=== PATIENT | female | born 1990 | race Caucasian/White ===

== ENCOUNTER → 2025-04-26 | Outpatient (CLI) | payer OTHER, SELFPAY ==
[2025-04-26 10:30] LABS: Hematocrit 34.2 % (37-47); Hemoglobin 11.6 g/dL (12.0-15.0); Immature Granulocytes Count 0.010 X10^3/uL (0.0-0.0); Mean Corp Hgb Conc 33.9 g/dL (32-36); Mean Corpuscular Volume 91.7 fL (81-99); Mean Platelet Vol. 10.1 fl (6.2-12.0); NRBC Flagged by Analyzer 0 % (0-5); Platelet Count 209 K/mm3 (150-450); RBC Distribution Width CV 12.0 % (11.6-14.6); RBC Distribution Width SD 40.3 fl (35.1-43.9); Red Blood Count 3.73 M/mm3 (4.2-5.4); White Blood Count 6.3 K/mm3 (4.4-11.0)
[2025-04-26 10:53] LABS: AST(SGOT) 18 U/L (<=31); Alanine Aminotransfer ALT/SGPT 14 U/L (<=34); Albumin, Serum 4.5 g/dL (3.5-5.0); Alkaline Phosphatase 95 U/L (35-104); Anion Gap 9 (5-15); BUN 14 mg/dL (4-19); BUN/Creat Ratio 21.0 RATIO (10-20); Calcium,Total 9.4 mg/dL (7.6-11.0); Carbon Dioxide 24.2 mmol/L (21.0-32.0); Chloride 106 mmol/L (98-108); Globulin 3.1 g/dL (2.2-4.2); Glucose 82 mg/dL (70-99); Potassium 4.2 mmol/L (3.3-5.1)
[2025-04-26 10:55] LABS: CRP < 3.00 mg/L (0.0-3.0)
--- OUTSIDE RECORDS SUMMARY | 2025-04-26 19:28 | XMS RPT_ITS | CCD ---
Author Organization [facility] Care Team Providers Care Electrician Outside Name Role Phone Miky Askew Primary Care Provider Tiara John Attending Unavailable EWA ASKEWSHUA Primary Care Unavailable ALYSSIA CAST Referring Unavailable ALYSSIA CAST Attending Unavailable ALYSSIA CAST Admitting Unavailable AZAR, MIKY Primary Care Unavailable ARABELLA RYAN Attending Unavailable ALYSSIA CAST Attending Unavailable EWA ASKEWSHUA Primary Care Unavailable Alvaro PARTS TECHNICIANTiara Schwartz Attending Provider Allergies Allergy Classification Reported Allergen(s) Allergy Type Date of Onset Reaction(s) Facility Latex (2 sources) Latex Substance Allergy 8 Swelling [facility] (5 sources) Latex Propensity to adverse reactions to drug 8 [place] (20 sources) Latex Propensity to adverse reactions 8 Hives, Itching, Swelling [facility] (1 source) Latex Drug allergy (disorder) 5 [facility] Repository Medications Current Medications Medication Drug Class(es) Dates Sig (Normalized) Sig (Original) acetaminophen 325 mg oral tablet (4 sources) Start: 09-21-2019 End: 09-21-2019 acetaminophen (TYLENOL) tablet 650 mg End: 09-23-2019 Acetaminophen (TYLENOL PO) T jen by mouth 0 09/23/2019 Discontinued (Stop Taking at Discharge) Acetaminophen (T YLENOL PO) Take by mouth 0 Active benzocaine 200 mg/ml / menthol 5 mg/ml topical spray (1 source) Standardized Chemical Allergen Start: 09-21-2019 benzocaine-menthol (DERMOPLAST) 20-0.5 % spray bifidobacterium animalis [id number] unt / lactobacillus acidophilus [id number] unt oral capsule (2 sources) Probiotic Produc t capsule Take by mouth. 0 Active docusate sodium 100 mg oral capsule (1 source) Start: 09-21-2019 docusate sodium (COLACE) capsule 100 mg Doxylamine Succinate, Sleep, (UNISOM PO) (2 sources) Doxylamine Succi ryan, Sleep, (UNISOM PO) Take by mouth 0 Active lactobacillus acidophilus [id number] unt oral capsule (1 source) Start: 10-12-2024 take 10 capsules by mouth once Lactobacillus Acidophilus (Probiotic) 10 billion cell capsule Active 50974 NMA PO ONCE October 12, 2024 1:00am lanolin 0.5 mg/mg topical ointment (1 source) Start: 09-21-2019 lanolin ointment Mesalamine (Canasa) 1,000 mg suppository (1 source) Start: 03-08-2025 Mesalamine (Canasa) 1,000 mg suppository Active 1 g RC AT BEDTIME as needed for colitis 30 1 March 08, 2025 10:08am Multivitamin tablet (1 source) Start: 10-24-2024 Multivitamin tablet Active 1 {tbl} PO daily October 24, 2024 1:00am [place]-3 Fatty Acids (FISH OIL PO) (6 sources) [place]-3 Fatty Ac ids (FISH OIL PO) Take by mouth 0 Active omeprazole 10 mg delayed release oral capsule (1 source) Proton Pump Inhibitor Start: 03-28-2021 take 1 capsule by mouth once daily omeprazole (PRILOSEC) 10 MG delayed release capsule Take 1 capsule by mouth daily 30 capsule 3 03/28/2021 Active ondansetron 4 mg oral tablet (8 sources) Serotonin-3 Receptor Antagonist Start: 10-24-2024 take 1 tablet by mouth every eight hours as needed Ondansetron Hcl 4 mg tablet Active 4 mg PO Q8H as needed October 24, 2024 1:00am Start: 08-31-2024 End: 08-31-2024 4 mg, IntraVENous, Once PRN, nausea, vomiting, Starting on Samira 08/31/24 at 0928, For 1 dose, Preprocedure Start: 03-28-2021 take 1 tablet by andreea th every eight hours as needed for nausea ondansetron (ZOFRAN ODT) 4 MG disintegrating tablet Take 1 tablet by mouth every 8 hours as needed for Nausea or Vomiting 30 tablet 1 03/28/2021 Active Start: 01-15-2021 take 1 tablet by andreea th every eight hours as needed for nausea ondansetron (ZOFRAN ODT) 4 MG disintegrating tablet Take 1 tablet by mouth every 8 hours as needed for Nausea or Vomiting 30 tablet 1 01/15/2021 Active Start: 09-21-2019 ondansetron (Z OFRAN) injection 4 mg Start: 03-15-2019 End: 09-23-2019 take 1 tablet by mouth three times daily as needed for nausea ondansetron (ZOFRAN-ODT) 4 MG disintegrating tablet TAKE 1 TABLET BY MOUTH 3 TIMES DAILY NEEDED FOR NAUSEA OR VOMITING 21 tablet 0 03/15/2019 09/23/2019 Discontinued (Stop Taking at Discharge) Vit w/Fe-Methylfol- FA (PNV PO) (6 sources) Vit w/F h-Yzqdnglkx-CM (PNV PO) Take by mouth 0 Active VIT W/FE-METHYLFOL- FA PO (20 sources) VIT W/F P-PWFDTOAKW-PO PO Take by mouth. Active VIT W/F H-DZVRLCQIM-ST PO Take by mouth. 0 Active Probiotic Product (PROBIOTIC ADVANCED PO) (3 sources) Probiotic Produc t (PROBIOTIC ADVANCED PO) Take by mouth 0 Active Probiotic Product capsule (20 sources) Probiotic Produc t capsule Take by mouth. Active Probiotic Produc t capsule Take by mouth. 0 Active raNITIdine 150 mg oral tablet (4 sources) Histamine-2 Receptor Antagonist Start: 04-07-2021 take 1 tablet by mouth once daily raNITIdine (ZANTAC) 150 MG tablet Indications: Heartburn during in second trimester Take 1 tablet by mouth daily 90 tablet 1 04/07/2021 Active Start: 08-28-2019 End: 09-23-2019 take 1 tablet by mouth twice daily ranitidine (ZANTAC) 150 MG tablet Indications: Chronic ulcerative rectosigmoiditis with complication (HCC) , Heartburn during in third trimester Take 1 tablet by mouth 2 times daily 60 tablet 2 08/28/2019 09/23/2019 Discontinued (Stop Taking at Discharge) End: 09-23-2019 raNITIdine HCl (ZANTAC PO) T jen by mouth 0 09/23/2019 Discontinued (Stop Taking at Discharge) raNITIdine HCl ( ZANTAC PO) Take by mouth 0 Active simethicone 80 mg chewable tablet (1 source) Start: 09-21-2019 simethicone (M YLICON) chewable tablet 80 mg witch rebecca 500 mg/ml medica moy pad (1 source) Start: 09-21-2019 witch rebecca-gl ycerin (TUCKS) pad Completed/Discontinued Medications Medication Drug Class(es) Dates Sig (Normalized) Sig (Original) 10 ml lidocaine hydrochloride 10 mg/ml injection (1 source) Antiarrhythmic, Amide Local Anesthetic Start: 09-21-2019 End: 09-21-2019 lidocaine PF 1 % injection mesalamine 1000 mg rectal suppository (20 sources) Aminosalicylate Start: 10-12-2024 take 1 capsule by mouth once daily in the morning Mesalamine 0.375 gram capsule,extended release 24hr Active 1.5 g PO EVERY MORNING October 12, 2024 1:00am Start: 10-12-2024 End: 03-08-2025 Mesalamine (Canasa) 1,000 mg suppository Discontinued 1 g RC AT BEDTIME as needed October 24, 2024 1:00am March 08, 2025 10:47am Start: 09-15-2023 End: 09-14-2024 mesalamine (Canasa) 1000 MG suppository Insert 1 suppository (1,000 mg) into the rectum Nightly. 30 suppository 11 09/15/2023 Active Start: 09-15-2022 End: 09-21-2025 take 4 capsules by mouth once daily mesalamine ER (Apriso) 0.375 g 24 hr capsule Take 4 capsules (1.5 g) by mouth daily. Do not crush or chew. 360 capsule 3 09/21/2024 09/21/2025 Active Start: 11-22-2020 End: 02-20-2021 mesalamine (CANASA) [address] 1 suppository rectally nightly 90 suppository 3 11/22/2020 Active Start: 09-25-2020 take 4 capsules by m outh once daily APRISO 0.375 g extended release capsule TAKE 4 CAPSULES BY MOUTH DAILY 360 capsule 6 09/25/2020 Active Start: 12-29-2019 mesalamine (CA NASA) [address] 1 suppository rectally nightly 90 suppository 3 12/29/2019 Active Start: 12-19-2019 take 4 capsules by m outh once daily APRISO 0.375 g extended release capsule TAKE 4 CAPSULES BY MOUTH DAILY 360 capsule 3 12/19/2019 Active Start: 09-22-2019 mesalamine (AP RISO) extended release capsule 1,500 mg Start: 06-09-2019 End: 11-19-2019 take 1000 mg rectal route once daily 1,000 mg, Rectal, NIGHTLY, First dose on Samira 09/21/19 at 2130 Pt taking own medication ( mesalamine 1000 mg supp.) take 4 capsules by m outh once daily mesalamine (APRISO) 0.375 g extended release capsule Take 1.5 g by mouth daily 0 Active oxyCODONE hydrochloride 5 mg oral tablet (1 source) Opioid Agonist Start: 09-21-2019 End: 09-21-2019 oxyCODONE (ROXICODONE) immediate release tablet 5 mg Start: 09-21-2019 End: 09-21-2019 oxyCODONE (ROXICODONE) immed iate release tablet 5 mg oxytocin (PITOCIN) 30 units in 500 mL infusion (1 source) Start: 09-21-2019 End: 09-21-2019 250 mL/hr, Intravenous, at 2 50 mL/hr, CONTINUOUS PRN, Bleeding, Starting Samira 09/21/19 at 1648 For Post Use Only. Give after delivery of placenta. Oxytocin 250cc is administered as an IV bolus at delivery followed by an additional 250cc over 1 hour (250cc/hr) Post Delivery oxytocin (PITOCIN) 30 units in 500 mL infusion Override Pull (1 source) Start: 09-21-2019 End: 09-21-2019 oxytocin (PITOCIN) 30 units in 500 mL infusion Override Pull VPX-QLGMVKMA-VXQO-FA PO (2 sources) End: 11-11-2022 ZPR-OBSVECBP-QUQB-F A PO Take by mouth. 0 11/11/2022 Discontinued 5 ml sodium chloride 9 mg/ml injection (12 sources) Start: 08-31-2024 End: 08-31-2024 10 mL, IntraVENous, Every 12 hours scheduled (2 times per day), First dose on Samira 08/31/24 at 0945 Start: 08-31-2024 End: 08-31-2024 take 100 mL intravenously every hour as needed, then take 20 mL intravenously every hour as needed 5-250 mL/hr, IntraVENous, PRN, if patient receiving piggyback infusions and maintenance fluids are not ordered OR KVO fluids to protect IV site / prevent frequent line interruptions/ long duration, Starting on [facility] 08/31/24 at 0935, For piggyback infusion, administer at same rate as piggyback for a total of 25 mL. Enter 25 mL into dose field and piggyback rate into rate field of order. If piggyback is infusing at a rate less than 100 mL/hr, enter 25 mL into dose field and 100 mL/hr into rate field of order. For KVO fluids, enter rate of 20 mL/hr or less into rate field of order. Start: 08-31-2024 End: 08-31-2024 take 10 mL intravenously once as needed 10 mL, IntraVENous, PRN, line care, Starting on [facility] 08/31/24 at 0935, After every IV line use Problems Active Problems Problem Classification Problem Date Documented Da te Episodic/Chronic Hemorrhoids (20 sources) Internal hemorrhoids grade I; Translations: [First degree hemorrhoids] Onset: 11-16-2018 11-16-2018 Episodic Hemorrhoids (4 sources) Internal hemorrhoids grade I; Translations: [First degree hemorrhoids] 11-16-2018 Other complications of (1 source) Heartburn; Translations: [Other specified related conditions, unspecified trimester] Onset: 04-07-2021 04-07-2021 Episodic Other and delivery including normal (20 sources) Normal ; Translations: [Term delivered] Onset: 02-20-2016 Resolved: 11-02-2019 03-05-2018 Episodic Regional enteritis and ulcerative colitis (20 sources) Chronic ulcerative rectosigmoiditis; Translations: [Ulcerative colitis] Onset: 02-20-2016 Resolved: 11-02-2019 03-02-2019 Chronic Residual codes; unclassified (2 sources) H/O: obstetric problem; Translations: [History of gestational diabetes mellitus (GDM) in prior , currently in first trimester] Onset: 03-02-2019 04-03-2019 Episodic Past or Other Problems Problem Classification Problem Date Documented Da te Episodic/Chronic Diabetes or abnormal glucose tolerance complicating ; childbirth; or the puerperium (6 sources) Gestational diabetes mellitus; Translations: [Gestational diabetes mellitus in , unspecified control] Onset: 04-29-2016 Resolved: 03-05-2018 03-05-2018 Episodic Hypertension complicating ; childbirth and the puerperium (4 sources) -induced hypertension; Translations: [-induced hypertension in third trimester] Onset: 07-25-2016 Resolved: 09-03-2016 09-03-2016 Chronic Hypertension complicating ; childbirth and the puerperium (2 sources) -induced hypertension; Translations: [Gestational [-induced] hypertension without significant proteinuria, third trimester] Onset: 07-25-2016 Resolved: 09-03-2016 09-03-2016 Episodic Immunizations and screening for infectious disease (7 sources) Rubella non-immune ; Translations: [Rubella non-immune status, antepartum] Onset: 03-16-2019 Resolved: 11-02-2019 03-16-2019 Episodic Noninfectious gastroenteritis (4 sources) Colitis; Translations: [Left sided colitis with rectal bleeding] Onset: 08-30-2018 08-30-2018 Episodic Other complications of ; puerperium affecting management of mother (6 sources) Missed labor; Translations: [Maternal care for intrauterine , not applicable or unspecified] Onset: 07-24-2016 Resolved: 09-03-2016 09-03-2016 Episodic Other complications of (7 sources) High risk ; Translations: [Supervision of high risk , unspecified, unspecified trimester] Onset: 04-03-2019 Resolved: 11-02-2019 04-03-2019 Episodic Other complications of (6 sources) Excessive growth affecting management of mother; Translations: [Maternal care for excessive growth, third trimester, not applicable or unspecified] Onset: 06-18-2016 Resolved: 09-03-2016 09-03-2016 Episodic Other complications of (6 sources) Supervision of with other poor reproductive or obstetric history, first trimester; Translations: [ with other poor obstetric history] Onset: 03-02-2019 Resolved: 11-02-2019 11-02-2019 Episodic Other complications of (6 sources) Uterine size for dates discrepancy; Translations: [Uterine size-date discrepancy, third trimester] Onset: 09-11-2019 Resolved: 11-02-2019 11-02-2019 Episodic Other complications of (3 sources) History of gestational diabetes mellitus; Translations: [Supervision of with other poor reproductive or obstetric history, unspecified trimester] Onset: 01-31-2021 Episodic Other screening for suspected conditions (not mental disorders or infectious disease) (3 sources) Cancer cervix screening status; Translations: [Encounter for screening for malignant neoplasm of cervix] Onset: 08-09-2024 08-08-2024 Episodic Unclassified (3 sources) Patient encounter status; Translations: [ care, antepartum] Onset: 09-06-2019 Resolved: 11-02-2019 11-02-2019 Results Test Name Value Interpretation Reference Range Facility 36on 11-16-2024 36 I called and spoke with patient re: sooner opening for next Wednesday. Patient did let us know she is in process of transferring GI care to a GI closer to her home. She also wanted to cancel upcoming appointment with Dr Cast. Cancelled appointment and removed from waiting list. [facility] Gastroenterology Visit Repor ton 10-24-2024 Gastroenterology Visit Report [facility] [address] [place] [address] OFFICE VISIT Date of Service: 10/24/24 MR#: [id number] Acct: [id number] Name: ZAINAB GONZALEZ Rep #: [id number] : 1990 Provider: FELA frederick Age/Sex: 33/F Location: [facility] [place] Status: Signed Intake Vital Signs 10/24/24 10:05 Height 5 ft 3 in Weight: 136 lb 4 oz BMI 24.1 BP 131/80 H Respiration 18 Pulse 90 Pulse Oximetry (%) 98 Oxygen Delivery Method room air Intake Visit Reasons: ULCERATIVE COLITIS Chief Complaint: establish for UC Systems Integration Manager Required: No Accompanied by: Daughter Is patient in pain?: No Allergies latex Adverse Reaction (Verified 10/24/24 09:52) Itching Hives Medications ???Medication ???Instructions ???Recorded ???Confirmed ???Type Lactobacillus acidophilus 10 10,000 mmu cells PO ONCE 10/12/24 10/12/24 History billion cell capsule (Probiotic) mesalamine 0.375 gram 1.5 g PO QAM 10/12/24 10/12/24 History capsule,extended release 24 hr mesalamine 1,000 mg rectal 1 g OR QHS PRN 10/24/24 10/24/24 History suppository (Canasa) multivitamin 1 tab PO QDAY 10/24/24 10/24/24 History ondansetron HCl 4 mg tablet 4 mg PO Q8H PRN 10/24/24 10/24/24 History Nurse's Note: Is having some rectal bleeding and is 99% sure it is from hemorrhoids, occasionally has diarrhea and it all seems related to her menstrual cycle. [facility] Medical History Gestational diabetes H/O flexible sigmoidoscopy Left sided colitis with rectal bleeding Surgical History Hx of colonoscopy History of dilation and curettage Family History Other Breast cancer Diabetes Hyperlipidemia Osteoarthritis Ulcerative colitis Social History adopted: Yes Smoking Status: Never smoker Electronic Cigarette Use: not used alcohol intake: never substance use type: marijuana HPI HPI Chief Complaint: establish for UC Details: ZAINAB GONZALEZ, is a 33 F who presents to the office today for Colon: 08/31/2024 ([place]) Findings: The digital rectal exam was normal. Internal hemorrhoids were found during retroflexion. The hemorrhoids were small and Grade I (internal hemorrhoids that do not prolapse). 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 Note: Although there is some limited active inflammation, the areas of moderate chronicity suggests a predominantly quiescent phase. Still, a secondary pattern with mild activity (intraepithelial lymphocytosis and focal surface injury) is present. While this pattern is subtle, it raises the possibility of an associated lymphocytic colitis. Please correlate clinically. SIGMOIDOSCOPY 11/16/2018 ([place]) A. LEFT COLON BIOPSY - FRAGMENT OF COLONIC MUCOSA WITH NO SIGNIFICANT HISTOPATHOLOGIC CHANGES B. RECTOSIGMOID, BIOPSY - CHRONIC ACTIVE COLITIS STOOL: 1x a day - formed BLEEDING: only during a flare - no bleeding in the past 3 months Mucus: none in past 3 months ABD PAIN: denies Rectal pain: denies MEDS: Apriso 4 capsules once daily, Canasa PRN - denies any Canasa in the past 2 months - weight is stable - reports when her kids have viral illnesses and she gets sick - she will have a UC flare - she was seeing Dr. Cast - but had to wait 7 months to get a f/u appt. and this was not working for her Initial diagnosis in 2016 - presenting symptoms were blood and mucus in stools - she has been using Apriso and Canasa - has only been using Canasa when in a flare - reports she has gone as long as 3-4 years w/o any UC flares - denies any symptoms for the past 2-3 months ROS Const Constitutional: No fatigue, fever(s) or weight change ENT ENT: No difficulty swallowing Gastro GI: Positive for bloating, Blood in stool and nausea/dyspepsia; No abdominal pain, belching, change in bowel habits, change in stool character, coffee ground emesis, constipation, cramping, diarrhea, heartburn, difficulty swallowing, feeling full early, excessive flatus, incontinent of stools, Vomiting blood/hematemesis, loose stools, Black,tarry stools, pain with swallowing, vomiting or other Musc Musculoskeletal: No joint pain Skin Skin: No yellowing of the eye or itchy eyes Psych Psychiatric: No anxiety and No depression Endo Endocrine: No fatigue or weight change Aller/Imm Allergy/Immunologic: No itchy eyes Enrike/Lymp Hematologic/Lymphati c: No easy bleeding or easy bruising Exam Const General: healthy appearing, no acute distress and well developed Nutritional Appearance: average body habitus and well nour (more content not included)... [facility] 3610-03-2024 36 Called and spoke with patient to get her scheduled for follow up with Dr Cast. Patient does have [facility] so will let us know if she needs to transfer care due to [facility] not accepting her insurance. Patient only available [phone] or [phone]. Scheduled for next available appointment in that time, 03/20/[address] Cast. Will also add patient to wait list in case sooner appointment becomes available. [facility] 36on 09-21-2024 36 Medication refilled [address] 09-20-2024 36 Name of Caller: Zainab Contact Reason for Appointment: Zainab called wishing to schedule a colonoscopy follow up appointment. Colonoscopy completed 08/31/2024. Patient advising does not wish to wait until February (next available appointment for CAC), and patient states prefers virtual or telemedicine visit if possible. Please advise. Office Name: Gastroenterology [facility] 36 Medication name: mesalamine ER (Apriso) 0.375 g 24 hr capsule Medication dosage: 0.375 g (Grams) Monthly quantity needed: 120 How many day supply requestin year Medication route: oral (PO) Medication administration time(s): Take 4 capsules (1.5 g) by mouth daily. Do not crush or chew If taking medication PRN, reason for taking medication: N/A If this is a controlled substance do you receive this or any other controlled medication from any other doctor or facility: N/A Ordering provider: Dr Cast Date of last office visit: 12/02/2023 Date of next office visit: not scheduled Date of last refill: (see medication tab): 09/13/2023 Updated/Validated preferred pharmacy: Yes Patient instructed to contact the pharmacy prior to picking up the medication: Yes [facility] Nursing Noteon 08-31-2024 Nursing Note Did not reach cecum, patient unable to tolerate with no sedation. Withdrawing scope. [address] 08-30-2024 36 Called and informed patient. Patient voiced full understanding. [place] [id number] Please advise. [facility] 36on 08-29-2024 36 Name of Caller: Zainab Contact Reason for Appointment: Patient stated that she had a Colonoscopy schedule on 08/31/24. Stated she got a letter that if she has a cold to call the office. Patient stated that she is not sick that she just has a little head cold from her kids being in school and bringing germs home. Patient also wanting to know that since she is not getting sedation, if she is aloud to listen to a book on audio while getting procedure done. Please call patient back to advise. Office Name: Gastroenterology Medication Refills need, if any: N/A Medication Name: N/A [facility] Office Visiton 08-09-2024 Follow-up visit [id number] Zainab Gonzalez 1990 F Date Provider Department Center 08/09/2024 [facility] Family History Adopted: Yes Problem Relation Age of Onset Osteoarthritis Mother Ovarian cancer Neg Hx Diabetes Paternal Grandmother Hyperlipidemia Father Ulcerative colitis Other Comments: 1/2 sibling Colon cancer Neg Hx Breast cancer Paternal Grandmother Comments: elderly Family Status - Relation Status Age at Mother Alive Neg Hx Paternal Grandmother Father Alive Other Level of Service:53991 OR PERIODIC PREVENTIVE MED EST PATIENT 18-39 YRS Reason for Visit and Comments: Annual Exam [83] - Well woman Last pap-04/12/2023, normal Normal [facility] Progress Noteon 08-09-2024 Progress Note Temperature Regulator was offered to the patient for exam. Patient accepted, clinical laboratory medical director in room during exam Normal [facility] Progress Note Zainab Gonzalez 08/09/2024 33 y.o. Primary Care Physician: Miky Askew, Chief Complaint Patient presents with Annual Exam Well woman Last pap-04/12/2023, normal HPI : Zainab Gonzalez is a 33 y.o. female here for annual exam Gynecologic History: Patient's last menstrual period was 08/04/2024 (exact date). Pt without complaints. Regular periods every month. No heavy bleeding or cramping. No pelvic pain. No vaginal discharge. OB History Para Term AB Living 4 3 3 0 1 3 SAB IAB Ectopic Multiple Live Births 1 0 0 0 3 # Outcome Date GA Lbr Carlos/2nd Weight Sex Type Anes PTL Lv 4 Term 08/28/21 40w3d 4082 g (9 lb) F Vag-Spont MARY Name: Cynthia 3 Term 12/05/19 39w5d F Vag-Spont None N MARY Comments: Active labor was 4 hours Name: Carla Gonzalez 2 SAB 01/31/17 Comments: D&C 1 Term 07/25/16 39w2d 3175 g (7 lb) M Vag-Spont EPI N MARY Complications: History of gestational diabetes mellitus (GDM) Name: Yuri Gonzalez Apgar1: 9 Apgar5: 9 Past Medical History: Diagnosis Date control Condoms/radha family planning- hx of OCP camrese Body mass index (BMI) of 24.0-24.9 in adult Dysmenorrhea having vomiting on Day 1 of period, started zofran Family history of breast cancer brca offered Gestational diabetes 04/29/2016 History of COVID-19 History of vaccination against human papillomavirus DECLINED GARDASIL Menorrhagia Missed SCHEDULED FOR THE SURGERY ON 03/07/2018 Nausea & vomiting uses zofran first day or 2 of period Ulcerative colitis (HCC) Past Surgical History: Procedure Laterality Date COLONOSCOPY DILATION AND CURETTAGE OF UTERUS DILATION AND CURETTAGE OF UTERUS 03/07/2018 FLEXIBLE SIGMOIDOSCOPY 11/16/2018 bx taken Family History Adopted: Yes Problem Relation Name Age of Onset Osteoarthritis Mother Ovarian cancer Neg Hx Diabetes Paternal Grandmother Hyperlipidemia Father Ulcerative colitis Other 1/2 sibling Colon cancer Neg Hx Breast cancer Paternal Grandmother elderly Social History Socioeconomic History Marital status: Spouse name: Not on file Number of children: Not on file Years of education: Not on file Highest education level: Not on file Occupational History Not on file Tobacco Use Smoking status: Never Smokeless tobacco: Never Vaping Use Vaping status: Never Used Substance and Sexual Activity Alcohol use: No Alcohol/week: 0.0 standard drinks of alcohol Drug use: Not Currently Types: Marijuana Sexual activity: Yes Partners: Male Other Topics Concern Not on file Social History Narrative Not on file Social Drivers of Health Financial Resource Strain: Not on file Food Insecurity: Not on file Transportation Needs: No Transportation Needs (08/09/2024) PRAPARE - Transportation Lack of Transportation (Medical): No Lack of Transportation (Non-Medical): No Physical Activity: Not on file Stress: Not on file Social Connections: Not on file Intimate Partner Violence: Not on file Housing Stability: Low Risk (08/09/2024) Housing Stability Vital Sign Unable to Pay for Housing in the Last Year: No Number of Times Moved in the Last Year: 0 Homeless in the Last Year: No MEDICATIONS: Current Outpatient Medications Medication Sig Dispense Refill mesalamine (Canasa) 1000 MG suppository Insert 1,000 mg into the rectum Nightly. mesalamine (Canasa) 1000 MG suppository Insert 1 suppository (1,000 mg) into the rectum Nightly. 30 suppository 11 mesalamine ER (Apriso) 0.375 g 24 hr capsule Take 4 capsules (1.5 g) by mouth daily. Do not crush or chew. 360 capsule 3 VIT [id number] PO Take by mouth. Probiotic Product capsule Take by mouth. No current facility-administere d medications for this visit. ALLERGIES: Allergies as of 08/09/2024 - Reviewed 08/09/2024 Allergen Reaction Noted Latex Hives, Itching, and Swelling 03/07/2018 REVIEW OF SYSTEMS: CONSTIUTIONAL: No fever, chills or malaise; No weight change or fatigue CV: No Chest Pain with Exertion, Palpitations, Syncope, Edema, Arrhythmia RESPIRATORY: No SOB, Pneumoniae,Cough, BREAST: No breast abnormalities or lumps GI: No Indigestion, Heartburn, Nausea, vomiting, Diarrhea, Constipation,Bloatin g or Bowel Changes; No Bloody Stools or melena : No Dysuria, Hematuria or Nocturia. No Urinary Incontinence or Vaginal Discharge,vaginal bleeding, or dysparuenia. NEURO: No CVA, Migraines, Epilepsy, Seizure Hx, or Limb Weakness DERM: No Rash, Itching, Hives, Mole Changes or Cancer PSYCH: No Depression, Homicidal thoughts,suicidal thoughts, or anxiety MUSCULOSKELETAL: No Arthralgia, or Arthritis HEME and LYMPH :No Lymphoma, Von Willebrand's, Hemophillia or Bleeding History PHYSICAL EXAM: Vitals: 08/09/24 1235 BP: 110/60 Weight: 57.2 kg (126 lb) Height: 1.6 m (5' 3 (more content not included)... Normal [facility] Progress Note Normal Normal [facility] 36on 04-07-2024 36 Spoke with pt, Colonoscopy r/s to 08/31/24 10:15 am, with Dr Cast. [facility] schedule updated Order submitted Open Case request called to scheduling (Hien) Case # [id number] Endo packet mailed to patient Prep sent via [employer] if pt acct active No sedation per pt request 60 min per provider Pt is aware they will need a straddle truck driver to take them home from procedure. Must be family member or friend. They cannot use any ride programs. Ex: Uber, Lyft, SCAT, bus, etc...) Normal [facility] Progress Noteon 12-02-2023 Progress Note GASTROENTEROLOGY OUTPATIENT TELEHEALTH VISIT Patient: Zainab Gonzalez Date of : 1990 Age: 33 y.o. Sex: female PCP: MIKY ASKEW DO Subjective: Patient was identified and seen today via Telehealth by agreement and consent. I used the following Telehealth technology: Audio and video capabilities. Patient location: Patient Location: Home. This patient encounter is appropriate and reasonable under the circumstances: transportation issues and feeling sick/caring for children . The patient has been advised of the potential risks and limitations of this mode of treatment (including but not limited to the absence of in-person examination) and has agreed to be treated in a remote fashion in spite of them. Any and all of the patient's/patient's family's questions on this issue have been answered and I have made no promises or guarantees to the patient. The patient has also been advised to contact this office for worsening conditions or problems, and seek emergency medical treatment and/or call 911 if the patient deems either necessary. The patient stated that they are currently in the [facility]. If the patient is a minor, permission has been obtained by the parent or guardian for the patient to receive medical care at this visit. Telehealth visit I have spent 30 minutes with the patient for TE and reviewing the chart and coordinating their care. S: GI f/u of IBD. Last GI clinic visit was virtual visit 10/2022 (see prior clinic note for details) Since last clinic visit, pt has been stable. IBD sx have controlled. Pt reports a intermittent flares since last visit that were controlled with Canasa suppositories. She is still on Apriso - does not need refills. 2 yr daughter, 4 yrsDaughter (Carla), 7 yrs Son Yuri GERD sx resolved. Pt attributes prior sx to Prior Colonoscopy: [address] Sheppard Flex Si11/16/2018 c/w proctitis Past Medical History: Diagnosis Date control Condoms/radha family planning- hx of OCP camrese Body mass index (BMI) of 24.0-24.9 in adult Dysmenorrhea having vomiting on Day 1 of period, started zofran Family history of breast cancer brca offered Gestational diabetes 04/29/2016 History of COVID-19 History of vaccination against human papillomavirus DECLINED GARDASIL Menorrhagia Missed SCHEDULED FOR THE SURGERY ON 03/07/2018 Nausea & vomiting uses zofran first day or 2 of period Ulcerative colitis (HCC) Past Surgical History: Procedure Laterality Date COLONOSCOPY DILATION AND CURETTAGE OF UTERUS DILATION AND CURETTAGE OF UTERUS 03/07/2018 FLEXIBLE SIGMOIDOSCOPY 11/16/2018 bx taken Social History Occupational History Not on file Tobacco Use Smoking status: Never Smokeless tobacco: Never Vaping Use Vaping Use: Never used Substance and Sexual Activity Alcohol use: No Alcohol/week: 0.0 standard drinks of alcohol Drug use: Not Currently Types: Marijuana Sexual activity: Yes Partners: Male Family History Adopted: Yes Problem Relation Name Age of Onset Osteoarthritis Mother Ovarian cancer Neg Hx Diabetes Paternal Grandmother Hyperlipidemia Father Ulcerative colitis Other 1/2 sibling Colon cancer Neg Hx Breast cancer Paternal Grandmother elderly Prior to Admission medications Medication Sig Start Date End Date Taking? Authorizing Provider mesalamine (Canasa) 1000 MG suppository Insert 1,000 mg into the rectum Nightly. Historical Provider, mesalamine (Canasa) 1000 MG suppository Insert 1 suppository (1,000 mg) into the rectum Nightly. 09/15/23 09/14/24 Alyssia Cast MD mesalamine ER (Apriso) 0.375 g 24 hr capsule Take 4 capsules (1.5 g) by mouth daily. Do not crush or chew. 09/13/23 09/12/24 Alyssia Cast MD VIT [id number] PO Take by mouth. Historical Provider, Probiotic Product capsule Take by mouth. Historical Provider, Allergies: Allergies Allergen Reactions Latex Hives, Itching and Swelling Localized to area of involvement Review of Systems: Constitutional: see HPI History obtained from the patient HENT ROS: denies ARMIJO, denies ear pain, denies sore throat, denies sinus pressure, + runny nose, post nasal drip Eyes: denies blurry vision Respiratory ROS: denies SOB, + cough Cardiovascular ROS: denies chest pain Gastrointestinal ROS: see HPI Genito-Urinary ROS: denies dysuria Musculoskeletal ROS: denies joint pain Neurological ROS: denies seizures, weakness, difficulty sleeping Dermatological ROS: denies rash Objective: Physical Exam: There were no vitals taken for this visit. No direct examination - Telehealth visit Gen: comfortable, appears nourished Skin: warm, dry Eyes: anicteric sclera Chest: normal effort Neuro: nonfocal Psych: normal mood and affect, thought content normal, alert and oriented Labs/Studies reviewed in Epic at today's current clinic visit (more content not included)... Normal [facility] SARS CoV 2 RNA(COVID 19), QU ALITATIVE [facility] 07-03-2021 SARS CoV 2 RNA Detected Abnormal NOT DETECTED [facility] Comment on above: Order Comment: 0 Result Comment: A Detected result indicates that the patient's specimen was positive for SARS-CoV-2 RNA. Test Method: Nucleic Acid Amplification Test including reverse mixing tank operator polymerase chain reaction (RT-PCR and mixing tank operator mediated amplification (TMA). The test method meets the [place] Centers for Disease Control and prevention (CDC) pre departure and arrival requirement for viral test for COVID-19 dated November 14, 2020. Testing requirements for traveling may change with time. The patient is responsible for determining the test requirements for each nation while they are traveling. This test has been authorized by the FDA under an Emergency Use Authorization (EUA) for use by authorized laboratories. Please review the Fact Sheets and FDA authorized labeling available for health care providers and patients using the following websites: https://www.[employer].com/home/Covid-19/HCP/NAAT/fact-sh eet2 https://www.[employer]/home/Covid-19/Patients/NAAT/ fact-sheet2 Due to the current public health emergency, [facility] is accepting samples from appropriate clinical sources collected using wide variety of swabs and transport media for COVID-19. Not detected test results derived from specimens received in non- commercially manufactured viral collection kits or those not yet authorized by FDA for COVID-19 testing should be cautiously evaluated and take extra precautions such as such as additional clinical monitoring, including collection of an additional specimen. Additional information about COVID-19 can be found at the [facility] website: www.[employer].com/Covid19. Performed By: #### [id number] #### [facility] [address], [address] [place] [address] Fisher Crab: Demetri Quezada MD CBCOrdered By: Nydia Cee on 05-20-2021 Hematocrit (Bld) [Volume fraction] 33.3 % Low 35.0 - 47.0 % [facility] Work Phone: Hemoglobin.gastrointes tinal spec 1 Ql (Stl) 11.4 g/dL Low 11.7 - 16.0 g/dL [facility] Work Phone: Interpretation and review of laboratory results Abnormal [facility] Work Phone: MCH (RBC) [Entitic mass] 32.2 pg 26.0 - 34.0 pg [facility] Work Phone: MCHC (RBC) [Mass/Vol] 34.4 % 32.0 - 36.0 % [facility] Work Phone: MCV (RBC) [Entitic vol] 93.6 fL 79.0 - 98.0 fL [facility] Work Phone: Platelet distribution width (Bld) [Ratio] 13.0 % 11.5 - 14.5 % [facility] Work Phone: Platelet mean volume (Bld) [Entitic vol] 7.5 fL 7.4 - 10.4 fL [facility] Work Phone: Platelets (Bld) [#/Vol] 233 10*3/uL 140 - 440 10*3/uL [facility] Work Phone: RBC (Bld) [#/Vol] 3.56 10*6/uL Low 3.80 - 5.2 0 10*6/uL [facility] Work Phone: WBC (Bld) [#/Vol] 8.5 10*3/uL 3.6 - 10.7 10*3/uL [facility] Work Phone: Test Performed by [employer], [address] , [place] [address] [employer]ino[employer] Work Phone: [facility] Work Phone: Glucose Challenge,1Hron 08-0 Glucose [Mass/Vol] 132 mg/dL Normal <140 [facility] Comment on above: Performed By: #### G C1H, HEMOG #### [facility] [address] [place] [address] Glucose tolerance, 1 hourOrd ered By: Nydia Cee on 05-20-2021 Glucose [Mass/Vol] 132 mg/dL <140 [facility] Work Phone: Test Performed by [facility] [employer], [address] , [address] Work Phone: [facility] Work Phone: Hemogramon 05-20-2021 Erythrocyte distribution width (RBC) [Ratio] 13.0 % Normal 11.5-14.5 [facility] Comment on above: Performed By: #### G C1H, HEMOG #### [facility] [address] [place] [address] Hematocrit (Bld) [Volume fraction] 33.3 % Low 35.0-47.0 [facility] Comment on above: Performed By: #### G C1H, HEMOG #### [facility] [address] [place] [address] Hemoglobin (Bld) [Mass/Vol] 11.4 g/dL Low 11.7-16.0 [facility] Comment on above: Performed By: #### G C1H, HEMOG #### [facility] [address] [place] [address] MCH (RBC) [Entitic mass] 32.2 pg Normal 26.0-34.0 [facility] Comment on above: Performed By: #### G C1H, HEMOG #### [facility] [address] [place] [address] MCHC 34.4 % Normal 32.0-36.0 [facility] Comment on above: Performed By: #### G C1H, HEMOG #### [facility] [address] [place] [address] MCV (RBC) [Entitic vol] 93.6 fL Normal 79.0-98.0 [facility] Comment on above: Performed By: #### G C1H, HEMOG #### [facility] [address] [place] [address] Platelet mean volume (Bld) [Entitic vol] 7.5 fL Normal 7.4-10.4 [facility] Comment on above: Performed By: #### G C1H, HEMOG #### [facility] [address] [place] [address] Platelets (Bld) [#/Vol] 233 10*3/uL Normal 140-440 [facility] Comment on above: Performed By: #### G C1Lindsay, HEMOG #### [facility] [address] [place] [address] RBC (Bld) [#/Vol] 3.56 10*6/uL Low 3.80-5.20 [facility] Comment on above: Performed By: #### G C1Lindsay, HEMOG #### [facility] [address] [place] [address] WBC (Bld) [#/Vol] 8.5 10*3/uL Normal 3.6-10.7 [facility] Comment on above: Performed By: #### G C1Lindsay, HEMOG #### [facility] [address] [place] [address] Hemoglobin Evaluationon 02-15 Erythrocyte Cnt 3.89 Mill/uL Normal 3.80-5.10 [facility] Comment on above: Performed By: #### G C1Lindsay, HEMOG #### [facility] [address] [place] [address] Hemoglobin A 98.0 % Normal >96.0 [facility] Comment on above: Performed By: #### G C1H, HEMOG #### [facility] [address] [place] [address] Hemoglobin A2 2.0 % Low 2.2-3.2 [facility] Comment on above: Performed By: #### G C1H, HEMOG #### [facility] [address] [place] [address] Hemoglobin F 0.0 % Normal <2.0 [facility] Comment on above: Performed By: #### G C1H, HEMOG #### [facility] [address] [place] [address] Interpretation see below Normal [facility] Comment on above: Result Comment: DECR EASED HbA2 There is a normal adult pattern of hemoglobins with the exception of reduced HbA2. Reduced HbA2 is a relatively common acquired disorder. It is commonly decreased in iron deficiency anemia. If the patient has microcytosis, and serum iron, TIBC, percent saturation and ferritin have excluded iron deficiency, the patient could have delta thalassemia or a delta chain variant alone. Acquired forms of alpha thalassemia can also decrease HbA2 such as seen in some cases of sideroblastic anemia, juvenile myelomonocytic leukemia, erytho- leukemia, and myelodysplastic syndrome which cause decreased HbA2 via impairment of alpha globin synthesis; however, in pre-malignant and malignant disease, hemoglobin F levels are usually elevated. Rare variant hemoglobins have been known to co-elute with hemoglobin A by high-performance liquid chromatography or capillary zone electrophoresis. If clinically indicated, Thalassemia and Hemoglobinopathy comprehensive is available (Test code 58509). Results were reviewed and interpreted by Mckenzie Squires, Ph.D. If additional information is needed, please call [phone]. Test Performed by [facility], [facility], [address] [place] [address] Derek Loza M.D., Ph.D., Director of Laboratories , CLIA [id number] Performed By: #### G C1H, HEMOG #### [facility] [address] [place] [address] MCH 31.8 pg Normal 27.0-33.0 [facility] Comment on above: Performed By: #### G C1H, HEMOG #### [facility] [address] [place] [address] MCV 93.0 FL Normal 80.0-100.0 [facility] Comment on above: Performed By: #### Anna Rahman, HEMOG #### [facility] [address] [place] [address] RDW 13.5 % Normal 11.0-15.0 [facility] Comment on above: Result Comment: Test Performed by [facility], [address] [facility], [address] [place] [address] Derek Loza M.D., Ph.D., Director of Laboratories , [place] [id number] Performed By: #### Anna Rahman, HEMOG #### [facility] [address] [place] [address] HIV 1,2 Ab; p24 Agon 021 HIV 1,2 Ab; p24 Ag Non-Reactive Normal Nonreactive [facility] Comment on above: Result Comment: Resu lts obtained using the FDA cleared 4th generation HIV test. This test detects antibodies to HIV1, HIV2, HIV Group O, and the presence of the HIV-1 p24 antigen. A Non-Reactive re- sult indicates the patient is negative for both HIV antibody and HIV p24 antigen. All reactive results will undergo reflex confirmation testing at an additional charge. Performed By: #### Anna Rahman, HEMOG #### [facility] [address] [place] [address] Hep B Surface Agon Hep B Surface Ag Not detected Normal Not-Detected [facility] Comment on above: Performed By: #### Anna Rahman, HEMOG #### [facility] [address] [place] [address] Hep C Antibodyon 02-21-2021 Hep C Antibody Not detected Normal Not-Detected [facility] Comment on above: Result Comment: Selena ents with DETECTED Hepatitis C Ab results should have a new specimen submitted for supplemental testing with a Hepatitis C Quantitative RNA assay (viral load), if clinically indicated. Performed By: #### G C1Lindsay, HEMOG #### [facility] [address] [place] [address] RPR, Qualon 02-21-2021 RPR, Qual Non-Reactive Normal Non-Reactive [facility] Comment on above: Performed By: #### G C1H, HEMOG #### [facility] [address] [place] [address] ABO Rh Blood Typeon 02-21-20 21 ABO and Rh group Nom (Bld) ABO Group: A Rh, Gel: POS Normal [facility] Comment on above: Performed By: #### A ART GARCIA #### [facility] ABO/RHOrdered By: Deanne Gross on 02-20-2021 ABO Grouping A [facility] Work Phone: Rh Type Positive [facility] Work Phone: Antibody Screen Gelon 2020 Antibody Screen Gel Antibody Screen Gel: NEG Normal [facility] Comment on above: Performed By: #### ART CANO #### [facility] [employer] CBCOrdered By: Deanne conteh on 02-20-2021 Hematocrit (Bld) [Volume fraction] 35.1 % 35.0 - 47.0 % [facility] Work Phone: Hemoglobin.gastrointes tinal spec 1 Ql (Stl) 12.2 g/dL 11.7 - 16.0 g/dL [facility] Work Phone: MCH (RBC) [Entitic mass] 31.0 pg 26.0 - 34.0 pg [facility] Work Phone: MCHC (RBC) [Mass/Vol] 34.7 % 32.0 - 36.0 % [facility] Work Phone: MCV (RBC) [Entitic vol] 89.6 fL 79.0 - 98.0 fL [facility] Work Phone: Platelet distribution width (Bld) [Ratio] 13.1 % 11.5 - 14.5 % [facility] Work Phone: Platelet mean volume (Bld) [Entitic vol] 7.6 fL 7.4 - 10.4 fL [facility] Work Phone: Platelets (Bld) [#/Vol] 286 10*3/uL 140 - 440 10*3/uL [facility] Work Phone: RBC (Bld) [#/Vol] 3.92 10*6/uL 3.80 - 5.2 0 10*6/uL [facility] Work Phone: WBC (Bld) [#/Vol] 10.1 10*3/uL 3.6 - 10.7 10*3/uL [facility] Work Phone: Test Performed by [facility], [address] [place] [address] [facility] Work Phone: Glucose Challenge,1Hron Glucose [Mass/Vol] 123 mg/dL Normal <140 [facility] Comment on above: Performed By: #### H KELLY GC1H #### [facility] [address] [address] #### HIV4, RPR, HEPC, HBSAG #### [facility] [address] [place] [phone] #### HGBFO #### The performing lab is in the report. #### RUBG #### [facility] [address] [place] [address] Glucose tolerance, 1 hourOrd ered By: Deanne Gross on 02-20-2021 Glucose [Mass/Vol] 123 mg/dL <140 [facility] Work Phone: Test Performed by [employer], [address] , [place] [address] [facility] Work Phone: Hemogramon 02-20-2021 Erythrocyte distribution width (RBC) [Ratio] 13.1 % Normal 11.5-14.5 [facility] Comment on above: Performed By: #### H KELLY GC1H #### [facility] [address] [place] [address] #### HIV4, RPR, HEPC, HBSAG #### [facility] [address] [place] [phone] #### HGBFO #### The performing lab is in the report. #### RUBG #### [facility] [address] [place] [address] Hematocrit (Bld) [Volume fraction] 35.1 % Normal 35.0-47.0 [facility] Comment on above: Performed By: #### H KELLY GC1H #### [facility] [address] [place] [address] #### HIV4, RPR, HEPC, HBSAG #### [address] #### HGBFO #### The performing lab is in the report. #### RUBG #### [facility] [address] [place] [address] Hemoglobin (Bld) [Mass/Vol] 12.2 g/dL Normal 11.7-16.0 [facility] Comment on above: Performed By: #### H KELLY GC1 #### [address] [place] [address] #### HIV4, RPR, HEPC, HBSAG #### [address] #### HGBFO #### The performing lab is in the report. #### RUBG #### [place] [address] [place] [address] MCH (RBC) [Entitic mass] 31.0 pg Normal 26.0-34.0 [facility] Comment on above: Performed By: #### H KELLY GC1H #### [address] [place] [address] #### HIV4, RPR, HEPC, HBSAG #### [address] #### HGBFO #### The performing lab is in the report. #### RUBG #### [facility] [address] [place] [address] MCHC 34.7 % Normal 32.0-36.0 [facility] Comment on above: Performed By: #### H EMOAnna, GC1H #### [facility] [address] [place] [address] #### HIV4, RPR, HEPC, HBSAG #### [address] #### HGBFO #### The performing lab is in the report. #### RUBG #### [facility] [address] [place] [address] MCV (RBC) [Entitic vol] 89.6 fL Normal 79.0-98.0 [facility] Comment on above: Performed By: #### H KELLY GC1H #### [facility] [address] [place] [address] #### HIV4, RPR, HEPC, HBSAG #### [address] #### HGBFO #### The performing lab is in the report. #### RUBG #### [facility] [address] [place] [address] Platelet mean volume (Bld) [Entitic vol] 7.6 fL Normal 7.4-10.4 [facility] Comment on above: Performed By: #### H KELLY GC1H #### [address] [place] [address] #### HIV4, RPR, HEPC, HBSAG #### [address] #### HGBFO #### The performing lab is in the report. #### RUBG #### [place] [address] [place] [address] Platelets (Bld) [#/Vol] 286 10*3/uL Normal 140-440 [facility] Comment on above: Performed By: #### H KELLY GC1H #### [address] [place] [address] #### HIV4, RPR, HEPC, HBSAG #### [address] #### HGBFO #### The performing lab is in the report. #### RUBG #### [facility] [address] [place] [address] RBC (Bld) [#/Vol] 3.92 10*6/uL Normal 3.80-5.20 [facility] Comment on above: Performed By: #### H EMOG, GC1H #### [facility] [address] [place] [address] #### HIV4, RPR, HEPC, HBSAG #### [address] [phone] #### HGBFO #### The performing lab is in the report. #### RUBG #### [facility] [address] [place] [address] WBC (Bld) [#/Vol] 10.1 10*3/uL Normal 3.6-10.7 [facility] Comment on above: Performed By: #### H EMOG, GC1H #### [facility] [address] [place] [address] #### HIV4, RPR, HEPC, HBSAG #### [address] [phone] #### HGBFO #### The performing lab is in the report. #### RUBG #### [facility] [address] [place] [address] No Panel InformationOrdered By: Deanne Gross on 02-20-2021 Test Performed by [facility] [employer] [facility], [address] , [place], [place] [address] [facility] Work Phone: RubellaOrdered By: Deanne Gross on 02-20-2021 Rubella virus IgG Ql (S) 27.9 [facility] Work Phone: Comment on above: Interpretation Table : <10.0 Antibody NOT Detected >=10.0 Antibody Detected Test Performed by [facility], [address] [place], [place] [address] [facility] Work Phone: Rubella Immune Statuson 05-0 Rubella Immune Status 27.9 Normal [facility] Comment on above: Result Comment: Inte rpretation Table: <10.0 Antibody NOT Detected >=10.0 Antibody Detected Performed By: #### H EMOG, GC1H #### [employer] [address] [place] [address] #### HIV4, RPR, HEPC, HBSAG #### [employer] [address] [place] [address] #### HGBFO #### The performing lab is in the report. #### RUBG #### [facility] [employer] [facility] [address] [place] [address] HCG, Quantitative, on 12-19-2020 hCG Quant 2015 m[IU]/mL Abnormal [facility] Work Phone: Comment on above: Females < 5 Values in should double every 2 to 3 days for the first 6 weeks.Elevated concentrations of human chorionic gonadotropin (hCG) measured in the first trimester of are observed in normal , but may serve as an indication of chorionic carcinoma, hydatiform mole, or multiple .Decreasing hCG concentrations indicate threatened or missed , recent termination of , ectopic , gestosis or intrauterine . Irma- and postmenopausal females may have detectable hCG concentrations (< or = to 14 mIU/mL) due to pituitary production of hCG. Serum follicle-stimulating hormone measurement may aid in ruling-out in this population. Cutoffs of greater than 20 to 45 mIU/mL have been suggested and are method dependent. False-elevations (called phantom human chorionic gonadotropin: hCG) may occur with patients who have human antianimal or heterophilic antibodies. Some specimens may not dilute linearly due to abnormal forms of hCG. Elevated hCG concentrations not associated with are found in patients with other diseases such as tumors of the germ cells, ovaries, bladder, pancreas, stomach, lungs, and liver. This test is not intended to detect or monitor tumors or gestational trophoblastic disease. Interpretation and review of laboratory results Abnormal [facility] Work Phone: Test Performed by [facility], [address] , [place], [place] [address] [facility] Work Phone: hCG Quantitativeon 1 hCG Quantitative 2014 m[IU]/mL Abnormal [facility] Comment on above: Result Comment: Fema les < 5 Values in should double every 2 to 3 days for the first 6 weeks.Elevated concentrations of human chorionic gonadotropin (hCG) measured in the first trimester of are observed in normal , but may serve as an indication of chorionic carcinoma, hydatiform mole, or multiple .Decreasing hCG concentrations indicate threatened or missed , recent termination of , ectopic , gestosis or intrauterine . Irma- and postmenopausal females may have detectable hCG concentrations (< or = to 14 mIU/mL) due to pituitary production of hCG. Serum follicle-stimulating hormone measurement may aid in ruling-out in this population. Cutoffs of greater than 20 to 45 mIU/mL have been suggested and are method dependent. False-elevations (called phantom human chorionic gonadotropin: hCG) may occur with patients who have human antianimal or heterophilic antibodies. Some specimens may not dilute linearly due to abnormal forms of hCG. Elevated hCG concentrations not associated with are found in patients with other diseases such as tumors of the germ cells, ovaries, bladder, pancreas, stomach, lungs, and liver. This test is not intended to detect or monitor tumors or gestational trophoblastic disease. Performed By: #### Q WNT4 #### [facility] [address] [place] [address] CORONAVIRUS 2019 BY PCRon CORONAVIRUS 2019,PCR NOT DETECTED Normal Not Detected [facility] Comment on above: Result Comment: . This assay is designed to detect the N, ORF1ab and/or S genes of SARS-CoV-2 via nucleic acid amplification. A Negative (NOT DETECTED) result does not preclude 2019-nCoV infection since the adequacy of sample collection and/or low viral burden may result in presence of viral nucleic acids below the clinical sensitivity of this test method. Negative (NOT DETECTED) result should not be used as the sole basis for treatment or other patient management decisions. Rather negative results should be combined with clinical observations, patient history, and epidemiological information to make patient management decisions. Fact sheet for providers: https://www.fda.gov/media/964975/download Fact sheet for patients: https://www.fda.gov/media/135725/download This test has received FDA Emergency Use Authorization (EUA) and has been verified by [facility] ([facility]). This test is only authorized for the duration of time that circumstances exist to justify the authorization of the emergency use of in vitro diagnostic tests for the detection of SARS-CoV-2 virus and/or diagnosis of COVID-19 infection under section 564(b)(1) of the Act, 21 U.S.C. 360bbb-3(b)(1), unless the authorization is terminated or revoked sooner. [facility] is certified under CLIA-88 as qualified to perform high complexity testing. Testing is performed in the [facility] laboratories located at [address] [place] [address]. Performed By: #### C OV19 #### [address] [place] [address] DATE OF SYMPTOM ONSET [[id number]]? [id number] Normal [facility] Comment on above: Performed By: #### C OV19 #### [address] [place] [address] EMPLOYED IN HEALTHCARE? No Normal [facility] Comment on above: Performed By: #### C OV19 #### [address] [facility] [place] [address] FIRST COVID NASAL SWAB TEST? Yes Normal [facility] Comment on above: Performed By: #### C OV19 #### [address] [facility] [place] [address] HOSPITALIZED (OR PLANNED TO BE ADMITTED)? No Normal [facility] Comment on above: Performed By: #### C OV19 #### [place] [address] [facility] [place] [address] ICU? No Normal [facility] Comment on above: Performed By: #### C OV19 #### [place] [address] [address] [facility] [place] [address] ? No Normal [facility] Comment on above: Performed By: #### C OV19 #### [place] [address] [facility] [place] [address] RESIDENT IN CONGREGATE CARE SETTING? No Normal [facility] Comment on above: Performed By: #### C OV19 #### [facility] [address] [place] [address] SYMPTOMATIC DEFINED BY CDC? Yes Normal [facility] Comment on above: Performed By: #### C OV19 #### [facility] [address] [place] [address] CORONAVIRUS 2019 BY PCRon Lab Specimen Source Nasal, Nasopharyngeal Normal [facility] Comment on above: Performed By: #### C OV19 #### [facility] [address] [place] [address] CR Knee Complete 4+ Views Le fton 07-30-2020 CR Knee Complete 4+ Views Left Patient Name: ZAINAB GONZALEZ Diagnostic Radiology Exam Date/Time 07/30/2020 13:16:44 EDT Exam CR Knee Complete 4+ Views Left Ordering Physician DO ASKEW JOSHUA D Accession Number [id number] CPT4 Codes 38907 () Reason For Exam lt knee pain Report LEFT KNEE History: Knee pain Findings: Four views of the left knee show no acute fracture, dislocation, bone erosion or periosteal reaction. The medial tibiofemoral and the lateral patellofemoral joint space appears slightly narrowed. IMPRESSION: Slight joint space narrowing. Otherwise unremarkable exam. Report Dictated on Final Dictating Physician: MD TARIQ AHMAD Signed Date and Time: 07/30/2020 1:54 pm Signed by: MD TARIQ AHMAD Transcribed Date and Time: 07/30/2020 1:55 Normal [facility] CR Knee Standing Bilateralon 07-30-2020 CR Knee Standing Bilateral Patient Name: ZAINAB GONZALEZ Diagnostic Radiology Exam Date/Time 07/30/2020 13:16:44 EDT Exam CR Knee Standing AP Bilateral Ordering Physician DO ASKEW JOSHUA D Accession Number [id number] CPT4 Codes 36563 () Reason For Exam lt knee pain Report FRONTAL WEIGHT-BEARING VIEW OF BOTH KNEES History: Knee pain Findings: Frontal weight-bearing view of both knees show unremarkable bone density. The medial tibiofemoral joint space appears slightly narrowed. To the extent visualized, there is no acute fracture, dislocation, or periosteal reaction. IMPRESSION: Slight joint space narrowing. Report Dictated on Final Dictating Physician: MD TARIQ AHMAD Signed Date and Time: 07/30/2020 1:56 pm Signed by: MD TARIQ AHMAD Transcribed Date and Time: 07/30/2020 1:57 Normal [facility] XR KNEE BILATERAL STANDINGon 07-30-2020 Patient Name: ZAINAB GONZALEZ ---Diagnostic Radiology--- Exam Date/Time 07/30/2020 13:16:44 EDT Exam CR Knee Standing AP Bilateral Ordering Physician DO ASKEW JOSHUA D Accession Number [id number] CPT4 Codes 80897 () Reason For Exam lt knee pain Report FRONTAL WEIGHT-BEARING VIEW OF BOTH KNEES History: Knee pain Findings: Frontal weight-bearing view of both knees show unremarkable bone density. The medial tibiofemoral joint space appears slightly narrowed. To the extent visualized, there is no acute fracture, dislocation, or periosteal reaction. IMPRESSION: Slight joint space narrowing. Report Dictated on --- Final --- Dictating Physician: MD TARIQ AHMAD Signed Date and Time: 07/30/2020 1:56 pm Signed by: MD TARIQ AHMAD Transcribed Date and Time: 07/30/2020 1:57 [facility]- MD, [place], [facility] Incoming Radiology Results From [facility] - 07/30/2020 1:57 PM EDT Patient Name: ZAINAB GONZALEZ ---Diagnostic Radiology--- Exam Date/Time 07/30/2020 13:16:44 EDT Exam CR Knee Standing AP Bilateral Ordering Physician DO ASKEW JOSHUA D Accession Number [id number] CPT4 Codes 35638 () Reason For Exam lt knee pain Report FRONTAL WEIGHT-BEARING VIEW OF BOTH KNEES History: Knee pain Findings: Frontal weight-bearing view of both knees show unremarkable bone density. The medial tibiofemoral joint space appears slightly narrowed. To the extent visualized, there is no acute fracture, dislocation, or periosteal reaction. IMPRESSION: Slight joint space narrowing. Report Dictated on --- Final --- Dictating Physician: MD TARIQ AHMAD Signed Date and Time: 07/30/2020 1:56 pm Signed by: MD TARIQ AHMAD Transcribed Date and Time: 07/30/2020 1:57 [place], [place] XR KNEE LEFT (MIN 4 VIEWS)on 07-30-2020 Patient Name: ZAINAB GOZNALEZ ---Diagnostic Radiology--- Exam Date/Time 07/30/2020 13:16:44 EDT Exam CR Knee Complete 4+ Views Left Ordering Physician DO ASKEW JOSHUA D Accession Number [id number] CPT4 Codes 69355 () Reason For Exam lt knee pain Report LEFT KNEE History: Knee pain Findings: Four views of the left knee show no acute fracture, dislocation, bone erosion or periosteal reaction. The medial tibiofemoral and the lateral patellofemoral joint space appears slightly narrowed. IMPRESSION: Slight joint space narrowing. Otherwise unremarkable exam. Report Dictated on --- Final --- Dictating Physician: MD TARIQ AHMAD Signed Date and Time: 07/30/2020 1:54 pm Signed by: MD TARIQ AHMAD Transcribed Date and Time: 07/30/2020 1:55 [place], [facility] Incoming Radiology Results From [facility] - 07/30/2020 1:55 PM EDT Patient Name: ZAINAB GONZALEZ ---Diagnostic Radiology--- Exam Date/Time 07/30/2020 13:16:44 EDT Exam CR Knee Complete 4+ Views Left Ordering Physician DO ASKEW JOSHUA D Accession Number [id number] CPT4 Codes 76917 () Reason For Exam lt knee pain Report LEFT KNEE History: Knee pain Findings: Four views of the left knee show no acute fracture, dislocation, bone erosion or periosteal reaction. The medial tibiofemoral and the lateral patellofemoral joint space appears slightly narrowed. IMPRESSION: Slight joint space narrowing. Otherwise unremarkable exam. Report Dictated on --- Final --- Dictating Physician: MD TARIQ AHMAD Signed Date and Time: 07/30/2020 1:54 pm Signed by: MD TARIQ AHMAD Transcribed Date and Time: 07/30/2020 1:55 [place], [place] CBCon 09-21-2019 Erythrocyte distribution width (RBC) [Ratio] 12.3 % 11.5 - 14.5 % [place] Hematocrit (Bld) [Volume fraction] 34.1 % Low 35 - 47 % [place] Hemoglobin (Bld) [Mass/Vol] 12.0 g/dL 11.7 - 16 g/dL [place] Interpretation and review of laboratory results Abnormal [place] MCH (RBC) [Entitic mass] 31.3 pg 26 - 34 pg [place] MCHC (RBC) [Mass/Vol] 35.2 % 32 - 36 % [place], [place] MCV (RBC) [Entitic vol] 89.0 fL 79 - 98 fL [place] Platelet mean volume (Bld) [Entitic vol] 9.0 fL 7.4 - 10.4 fL [place], [place] Platelets (Bld) [#/Vol] 245 10*3/uL 140 - 440 10*3/uL [place] RBC (Bld) [#/Vol] 3.83 10*6/uL 3.8 - 5.2 10*6/uL [place] WBC (Bld) [#/Vol] 10.1 10*3/uL 3.6 - 10.7 10*3/uL [place] [facility], [address] [place] [address] [place], [place] Hemogramon 09-21-2019 Erythrocyte distribution width (RBC) [Ratio] 12.3 % Normal 11.5-14.5 [facility] Comment on above: Performed By: #### H EMOG #### [place] [address] [address] [place], [place] Hematocrit (Bld) [Volume fraction] 34.1 % Low 35.0-47.0 [facility] Comment on above: Performed By: #### H EMOG #### [place] [address] [address] [place], [place] Hemoglobin (Bld) [Mass/Vol] 12.0 g/dL Normal 11.7-16.0 [facility] Comment on above: Performed By: #### H EMOG #### [place] [address] [address] [place], [place] MCH (RBC) [Entitic mass] 31.3 pg Normal 26.0-34.0 [facility] Comment on above: Performed By: #### H EMOG #### [place] [address] [address] [place], [place] MCHC (RBC) [Mass/Vol] 35.2 % Normal 32.0-36.0 [facility] Comment on above: Performed By: #### H EMOG #### [address] [place], [place] MCV (RBC) [Entitic vol] 89.0 fL Normal 79.0-98.0 [facility] Comment on above: Performed By: #### H EMOG #### [place] [address] [address] [place], [place] Platelet mean volume (Bld) [Entitic vol] 9.0 fL Normal 7.4-10.4 [facility] Comment on above: Performed By: #### H EMOG #### [address] [place], [place] Platelets (Bld) [#/Vol] 245 10*3/uL Normal 140-440 [facility] Comment on above: Performed By: #### H EMOG #### [place] [address] [address] [place], [place] RBC (Bld) [#/Vol] 3.83 10*6/uL Normal 3.80-5.20 [facility] Comment on above: Performed By: #### H EMOG #### [place] [address] [place] [address] WBC (Bld) [#/Vol] 10.1 10*3/uL Normal 3.6-10.7 [facility] Comment on above: Performed By: #### H EMOG #### [facility] [address] [place] [address] TS GELon 09-21-2019 TS GEL ABO Group: A Rh, Gel: POS Antibody Screen Gel: NEG Normal [facility] Comment on above: Performed By: #### T SGL #### [place] [address] [place] [address] [facility] TYPE AND SCREENon 09-21-2019 Sodium [Moles/Vol] Negative [place] Comment on above: Test Performed by [facility], [address] [place] [address] Sodium [Moles/Vol] Positive [place] Comment on above: Test Performed by [facility], [address] [place] [address] Sodium [Moles/Vol] A [place] Test Performed by [facility], [address] [place] [address] [place] CBCon 07-05-2019 Erythrocyte distribution width (RBC) [Ratio] 12.8 % 11.5 - 14.5 % [place] Hematocrit (Bld) [Volume fraction] 33.5 % Low 35 - 47 % [place] Hemoglobin (Bld) [Mass/Vol] 11.7 g/dL 11.7 - 16 g/dL [place] Interpretation and review of laboratory results Abnormal [place] MCH (RBC) [Entitic mass] 32.3 pg 26 - 34 pg [place] MCHC (RBC) [Mass/Vol] 35.0 % 32 - 36 % [place] MCV (RBC) [Entitic vol] 92.1 fL 79 - 98 fL [place] Platelet mean volume (Bld) [Entitic vol] 8.1 fL 7.4 - 10.4 fL [place], [place] Platelets (Bld) [#/Vol] 256 10*3/uL 140 - 440 10*3/uL [facility], [place] RBC (Bld) [#/Vol] 3.63 10*6/uL Low 3.8 - 5.2 10*6/uL [facility], [place] WBC (Bld) [#/Vol] 10.7 10*3/uL 3.6 - 10.7 10*3/uL [place] Test Performed by [facility], [address] , [address] Glucose tolerance, 1 houron 07-05-2019 Glucose [Mass/Vol] 119 mg/dL <140 [place] Test Performed by [facility], [address] [place] , [address] Surgical Pathologyon 019 Surgical Pathology [id number] [facility] PATHOLOGY AND LABORATORY MEDICINE [address] [place], [place] [id number] FINAL SURGICAL PATHOLOGY REPORT NAME: ZAINAB GONZALEZ : 1990 27 Y F BILLING NO.: [id number] LOCATION: 1XEO PROCEDURE 11/16/2018 DATE: SURGEON: ALYSSIA CAST MD RECEIVED 11/16/2018 DATE: ATTENDING: ALYSSIA CAST MD REPORT DATE: 11/17/2018 COPIES TO: DIAGNOSIS: A. LEFT COLON BIOPSY - FRAGMENT OF COLONIC MUCOSA WITH NO SIGNIFICANT HISTOPATHOLOGIC CHANGES B. RECTOSIGMOID, BIOPSY - CHRONIC ACTIVE COLITIS COMMENT: There is marked active colitis with crypt abscesses and mild architectural distortion. Granulomas are not identified. Dysplasia is not identified. The differential diagnosis of this pattern of injury most prominently includes diverticular-associa moy colitis and inflammatory bowel disease, among others. IVN/0RW Signature> S JOSÉ SIMS M.D. CLINICAL INFORMATION: History of colitis SPECIMEN: (A) COLON BIOPSY (B) COLON BIOPSY GROSS DESCRIPTION: A. Left colon biopsy Received in formalin is a segment of braxton tissue measuring 0.4 cm. Submitted in toto. (1 ns, 1) B. Rectosigmoid Received in formalin are multiple segments of braxton tissue aggregating to 0.4 x 0.4 cm. The specimen is entirely submitted in a single cassette. (bits ns, 1) [id number] Disclaimer: The following statement applies to all immunohistochemistry , in situ hybridization, molecular studies, and immunofluorescence testing. The use of one or more reagents in the above tests is regulated as an analyte specific reagent (ASR). These tests were developed and their performance characteristics determined by the clinical laboratories of [facility]. They have not been cleared by the US Food and Drug Administration (FDA). The FDA has determined that such clearance or approval is not necessary. All the above immunostains were performed on paraffin embedded tissue. Appropriate positive and negative controls (where applicable) were run in parallel with the patient's specimen; these controls showed expected staining pattern, with acceptable intensity of staining. Immunohistochemical assays have not been validated on decalcified tissues. Results should be interpreted with caution given the raised possibility of false negativity on decalcified specimens. Professional Performing Location: [address] [address]. DEPARTMENT OF PATHOLOGY AND LABORATORY MEDICINE [place], [place] [address] Normal [facility] Vital Signs Date Time Vital Sign Value Performing Clinician Facility 04-26-2025 09:37-0400 Body height 160.02 cm Tiara RYANC Work Phone: [facility] 04-26-2025 09:37-0400 Body mass index (BMI) [Ratio] 25.2 kg/m2 Tiara John NP-C Work Phone: [facility] 04-26-2025 09:37-0400 Body temperature 98.1 [degF] Tiara John NP-C Work Phone: [facility] 04-26-2025 09:37-0400 Body weight 64.52 kg Tiara Jonh NP-C Work Phone: [facility] 04-26-2025 09:37-0400 Diastolic blood pressure 75 mm[Hg] Tiara John NP-C Work Phone: [facility] 04-26-2025 09:37-0400 Heart rate 76 /min Tiara John NP-C Work Phone: [facility] 04-26-2025 09:37-0400 Respiratory rate 16 /min Tiara John NP-C Work Phone: [facility] 04-26-2025 09:37-0400 SaO2% (BldA) [Mass fraction] 98 % Tiara John NP-C Work Phone: [facility] 04-26-2025 09:37-0400 Systolic blood pressure 114 mm[Hg] Tiara John NP-C Work Phone: [facility] 08-31-2024 10:28-0500 Diastolic blood pressure 69 mm[Hg] Alyssia Cast MD Work Phone: [facility] [employer] 08-31-2024 10:28-0500 Heart rate 80 /min Alyssia Cast MD Work Phone: [facility] [employer] 08-31-2024 10:28-0500 Respiratory rate 18 /min Alyssia Cast MD Work Phone: [facility] [employer] 08-31-2024 10:28-0500 SaO2% (BldA) [Mass fraction] 100 % Alyssia Cast MD Work Phone: [facility] [employer] 08-31-2024 10:28-0500 Systolic blood pressure 97 mm[Hg] Alyssia Cast MD Work Phone: [facility] [employer] 08-31-2024 09:30-0500 Body height 160 cm Alyssia Cast MD Work Phone: [facility] [employer] 08-31-2024 09:30-0500 Body mass index (BMI) [Ratio] 23.03 kg/m2 Alyssia Cast MD Work Phone: [facility] [employer] 08-31-2024 09:30-0500 Body temperature 97.3 [degF] Alyssia Cast MD Work Phone: [facility] [employer] 08-31-2024 09:30-0500 Body weight 58.97 kg Alyssia Cast MD Work Phone: [facility] [employer] 08-09-2024 12:35-0400 Body height 160 cm Arabella Ryan MD Work Phone: [facility] [employer] 08-09-2024 12:35-0400 Body mass index (BMI) [Ratio] 22.32 kg/m2 Arabella Ryan MD Work Phone: [facility] [employer] 08-09-2024 12:35-0400 Body weight 57.15 kg Arabella Ryan MD Work Phone: [facility] [employer] 08-09-2024 12:35-0400 Diastolic blood pressure 60 mm[Hg] Arabella Ryan MD Work Phone: [facility] [employer] 08-09-2024 12:35-0400 Systolic blood pressure 110 mm[Hg] Arabella Ryan MD Work Phone: [facility] [employer] 05-10-2023 12:56-0400 Body height 160 cm Gopi Trinidad MD Work Phone: [facility] [employer] 05-10-2023 12:56-0400 Body mass index (BMI) [Ratio] 22.32 kg/m2 Gopi Trinidad MD Work Phone: [facility] [employer] 05-10-2023 12:56-0400 Body temperature 98.01 [degF] Gopi Trinidad MD Work Phone: [facility] [employer] 05-10-2023 12:56-0400 Body weight 57.15 kg Gopi Trinidad MD Work Phone: [facility] [employer] 05-10-2023 12:56-0400 Diastolic blood pressure 70 mm[Hg] Gopi Trinidad MD Work Phone: [facility] [employer] 05-10-2023 12:56-0400 Heart rate 89 /min Gopi Trinidad MD Work Phone: [facility] [employer] 05-10-2023 12:56-0400 Systolic blood pressure 105 mm[Hg] Gopi Trinidad MD Work Phone: [facility] [employer] 04-12-2023 09:43-0400 Body height 160 cm Arabella Ryan MD Work Phone: [facility] [employer] 04-12-2023 09:43-0400 Body mass index (BMI) [Ratio] 22.5 kg/m2 Arabella Ryan MD Work Phone: [facility] [employer] 04-12-2023 09:43-0400 Body weight 57.61 kg Arabella Ryan MD Work Phone: [facility] [employer] 04-12-2023 09:43-0400 Diastolic blood pressure 69 mm[Hg] Arabella Ryan MD Work Phone: [facility] [employer] 04-12-2023 09:43-0400 Heart rate 71 /min Arabella Ryan MD Work Phone: [facility] 04-12-2023 09:43-0400 Systolic blood pressure 107 mm[Hg] Arabella Ryan MD Work Phone: [facility] 09-23-2019 08:59-0500 Body Temperature 98.2 [degF] [facility], [place] 09-23-2019 08:59-0500 BP Diastolic 82 mm[Hg] [facility] , [place] 09-23-2019 08:59-0500 BP Systolic 119 mm[Hg] [facility] , [place] 09-23-2019 08:59-0500 Pulse (Heart Rate) 107 /min [facility], [place] 09-23-2019 08:59-0500 Pulse Oximetry 96 % [facility] , [place] 09-23-2019 08:59-0500 Respiratory Rate 16 /min [facility], [place] 09-21-2019 17:00-0500 BMI (Body Mass Index) 29.58 kg/m2 [facility], [place] 09-21-2019 17:00-0500 Body weight 75.75 kg [facility] , [place] 09-21-2019 17:00-0500 Height 160 cm [place], [place] Encounters Encounter Date Encounter Type Care Provider Facility Start: 04-26-2025 End: 04-26-2025 ambulatory Tiara CHAHAL Work Phone: -[facility] Start: 04-26-2025 End: 04-26-2025 Patient encounter procedure Tiara CHAHAL [facility] Work Phone: Start: 10-24-2024 End: 10-24-2024 ambulatory Tiara John Facility:[facility] Start: 09-20-2024 End: 10-03-2024 Telephone encounter Alyssia Cast MD Work Phone: [facility] - [place] Comment on above: Med Refill (mesalami ne ER (Apriso) 0.375 g 24 hr capsule) Appointment Request Start: 08-31-2024 End: 08-31-2024 ambulatory [facility] Start: 08-31-2024 End: 08-31-2024 Subsequent hospital visit by physician Alyssia Cast MD Work Phone: [facility] [address] [facility] Comment on above: Ulcerative proctitis with complication (HCC) Start: 08-09-2024 End: 08-09-2024 ambulatory [facility] Start: 08-09-2024 End: 08-09-2024 Encounter for gynecological examination (general) (routine) without abnormal findings ARABELLA RYAN [facility] Start: 08-09-2024 End: 08-09-2024 Patient encounter procedure Arabella Ryan MD Work Phone: [facility] Start: 08-09-2024 End: 08-09-2024 Periodic preventive med est patient 18-39 yrs Arabella Ryan MD Work Phone: [facility] Obstetrics [facility] Gyne[facility] [place] Comment on above: Well woman exam with routine gynecological exam; Cervical cancer screening Start: 12-02-2023 End: 12-02-2023 Office outpatient visit 25 minutes Alyssia Cast MD Work Phone: [facility] Comment on above: Ulcerative proctitis with complication (HCC) (Primary Dx) Start: 12-02-2023 End: 12-02-2023 ambulatory ALYSSIA CAST [facility] Start: 09-06-2023 Refill Alyssia rodarte MD Work Phone: [facility] Comment on above: Med Refill Start: 07-19-2023 ambulatory [facility] Start: 07-19-2023 Patient encounter procedure [facility] Start: 05-10-2023 End: 05-10-2023 Office outpatient new 30 minutes Gopi Trinidad MD Work Phone: [facility] Comment on above: Hemorrhoids, unspeci fied hemorrhoid type (Primary Dx) Start: 04-12-2023 End: 04-12-2023 Patient encounter status Arabella Ryan MD Work Phone: [facility] [employer] Work Phone: Start: 04-12-2023 End: 04-12-2023 Periodic preventive med est patient 18-39 yrs Arabella Ryan MD Work Phone: [facility] Comment on above: Encounter for gyneco logical examination without abnormal finding (Primary Dx); Hemorrhoids, unspecified hemorrhoid type Start: 11-12-2022 End: 11-12-2022 Office outpatient visit 25 minutes Alyssia Cast MD Work Phone: [facility] Comment on above: Ulcerative proctitis with complication (HCC) (Primary Dx) Start: 05-20-2021 End: 05-20-2021 Subsequent hospital visit by physician Nydia Cee MD Work Phone: [facility] Comment on above: care, antep artum Start: 02-20-2021 End: 02-20-2021 Subsequent hospital visit by physician Deanne WALTON Work Phone: [facility] Comment on above: History of gestation al diabetes in prior , currently Start: 12-19-2020 End: 12-19-2020 Subsequent hospital visit by physician Olga Hu Work Phone: [facility] Comment on above: with incon clusive viability, single or unspecified fetus Start: 07-30-2020 End: 07-30-2020 Subsequent hospital visit by physician Miky Askew Work Phone: [facility] Start: 09-21-2019 End: 09-23-2019 Evaluation and management of inpatient Nydia Cee Work Phone: [facility] Comment on above: Uterine size-date di screpancy in third trimester; Supervision of high risk , antepartum; Rubella non-immune status, antepartum; History of gestational diabetes mellitus (GDM) in prior , currently in first trimester; Chronic ulcerative rectosigmoiditis with complication (HCC) Start: 07-05-2019 End: 07-05-2019 Subsequent hospital visit by physician Arabella Ryan Work Phone: [facility] Comment on above: History of gestation al diabetes mellitus (GDM) in prior , currently in first trimester Procedures Date Procedure Procedure Detail Performing Clinician Start: 08-09-2024 Microscopic observat ion [Identifier] in Cervix by Cyto stain Alyssia Cast MD Work Phone: Start: 12-02-2023 Follow-up visit Follow-up ALYSSIA PARK Start: 04-12-2023 Microscopic observat ion [Identifier] in Cervix by Cyto stain Gopi Trinidad MD Work Phone: Start: 02-04-2022 Microscopic observat ion [Identifier] in Cervix by Cyto stain Alyssia Cast MD Work Phone: Start: 05-20-2021 Blood count complete automated Nydia Cee MD Work Phone: Start: 03-01-2021 Blood count hemoglobin Comment on above: Performed By: #### G C1H, HEMOG #### [facility] [address] [place] [address] Start: 02-20-2021 Antibody screen Charles ie Sedlak [employer] - CNM Work Phone: Start: 02-20-2021 Antibody screen rbc each serum technique Deanne Sedlak [employer] - CNM Work Phone: Start: 02-20-2021 Blood count complete automated Deanne Sedlak [employer] - CNM Work Phone: Start: 02-20-2021 RUBELLA IMMUNE Jahaira e Sedlak [employer] - CNM Work Phone: Start: 12-19-2020 Gonadotropin chorion ic quantitative Olga Hu Work Phone: Start: 09-04-2020 Follow-up visit Start: 07-30-2020 Radiologic exam both knees standing anteropost Miky Askew Work Phone: Start: 07-30-2020 Radiologic exam knee complete 4/more views Miky Askew Work Phone: Start: 09-21-2019 Blood count complete automated Vincenzo Israel Work Phone: Start: 09-21-2019 Blood typing serolog ic abo Vincenzo Israel Work Phone: Start: 07-05-2019 Blood count complete automated Arabella Ryan Work Phone: Start: 07-05-[address] gtt 3 specimens Arabella Ryan Work Phone: Plan of Treatment Date Care Activity Detail Author Start: 2066 RSV Immunization for Adults (1 - 1-dose 75+ series) RSV Immunization for Adults (1 - 1-dose 75+ series) [facility] Start: 2051 RSV Immunization aged 60 or older (1 - 1-dose 60+ series) RSV Immunization aged 60 or older (1 - 1-dose 60+ series) [facility] Start: 2041 Zoster Vaccines (1 of 2) Zoster Vaccines (1 of 2) [facility] Start: 07-31-2031 DTaP/Tdap/Td Vaccines (4 - Td or Tdap) DTaP/Tdap/Td Vaccines (4 - Td or Tdap) [facility] Start: 08-10-2029 DTaP/Tdap/Td vaccine (3 - Td or Tdap) DTaP/Tdap/Td vaccine (3 - Td or Tdap) [facility] Work Phone: Start: 08-10-2029 DTaP/Tdap/Td vaccine (3 - Td) DTaP/Tdap/Td vaccine (3 - Td) [place] Start: 08-09-2027 Screening for malignant neoplasm of cervix [facility] Start: 06-18-2026 DTaP/Tdap/Td vaccine (2 - Td) DTaP/Tdap/Td vaccine (2 - Td) [place] Start: 04-12-2026 Screening for malignant neoplasm of cervix [facility] Start: 08-22-2025 End: 08-22-2025 Patient encounter procedure 08/22/2025 12:30 PM EST Office Visit [facility] Obstetrics and Gynecology [facility] [address] [place] [address] [place] [address] Arabella Ryan MD [address] [place], [place] [id number] [facility]etric[facility] Gynecology [facility] Start: 02-04-2025 Screening for malignant neoplasm of cervix [facility] Start: 08-31-2024 End: 08-31-2024 Admission to same day surgery center 08/31/2024 10:30 AM EST - 08/31/2024 11:30 AM EST Surgery [facility] [address] [place] [address] Alyssia Cast MD [address] [facility] [address] [place] [phone] COLONOSCOPY [16451 (CPT )] [facility] [address] [facility] Comment on above: COLONOSCOPY [56833 (CPT )] Start: 08-31-2024 Subsequent hospital visit by physician 08/31/2024 10:30 AM EST Hospital Encounter [facility] [address] [address] [place] [address] Alyssia Cast MD [address] [facility] [address] [address] [place] [address] [facility] [address] [facility] Start: 08-31-2024 End: 08-31-2024 Colonoscopy flx dx w/collj spec when pfrmd [facility] Start: 06-18-2024 COVID-19 Vaccine ( season) COVID-19 Vaccine ( season) [facility] Start: 06-18-2024 Influenza vaccination Influenza Vaccine (#1) [facility] Start: 04-24-2024 End: 04-24-2024 Patient encounter procedure 04/24/2024 9:00 AM EDT Office Visit [facility] [address] [place] [address] [place] [phone] Arabella Ryan MD [address] [place] [address] [facility] Start: 04-14-2024 End: 04-14-2024 Admission to same day surgery center 04/14/2024 10:30 AM EDT - 04/14/2024 11:00 AM EDT Surgery [facility] [address] [place] [address] Alyssia Cast MD [address] [place] [phone] COLONOSCOPY [00701 (CPT )] [facility] [address] Comment on above: COLONOSCOPY [93654 (CPT )] Start: 04-14-2024 End: 04-14-2024 Colonoscopy flx dx w/collj spec when pfrmd COLONOSCOPY Ulcerative proctitis with complication (HCC) 04/14/2024 10:30 AM EDT [facility] Start: 04-14-2024 Subsequent hospital visit by physician 04/14/2024 10:30 AM EDT Hospital Encounter [facility] [address] [place] [phone] Alyssia Cast MD [address] [place] [address] [facility] [address] Start: 12-02-2023 End: 12-02-2023 Telemedicine consultation with patient 12/02/2023 1:00 PM EST Telemedicine [facility] [address] [place] [phone] Alyssia Cast MD [address] [place] [phone] [facility] Start: 09-01-2023 End: 09-01-2023 Patient encounter procedure 09/01/2023 10:00 AM EST Office Visit [facility] [address] [place] [phone] Gopi Trinidad MD [address] [place] [address] [facility] Start: 06-23-2023 End: 06-23-2023 Patient encounter procedure 06/23/2023 10:00 AM EDT Office Visit [facility] [address] [facility] [address] [place] [phone] Gopi Trinidad MD [address] [facility] [address] [place] [address] [facility] Start: 06-18-2023 COVID-19 Vaccine () COVID-19 Vaccine () [facility] Start: 06-18-2023 Influenza vaccination Influenza Vaccine (#1) [facility] Start: 05-10-2023 End: 05-10-2024 Anoscopy Anoscopy Procedures Routine Hemorrhoids, unspecified hemorrhoid type Expected: 05/10/2023 (Approximate), Expires: 05/10/2024 [facility] Work Phone: Comment on above: Expected: 05/10/2023 (Approximate), Expi res: 05/10/2024 Start: 05-10-2023 End: 05-10-2023 Patient encounter procedure 05/10/2023 1:00 PM EDT Office Visit [facility] [address] [facility] [address] [place] [phone] Gopi Trinidad MD [address] [facility] [address] [place] [address] [facility] Start: 03-29-2023 Screening for malignant neoplasm of cervix Cervical cancer screen [place] Start: 02-10-2023 End: 02-10-2023 Patient encounter procedure 02/10/2023 Office Visit Obstetrics and Gynecology Arabella Ryan MD [address] [place] [address] [facility] Start: 2021 Screening for malignant neoplasm of cervix HPV/Cotest [facility] Start: 06-18-2021 Influenza vaccination Flu vaccine (#1) [facility] Work Phone: Start: 06-11-2021 End: 06-11-2021 Patient encounter procedure 06/11/2021 Routine Obstetrics and Gynecology Arabella Ryan MD [address] [place], [place] [phone] [facility] Start: 03-20-2021 COVID-19 Vaccine (3 - Booster for Moderna series) COVID-19 Vaccine (3 - Booster for Moderna series) [facility] Start: 03-20-2021 COVID-19 Vaccine (3 - Moderna series) COVID-19 Vaccine (3 - Moderna series) [facility] Start: 02-28-2021 End: 02-28-2021 Patient encounter procedure 02/28/2021 Routine Obstetrics and Gynecology Warren Castillo MD [address] [place] [address] [phone] [facility] Start: 12-30-2020 End: 12-30-2020 Procedure visit [facility] Start: 06-18-2020 Influenza vaccination Flu vaccine (#1) [place] Start: 02-27-2020 Cervical cancer screen Cervical cancer screen [place] Start: 10-21-2019 Varicella vaccination [facility] Start: 07-14-2019 End: 07-14-2019 Routine 07/14/2019 Routine Obstetrics and Gynecology Sue Nichols MD [address] [place] [phone] [facility] AEROPHYSICIST Start: 06-18-2019 Influenza vaccination Flu vaccine (#1) [place] Start: 2010 Hepatitis B Vaccines (1 of 3 - 19+ 3-dose series) Hepatitis B Vaccines (1 of 3 - 19+ 3-dose series) [facility] [employer] Start: 2004 Varicella Vaccine (1 of 2 - 13+ 2-dose series) Varicella Vaccine (1 of 2 - 13+ 2-dose series) [place] Start: 2003 Depression Screening Depression Screening [facility] Start: 1992 Varicella vaccine (1 of 2 - 2-dose childhood series) Varicella vaccine (1 of 2 - 2-dose childhood series) [place] Start: 1991 Hepatitis B Vaccines (1 of 3 - 3-dose series) Hepatitis B Vaccines (1 of 3 - 3-dose series) [facility] Cytology Cervical or vaginal smear or scraping study Pap Smear Pathology and Cytology Routine Encounter for gynecological examination without abnormal finding 04/12/2023 10:05 AM EDT [facility] Cytology Cervical or vaginal smear or scraping study Pap Smear Pathology and Cytology Routine Well woman exam with routine gynecological exam Cervical cancer screening 08/09/2024 12:54 PM EDT [employer] Work Phone: End: 02-20-2021 Hemoglobin Fractionation Profile Hemoglobin Fractionation Profile Lab Routine History of gestational diabetes in prior , currently 1 Occurrences starting 02/20/2021 until 02/20/2021 [employer] Work Phone: Comment on above: 1 Occurrences starting 02/20/2021 until 02/20/2021 Hemoglobin Fractionation Profile Hemoglobin Fractionation Profile Lab Routine History of gestational diabetes in prior , currently 02/20/2021 3:11 PM EDT [facility] Work Phone: End: 02-20-2021 Hepatitis B Surface Antigen Hepatitis B Surface Antigen Lab Routine History of gestational diabetes in prior , currently 1 Occurrences starting 02/20/2021 until 02/20/2021 [facility] Work Phone: Comment on above: 1 Occurrences starting 02/20/2021 until 02/20/2021 Hepatitis B Surface Antigen Hepatitis B Surface Antigen Lab Routine History of gestational diabetes in prior , currently 02/20/2021 3:11 PM EDT [facility] Work Phone: End: 02-20-2021 Hepatitis C Antibody Hepatitis C Antibody Lab Routine History of gestational diabetes in prior , currently 1 Occurrences starting 02/20/2021 until 02/20/2021 [employer] Work Phone: Comment on above: 1 Occurrences starting 02/20/2021 until 02/20/2021 Hepatitis C Antibody Hepatitis C Antibody Lab Routine History of gestational diabetes in prior , currently 02/20/2021 3:11 PM EDT [facility] Work Phone: End: 02-20-2021 HIV Screen HIV Screen Lab Routine History of gestational diabetes in prior , currently 1 Occurrences starting 02/20/2021 until 02/20/2021 [employer] Work Phone: Comment on above: 1 Occurrences starting 02/20/2021 until 02/20/2021 HIV Screen HIV Screen Lab R outine History of gestational diabetes in prior , currently 02/20/2021 3:11 PM EDT [employer] Work Phone: End: 02-20-2021 RPR with FTA Relex RPR with FTA Relex Lab Routine History of gestational diabetes in prior , currently 1 Occurrences starting 02/20/2021 until 02/20/2021 [employer] Work Phone: Comment on above: 1 Occurrences starting 02/20/2021 until 02/20/2021 RPR with FTA Relex RPR with FTA Relex Lab Routine History of gestational diabetes in prior , currently 02/20/2021 3:11 PM EDT [employer] Work Phone: Tissue exam [facility] [employer] Work Phone: Comment on above: Release Upon Ordering for 1 Occurrences starting 08/31/2024 Immunizations Immunization Date Immunization Notes Care Provider [facility] 07-17-2022 influenza virus vaccine, unspecified formulation Gopi Trinidad MD Work Phone: [facility] [employer] 07-31-2021 tetanus toxoid, reduced diphtheria toxoid, and acellular pertussis vaccine, adsorbed Alyssia Cast MD Work Phone: [facility] [employer] 09-23-2019 measles, mumps [facility] rubella [facility] 09-21-2019 diphtheria, tetanus toxoids and acellular pertussis vaccine, unspecified formulation [facility], [place] 09-21-2019 measles, mumps and rubella virus vaccine [facility], [place] 06-18-2016 tetanus toxoid, reduced diphtheria toxoid, and acellular pertussis vaccine, adsorbed Arabella Ryan [facility] NEGATED: Highlighted row has not occurred!09-23-2019 tetanus toxoid, reduced diphtheria toxoid, and acellular pertussis vaccine, adsorbed [facility], [place] Comment on above: Deferred: - pt hernando natarajan received Payers Date Payer Category Payer Self-pay 2023 [employer] Blue [facility] Care - [facility]TH BLUE CROSS [id number] 2023 Unknown [id number] 2022 Unknown [id number] 2018 Private Health Insurance [facility] PLU xxxxxxxxx 2018-Present [phone] [address] [place] [address] xxxxxxxxx [id number] 2018 Private Health Insurance [facility] PLU [id number] 2018-Present [phone] [address] [place] [address] [id number] Private Health Insurance 111 [id number] Unknown [id number] Social History Date Type Detail Facility Start: 06-28-2019 End: 10-24-2024 Tobacco smoking status NHIS Never smoker [facility] [place] Start: 06-28-2019 End: 08-09-2024 Alcohol intake No [facility] Start: 12-31-2018 [facility] [place] [place] Start: 1990 Sex Assigned At Not on file M [facility], [place] Start: 03-29-2020 End: 05-08-2021 Tobacco use and exposure [facility] [place] Start: 03-29-2020 End: 09-01-2024 Alcohol intake Current non-drinker of alcohol (finding) [facility] [place] Start: 05-08-2021 End: 08-09-2024 Alcohol intake [facility] Work Phone: Start: 11-01-2022 End: 05-10-2023 Exposure to SARS-CoV-2 (event) Not sure [facility] In the past 12 month s, has lack of transportation kept you from medical appointments or from getting medications? No [facility] In the past 12 month s, was there a time when you were not able to pay the mortgage or rent on time? No [facility] Start: 05-18-2022 Sex Female (finding) [facility] [employer] Start: 1990 Sex Assigned At Female [facility] Clinical Notes 11-12-2022 to 11-16-2024 Telephone Encounter - Nisha Coreas MA - 11/16/2024 10:32 AM ESTTelephone Encounter - Nisha Coreas MA - 11/16/2024 10:32 AM ESTTelephone Encounter - Nisha Coreas MA - 10/03/2024 9:04 AM EST Note Date & Type Note Facility 11-16-2024 Telephone encounter Note I called and spoke with patient re: sooner opening for next Wednesday. Patient did let us know she is in process of transferring GI care to a GI closer to her home. She also wanted to cancel upcoming appointment with Dr Cast. Cancelled appointment and removed from waiting list. TY [facility] 11-16-2024 Miscellaneous Notes I called and spoke with patient re: sooner opening for next Wednesday. Patient did let us know she is in process of transferring GI care to a GI closer to her home. She also wanted to cancel upcoming appointment with Dr Cast. Cancelled appointment and removed from waiting list. TY Called and spoke with patient to get her scheduled for follow up with Dr Cast. Patient does have [facility] so will let us know if she needs to transfer care due to [facility] not accepting her insurance. Patient only available [phone] or [phone]. Scheduled for next available appointment in that time, 03/20/[address] Cast. Will also add patient to wait list in case sooner appointment becomes available. Name of Caller: Zainab Contact Reason for Appointment: Zainab called wishing to schedule a colonoscopy follow up appointment. Colonoscopy completed 08/31/2024. Patient advising does not wish to wait until February (next available appointment for [facility]), and patient states prefers virtual or telemedicine visit if possible. Please advise. Office Name: Gastroenterology documented in this encounter [facility] 10-03-2024 Telephone encounter Note Called and spoke with patient to get her scheduled for follow up with Dr Cast. Patient does have [facility] so will let us know if she needs to transfer care due to [facility] not accepting her insurance. Patient only available [phone] or [phone]. Scheduled for next available appointment in that time, 03/20/[address] Cast. Will also add patient to wait list in case sooner appointment becomes available. [facility] 09-21-2024 Telephone encounter Note Medication refilled [facility] 09-21-2024 Miscellaneous Notes Medication refilled Medication name: mesalamine ER (Apriso) 0.375 g 24 hr capsule Medication dosage: 0.375 g (Grams) Monthly quantity needed: 120 How many day supply requestin year Medication route: oral (PO) Medication administration time(s): Take 4 capsules (1.5 g) by mouth daily. Do not crush or chew If taking medication PRN, reason for taking medication: N/A If this is a controlled substance do you receive this or any other controlled medication from any other doctor or facility: N/A Ordering provider: Dr Cast Date of last office visit: 12/02/2023 Date of next office visit: not scheduled Date of last refill: (see medication tab): 09/13/2023 Updated/Validated preferred pharmacy: Yes Patient instructed to contact the pharmacy prior to picking up the medication: Yes documented in this encounter [facility] 09-20-2024 Telephone encounter Note Name of Caller: Zainab Contact Reason for Appointment: Zainab asndhu wishing to schedule a colonoscopy follow up appointment. Colonoscopy completed 08/31/2024. Patient advising does not wish to wait until February (next available appointment for CAC), and patient states prefers virtual or telemedicine visit if possible. Please advise. Office Name: Gastroenterology [facility] [employer] 09-20-2024 Telephone encounter Note Medication name: mesalamine ER (Apriso) 0.375 g 24 hr capsule Medication dosage: 0.375 g (Grams) Monthly quantity needed: 120 How many day supply requestin year Medication route: oral (PO) Medication administration time(s): Take 4 capsules (1.5 g) by mouth daily. Do not crush or chew If taking medication PRN, reason for taking medication: N/A If this is a controlled substance do you receive this or any other controlled medication from any other doctor or facility: N/A Ordering provider: Dr Cast Date of last office visit: 12/02/2023 Date of next office visit: not scheduled Date of last refill: (see medication tab): 09/13/2023 Updated/Validated preferred pharmacy: Yes Patient instructed to contact the pharmacy prior to picking up the medication: Yes [facility] 08-31-2024 Nurse Note Did not reach cecum, patient unable to tolerate with no sedation. Withdrawing scope. [facility] 08-31-2024 Nurse Note Did not reach cecum, patient unable to tolerate with no sedation. Withdrawing scope. documented in this encounter [facility] 08-31-2024 Note Formatting of this n ote might be different from the original. [facility]ab [facility] Procedure Date: 08/31/2024 10:02 AM Gender: Female Date of : 1990 Age: 33 Admit Type: Outpatient Note Status: Finalized Endoscopist: Alyssia Cast MD, [id number] Procedure: Colonoscopy Indications: Determine extent and severity of inflammatory bowel disease Findings: The digital rectal exam was normal. Biopsies were taken with a cold forceps for histology at 50cm, 40cm, 30cm, 20cm, rectum. Internal hemorrhoids were found during retroflexion. The hemorrhoids were small and Grade I (internal hemorrhoids that do not prolapse). Impression: - Biopsies were taken with a cold forceps for histology. - Internal hemorrhoids. Recommendation: - Patient has a contact number available for emergencies. The signs and symptoms of potential delayed complications were discussed with the patient. Return to normal activities tomorrow. Written discharge instructions were provided to the patient. - Await pathology results. - Continue present medications. - Resume previous diet. - High fiber diet. - Return to referring physician as previously scheduled. - Repeat colonoscopy PRN. Referring MD: Miky Askew DO CC Letter to: Miky Askew DO Medicines: Monitored Anesthesia Care Procedure: Pre-Anesthesia Assessment: - Prior to the procedure, a History and Physical was performed, and patient medications and allergies were reviewed. The patient is competent. The risks and benefits of the procedure and the sedation options and risks were discussed with the patient. All questions were answered and informed consent was obtained. Patient identification and proposed procedure were verified by the physician, the nurse and the commercial retoucher in the pre-procedure area in the procedure room. Mental Status Examination: alert and oriented. Respiratory Examination: clear to auscultation. CV Examination: normal. Prophylactic Antibiotics: The patient does not require prophylactic antibiotics. Prior Anticoagulants: The patient has taken no anticoagulant or antiplatelet agents. ASA Grade Assessment: II - A patient with mild systemic disease. After reviewing the risks and benefits, the patient was deemed in satisfactory condition to undergo the procedure. The anesthesia plan was to use no sedation or anesthesia. Immediately prior to administration of medications, the patient was re-assessed for adequacy to receive sedatives. The heart rate, respiratory rate, oxygen saturations, blood pressure, adequacy of pulmonary ventilation, and response to care were monitored throughout the procedure. The physical status of the patient was re-assessed after the procedure. After I obtained informed consent, the scope was passed under direct vision. Throughout the procedure, the patient's blood pressure, pulse, and oxygen saturations were monitored continuously. The Colonoscope was introduced through the anus with the intention of advancing to the cecum. The scope was advanced to the sigmoid colon before the procedure was aborted due to patient discomfort. Medications were not given per pt request for unsedated colonoscopy. The quality of the bowel preparation was adequate. Anatomical landmarks were photographed. The colonoscopy was performed with difficulty due to the patient's discomfort during the procedure, therefore unable to advance to cecum. Complications: No immediate complications. Procedure Code(s): --- Professional --- 85426, 52, Colonoscopy, flexible; with biopsy, single or multiple --- Technical --- 32788, 52, Colonoscopy, flexible; with biopsy, single or multiple Diagnosis Code(s): --- Professional --- K64.0, First degree hemorrhoids K52.3, Indeterminate colitis --- Technical --- K64.0, First degree hemorrhoids K52.3, Indeterminate colitis CPT copyright 2021 [employer]. All rights reserved. The codes documented in this report are preliminary and upon inpatient coder review may be revised to meet current compliance requirements. Attending Participation: I personally performed the entire procedure. Alyssia Cast MD 08/31/2024 10:32:30 AM Number of Addenda: 0 Note Initiated On: 08/31/2024 10:02 AM [facility] 08-31-2024 Note Formatting of this n ote might be different from the original. [facility]ab Gonzalez Procedure Date: 08/31/2024 10:02 AM Gender: Female Date of : 1990 Age: 33 Admit Type: Outpatient Note Status: Finalized Endoscopist: Alyssia Cast MD, [id number] Procedure: Colonoscopy Indications: Determine extent and severity of inflammatory bowel disease Findings: The digital rectal exam was normal. Biopsies were taken with a cold forceps for histology at 50cm, 40cm, 30cm, 20cm, rectum. Internal hemorrhoids were found during retroflexion. The hemorrhoids were small and Grade I (internal hemorrhoids that do not prolapse). Impression: - Biopsies were taken with a cold forceps for histology. - Internal hemorrhoids. Recommendation: - Patient has a contact number available for emergencies. The signs and symptoms of potential delayed complications were discussed with the patient. Return to normal activities tomorrow. Written discharge instructions were provided to the patient. - Await pathology results. - Continue present medications. - Resume previous diet. - High fiber diet. - Return to referring physician as previously scheduled. - Repeat colonoscopy PRN. Referring MD: Miky Askew DO CC Letter to: Miky Askew DO Medicines: Monitored Anesthesia Care Procedure: Pre-Anesthesia Assessment: - Prior to the procedure, a History and Physical was performed, and patient medications and allergies were reviewed. The patient is competent. The risks and benefits of the procedure and the sedation options and risks were discussed with the patient. All questions were answered and informed consent was obtained. Patient identification and proposed procedure were verified by the physician, the nurse and the commercial retoucher in the pre-procedure area in the procedure room. Mental Status Examination: alert and oriented. Respiratory Examination: clear to auscultation. CV Examination: normal. Prophylactic Antibiotics: The patient does not require prophylactic antibiotics. Prior Anticoagulants: The patient has taken no anticoagulant or antiplatelet agents. ASA Grade Assessment: II - A patient with mild systemic disease. After reviewing the risks and benefits, the patient was deemed in satisfactory condition to undergo the procedure. The anesthesia plan was to use no sedation or anesthesia. Immediately prior to administration of medications, the patient was re-assessed for adequacy to receive sedatives. The heart rate, respiratory rate, oxygen saturations, blood pressure, adequacy of pulmonary ventilation, and response to care were monitored throughout the procedure. The physical status of the patient was re-assessed after the procedure. After I obtained informed consent, the scope was passed under direct vision. Throughout the procedure, the patient's blood pressure, pulse, and oxygen saturations were monitored continuously. The Colonoscope was introduced through the anus with the intention of advancing to the cecum. The scope was advanced to the sigmoid colon before the procedure was aborted due to patient discomfort. Medications were not given per pt request for unsedated colonoscopy. The quality of the bowel preparation was adequate. Anatomical landmarks were photographed. The colonoscopy was performed with difficulty due to the patient's discomfort during the procedure, therefore unable to advance to cecum. Complications: No immediate complications. Procedure Code(s): --- Professional --- 21843, 52, Colonoscopy, flexible; with biopsy, single or multiple --- Technical --- 80269, 52, Colonoscopy, flexible; with biopsy, single or multiple Diagnosis Code(s): --- Professional --- K64.0, First degree hemorrhoids K52.3, Indeterminate colitis --- Technical --- K64.0, First degree hemorrhoids K52.3, Indeterminate colitis CPT copyright 2021 [employer]. All rights reserved. The codes documented in this report are preliminary and upon inpatient coder review may be revised to meet current compliance requirements. Attending Participation: I personally performed the entire procedure. Alyssia Cast MD 08/31/2024 10:32:30 AM Number of Addenda: 0 Note Initiated On: 08/31/2024 10:02 AM [facility] 08-31-2024 Note Endoscopy Center- [facility] Patient Name: Zainab Gonzalez Procedure Date: 08/31/2024 10:02 AM Gender: Female Date of : 1990 Age: 33 Admit Type: Outpatient Note Status: Finalized Endoscopist: Alyssia Cast MD, [id number] Procedure: Colonoscopy Indications: Determine extent and severity of inflammatory bowel disease Findings: The digital rectal exam was normal. Biopsies were taken with a cold forceps for histology at 50cm, 40cm, 30cm, 20cm, rectum. Internal hemorrhoids were found during retroflexion. The hemorrhoids were small and Grade I (internal hemorrhoids that do not prolapse). Impression: - Biopsies were taken with a cold forceps for histology. - Internal hemorrhoids. Recommendation: - Patient has a contact number available for emergencies. The signs and symptoms of potential delayed complications were discussed with the patient. Return to normal activities tomorrow. Written discharge instructions were provided to the patient. - Await pathology results. - Continue present medications. - Resume previous diet. - High fiber diet. - Return to referring physician as previously scheduled. - Repeat colonoscopy PRN. Referring MD: Miky Askew DO CC Letter to: Miky Askew DO Medicines: Monitored Anesthesia Care Procedure: Pre-Anesthesia Assessment: - Prior to the procedure, a History and Physical was performed, and patient medications and allergies were reviewed. The patient is competent. The risks and benefits of the procedure and the sedation options and risks were discussed with the patient. All questions were answered and informed consent was obtained. Patient identification and proposed procedure were verified by the physician, the nurse and the commercial retoucher in the pre-procedure area in the procedure room. Mental Status Examination: alert and oriented. Respiratory Examination: clear to auscultation. CV Examination: normal. Prophylactic Antibiotics: The patient does not require prophylactic antibiotics. Prior Anticoagulants: The patient has taken no anticoagulant or antiplatelet agents. ASA Grade Assessment: II - A patient with mild systemic disease. After reviewing the risks and benefits, the patient was deemed in satisfactory condition to undergo the procedure. The anesthesia plan was to use no sedation or anesthesia. Immediately prior to administration of medications, the patient was re-assessed for adequacy to receive sedatives. The heart rate, respiratory rate, oxygen saturations, blood pressure, adequacy of pulmonary ventilation, and response to care were monitored throughout the procedure. The physical status of the patient was re-assessed after the procedure. After I obtained informed consent, the scope was passed under direct vision. Throughout the procedure, the patient's blood pressure, pulse, and oxygen saturations were monitored continuously. The Colonoscope was introduced through the anus with the intention of advancing to the cecum. The scope was advanced to the sigmoid colon before the procedure was aborted due to patient discomfort. Medications were not given per pt request for unsedated colonoscopy. The quality of the bowel preparation was adequate. Anatomical landmarks were photographed. The colonoscopy was performed with difficulty due to the patient's discomfort during the procedure, therefore unable to advance to cecum. Complications: No immediate complications. Procedure Code(s): --- Professional --- 10796, 52, Colonoscopy, flexible; with biopsy, single or multiple --- Technical --- 84896, 52, Colonoscopy, flexible; with biopsy, single or multiple Diagnosis Code(s): --- Professional --- K64.0, First degree hemorrhoids K52.3, Indeterminate colitis --- Technical --- K64.0, First degree hemorrhoids K52.3, Indeterminate colitis CPT copyright 2021 [employer]. All rights reserved. The codes documented in this report are preliminary and upon inpatient coder review may be revised to meet current compliance requirements. Attending Participation: I personally performed the entire procedure. Alyssia Cast MD 08/31/2024 10:32:30 AM Number of Addenda: 0 Note Initiated On: 08/31/2024 10:02 AM [facility] 08-31-2024 Miscellaneous Notes [facility]: Zainab [facility] Procedure Date: 08/31/2024 10:02 AM Gender: Female Date of : 1990 Age: 33 Admit Type: Outpatient Note Status: Finalized Endoscopist: Alyssia Cast MD, [id number] Procedure: Colonoscopy Indications: Determine extent and severity of inflammatory bowel disease Findings: The digital rectal exam was normal. Biopsies were taken with a cold forceps for histology at 50cm, 40cm, 30cm, 20cm, rectum. Internal hemorrhoids were found during retroflexion. The hemorrhoids were small and Grade I (internal hemorrhoids that do not prolapse). Impression: - Biopsies were taken with a cold forceps for histology. - Internal hemorrhoids. Recommendation: - Patient has a contact number available for emergencies. The signs and symptoms of potential delayed complications were discussed with the patient. Return to normal activities tomorrow. Written discharge instructions were provided to the patient. - Await pathology results. - Continue present medications. - Resume previous diet. - High fiber diet. - Return to referring physician as previously scheduled. - Repeat colonoscopy PRN. Referring MD: Miky Askew DO CC Letter to: Miky Askew DO Medicines: Monitored Anesthesia Care Procedure: Pre-Anesthesia Assessment: - Prior to the procedure, a History and Physical was performed, and patient medications and allergies were reviewed. The patient is competent. The risks and benefits of the procedure and the sedation options and risks were discussed with the patient. All questions were answered and informed consent was obtained. Patient identification and proposed procedure were verified by the physician, the nurse and the commercial retoucher in the pre-procedure area in the procedure room. Mental Status Examination: alert and oriented. Respiratory Examination: clear to auscultation. CV Examination: normal. Prophylactic Antibiotics: The patient does not require prophylactic antibiotics. Prior Anticoagulants: The patient has taken no anticoagulant or antiplatelet agents. ASA Grade Assessment: II - A patient with mild systemic disease. After reviewing the risks and benefits, the patient was deemed in satisfactory condition to undergo the procedure. The anesthesia plan was to use no sedation or anesthesia. Immediately prior to administration of medications, the patient was re-assessed for adequacy to receive sedatives. The heart rate, respiratory rate, oxygen saturations, blood pressure, adequacy of pulmonary ventilation, and response to care were monitored throughout the procedure. The physical status of the patient was re-assessed after the procedure. After I obtained informed consent, the scope was passed under direct vision. Throughout the procedure, the patient's blood pressure, pulse, and oxygen saturations were monitored continuously. The Colonoscope was introduced through the anus with the intention of advancing to the cecum. The scope was advanced to the sigmoid colon before the procedure was aborted due to patient discomfort. Medications were not given per pt request for unsedated colonoscopy. The quality of the bowel preparation was adequate. Anatomical landmarks were photographed. The colonoscopy was performed with difficulty due to the patient's discomfort during the procedure, therefore unable to advance to cecum. Complications: No immediate complications. Procedure Code(s): --- Professional --- 12030, 52, Colonoscopy, flexible; with biopsy, single or multiple --- Technical --- 08250, 52, Colonoscopy, flexible; with biopsy, single or multiple Diagnosis Code(s): --- Professional --- K64.0, First degree hemorrhoids K52.3, Indeterminate colitis --- Technical --- K64.0, First degree hemorrhoids K52.3, Indeterminate colitis CPT copyright 2021 [employer]. All rights reserved. The codes documented in this report are preliminary and upon inpatient coder review may be revised to meet current compliance requirements. Attending Participation: I personally performed the entire procedure. Alyssia Cast MD 08/31/2024 10:32:30 AM Number of Addenda: 0 Note Initiated On: 08/31/2024 10:02 AM documented in this encounter [facility] 08-31-2024 History and physical note GASTROENTEROLOGY H&P Procedure Note Patient: Zainab Gonzalez Date of : 1990 Age: 33 y.o. Sex: female PCP: Miky Askew DO Subjective: Indication: follow-up IBD Prior progress notes reviewed in [facility] and chart Past Medical History: Diagnosis Date control Condoms/radha family planning- hx of OCP camrese Body mass index (BMI) of 24.0-24.9 in adult Dysmenorrhea having vomiting on Day 1 of period, started zofran Family history of breast cancer brca offered Gestational diabetes 04/29/2016 History of COVID-19 History of vaccination against human papillomavirus DECLINED GARDASIL Menorrhagia Missed SCHEDULED FOR THE SURGERY ON 03/07/2018 Nausea & vomiting uses zofran first day or 2 of period Ulcerative colitis (HCC) Initial interdisciplinary assessment reviewed and concur with information Past Surgical History: Procedure Laterality Date COLONOSCOPY DILATION AND CURETTAGE OF UTERUS DILATION AND CURETTAGE OF UTERUS 03/07/2018 FLEXIBLE SIGMOIDOSCOPY 11/16/2018 bx taken Social History Occupational History Not on file Tobacco Use Smoking status: Never Smokeless tobacco: Never Vaping Use Vaping status: Never Used Substance and Sexual Activity Alcohol use: No Alcohol/week: 0.0 standard drinks of alcohol Drug use: Not Currently Types: Marijuana Sexual activity: Yes Partners: Male Family History Adopted: Yes Problem Relation Name Age of Onset Osteoarthritis Mother Ovarian cancer Neg Hx Diabetes Paternal Grandmother Hyperlipidemia Father Ulcerative colitis Other 1/2 sibling Colon cancer Neg Hx Breast cancer Paternal Grandmother elderly Additional Family History reviewed in [facility] Prior to Admission medications Medication Sig Start Date End Date Taking? Authorizing Provider mesalamine (Canasa) 1000 MG suppository Insert 1,000 mg into the rectum Nightly. Yes Historical Provider, mesalamine (Canasa) 1000 MG suppository Insert 1 suppository (1,000 mg) into the rectum Nightly. 09/15/23 09/14/24 Alyssia Cast MD mesalamine ER (Apriso) 0.375 g 24 hr capsule Take 4 capsules (1.5 g) by mouth daily. Do not crush or chew. 09/13/23 09/12/24 Alyssia Cast MD VIT [id number] PO Take by mouth. Historical Provider, Probiotic Product capsule Take by mouth. Historical Provider, Initial interdisciplinary assessment reviewed and concur with information Allergies: Allergies Allergen Reactions Latex Hives, Itching and Swelling Localized to area of involvement Pertinent Review of Systems: Reviewed with patient Objective: Physical Exam: See graphic record for vital signs HEENT: anicteric Neck: FROM Abdomen: benign Chest: CTA Neuro: nonfocal Ext: FROM B/L Impression: As above Plan: Proceed with endoscopy Physician Attestation: I affirm that prior to performing the procedure noted herein, that I have discussed with my patient the risks, benefits, and alternatives of: --Patient ID confirmed --the procedure to be performed as stated in the plan and on the consent form --the use of sedation and the plan --the patient has been assessed pre-sedation/pre-procedure and there are no changes Signed By: Alyssia Cast MD 08/31/2024 9:28 AM [facility] Note GASTROENTEROLOGY H&P Procedure Note Patient: Zainab Gonzalez Date of : 1990 Age: 33 y.o. Sex: female PCP: Miky Askew DO Subjective: Indication: follow-up IBD Prior progress notes reviewed in Epic and chart Past Medical History: Diagnosis Date control Condoms/radha family planning- hx of OCP camrese Body mass index (BMI) of 24.0-24.9 in adult Dysmenorrhea having vomiting on Day 1 of period, started zofran Family history of breast cancer brca offered Gestational diabetes 04/29/2016 History of COVID-19 History of vaccination against human papillomavirus DECLINED GARDASIL Menorrhagia Missed SCHEDULED FOR THE SURGERY ON 03/07/2018 Nausea & vomiting uses zofran first day or 2 of period Ulcerative colitis (HCC) Initial interdisciplinary assessment reviewed and concur with information Past Surgical History: Procedure Laterality Date COLONOSCOPY DILATION AND CURETTAGE OF UTERUS DILATION AND CURETTAGE OF UTERUS 03/07/2018 FLEXIBLE SIGMOIDOSCOPY 11/16/2018 bx taken Social History Occupational History Not on file Tobacco Use Smoking status: Never Smokeless tobacco: Never Vaping Use Vaping status: Never Used Substance and Sexual Activity Alcohol use: No Alcohol/week: 0.0 standard drinks of alcohol Drug use: Not Currently Types: Marijuana Sexual activity: Yes Partners: Male Family History Adopted: Yes Problem Relation Name Age of Onset Osteoarthritis Mother Ovarian cancer Neg Hx Diabetes Paternal Grandmother Hyperlipidemia Father Ulcerative colitis Other 1/2 sibling Colon cancer Neg Hx Breast cancer Paternal Grandmother elderly Additional Family History reviewed in [facility] Prior to Admission medications Medication Sig Start Date End Date Taking? Authorizing Provider mesalamine (Canasa) 1000 MG suppository Insert 1,000 mg into the rectum Nightly. Yes Historical ProviderMD mesalamine (Canasa) 1000 MG suppository Insert 1 suppository (1,000 mg) into the rectum Nightly. 09/15/23 09/14/24 Alyssia Cast MD mesalamine ER (Apriso) 0.375 g 24 hr capsule Take 4 capsules (1.5 g) by mouth daily. Do not crush or chew. 09/13/23 09/12/24 Alyssia Cast MD VIT [id number] PO Take by mouth. Historical ProviderMD Probiotic Product capsule Take by mouth. Historical Provider, Initial interdisciplinary assessment reviewed and concur with information Allergies: Allergies Allergen Reactions Latex Hives, Itching and Swelling Localized to area of involvement Pertinent Review of Systems: Reviewed with patient Objective: Physical Exam: See graphic record for vital signs HEENT: anicteric Neck: FROM Abdomen: benign Chest: CTA Neuro: nonfocal Ext: FROM B/L Impression: As above Plan: Proceed with endoscopy Physician Attestation: I affirm that prior to performing the procedure noted herein, that I have discussed with my patient the risks, benefits, and alternatives of: --Patient ID confirmed --the procedure to be performed as stated in the plan and on the consent form --the use of sedation and the plan --the patient has been assessed pre-sedation/pre-procedure and there are no changes Signed By: Alyssia Cast MD 08/31/2024 9:28 AM [facility] 08-31-2024 History and physical note GASTROENTEROLOGY H&P Procedure Note Patient: Zainab Gonzalez Date of : 1990 Age: 33 y.o. Sex: female PCP: Miky Askew DO Subjective: Indication: follow-up IBD Prior progress notes reviewed in [facility] and chart Past Medical History: Diagnosis Date control Condoms/radha family planning- hx of OCP camrese Body mass index (BMI) of 24.0-24.9 in adult Dysmenorrhea having vomiting on Day 1 of period, started zofran Family history of breast cancer brca offered Gestational diabetes 04/29/2016 History of COVID-19 History of vaccination against human papillomavirus DECLINED GARDASIL Menorrhagia Missed SCHEDULED FOR THE SURGERY ON 03/07/2018 Nausea & vomiting uses zofran first day or 2 of period Ulcerative colitis (HCC) Initial interdisciplinary assessment reviewed and concur with information Past Surgical History: Procedure Laterality Date COLONOSCOPY DILATION AND CURETTAGE OF UTERUS DILATION AND CURETTAGE OF UTERUS 03/07/2018 FLEXIBLE SIGMOIDOSCOPY 11/16/2018 bx taken Social History Occupational History Not on file Tobacco Use Smoking status: Never Smokeless tobacco: Never Vaping Use Vaping status: Never Used Substance and Sexual Activity Alcohol use: No Alcohol/week: 0.0 standard drinks of alcohol Drug use: Not Currently Types: Marijuana Sexual activity: Yes Partners: Male Family History Adopted: Yes Problem Relation Name Age of Onset Osteoarthritis Mother Ovarian cancer Neg Hx Diabetes Paternal Grandmother Hyperlipidemia Father Ulcerative colitis Other 1/2 sibling Colon cancer Neg Hx Breast cancer Paternal Grandmother elderly Additional Family History reviewed in [facility] Prior to Admission medications Medication Sig Start Date End Date Taking? Authorizing Provider mesalamine (Canasa) 1000 MG suppository Insert 1,000 mg into the rectum Nightly. Yes Historical ProviderMD mesalamine (Canasa) 1000 MG suppository Insert 1 suppository (1,000 mg) into the rectum Nightly. 09/15/23 09/14/24 Alyssia Cast MD mesalamine ER (Apriso) 0.375 g 24 hr capsule Take 4 capsules (1.5 g) by mouth daily. Do not crush or chew. 09/13/23 09/12/24 Alyssia Cast MD VIT [id number] PO Take by mouth. Historical ProviderMD Probiotic Product capsule Take by mouth. Historical Provider, Initial interdisciplinary assessment reviewed and concur with information Allergies: Allergies Allergen Reactions Latex Hives, Itching and Swelling Localized to area of involvement Pertinent Review of Systems: Reviewed with patient Objective: Physical Exam: See graphic record for vital signs HEENT: anicteric Neck: FROM Abdomen: benign Chest: CTA Neuro: nonfocal Ext: FROM B/L Impression: As above Plan: Proceed with endoscopy Physician Attestation: I affirm that prior to performing the procedure noted herein, that I have discussed with my patient the risks, benefits, and alternatives of: --Patient ID confirmed --the procedure to be performed as stated in the plan and on the consent form --the use of sedation and the plan --the patient has been assessed pre-sedation/pre-procedure and there are no changes Signed By: Alyssia Cast MD 08/31/2024 9:28 AM documented in this encounter [facility] 08-30-2024 Note Ok to proceed with c olonoscopy if no fever Please also advise pt it is probably OK for her to listen to audiobook if she has headphones for the unsedated procedure. Would not be able to have speaker on during procedure [facility] [employer] [facility] 08-09-2024 History of Present illness Narrative Temperature Regulator was offered to the patient for exam. Patient accepted, clinical laboratory medical director in room during exam Zainab Campos Abraham 08/09/2024 33 y.o. Primary Care Physician: Miky Askew DO Chief Complaint Patient presents with Annual Exam Well woman Last pap-04/12/2023, normal HPI : Zainab Gonzalez is a 33 y.o. female here for annual exam ___ Gynecologic History: Patient's last menstrual period was 08/04/2024 (exact date). Pt without complaints. Regular periods every month. No heavy bleeding or cramping. No pelvic pain. No vaginal discharge. OB History Para Term AB Living 4 3 3 0 1 3 SAB IAB Ectopic Multiple Live Births 1 0 0 0 3 # Outcome Date GA Lbr Carlos/2nd Weight Sex Type Anes PTL Lv 4 Term 08/28/21 40w3d 4082 g (9 lb) F Vag-Spont MARY Name: Cynthia 3 Term 09/21/19 39w5d F Vag-Spont None N MARY Comments: Active labor was 4 hours Name: Carla Morgan 2 SAB 01/31/17 Comments: D&C 1 Term 07/25/16 39w2d 3175 g (7 lb) M Vag-Spont EPI N MARY Complications: History of gestational diabetes mellitus (GDM) Name: Yuri Abraham Apgar1: 9 Apgar5: 9 Past Medical History: Diagnosis Date control Condoms/radha family planning- hx of OCP camrese Body mass index (BMI) of 24.0-24.9 in adult Dysmenorrhea having vomiting on Day 1 of period, started zofran Family history of breast cancer brca offered Gestational diabetes 04/29/2016 History of COVID-19 History of vaccination against human papillomavirus DECLINED GARDASIL Menorrhagia Missed SCHEDULED FOR THE SURGERY ON 03/07/2018 Nausea & vomiting uses zofran first day or 2 of period Ulcerative colitis (HCC) Past Surgical History: Procedure Laterality Date COLONOSCOPY DILATION AND CURETTAGE OF UTERUS DILATION AND CURETTAGE OF UTERUS 03/07/2018 FLEXIBLE SIGMOIDOSCOPY 11/16/2018 bx taken Family History Adopted: Yes Problem Relation Name Age of Onset Osteoarthritis Mother Ovarian cancer Neg Hx Diabetes Paternal Grandmother Hyperlipidemia Father Ulcerative colitis Other 1/2 sibling Colon cancer Neg Hx Breast cancer Paternal Grandmother elderly Social History Socioeconomic History Marital status: Spouse name: Not on file Number of children: Not on file Years of education: Not on file Highest education level: Not on file Occupational History Not on file Tobacco Use Smoking status: Never Smokeless tobacco: Never Vaping Use Vaping status: Never Used Substance and Sexual Activity Alcohol use: No Alcohol/week: 0.0 standard drinks of alcohol Drug use: Not Currently Types: Marijuana Sexual activity: Yes Partners: Male Other Topics Concern Not on file Social History Narrative Not on file Social Drivers of Health Financial Resource Strain: Not on file Food Insecurity: Not on file Transportation Needs: No Transportation Needs (08/09/2024) PRAPARE - Transportation Lack of Transportation (Medical): No Lack of Transportation (Non-Medical): No Physical Activity: Not on file Stress: Not on file Social Connections: Not on file Intimate Partner Violence: Not on file Housing Stability: Low Risk (08/09/2024) Housing Stability Vital Sign Unable to Pay for Housing in the Last Year: No Number of Times Moved in the Last Year: 0 Homeless in the Last Year: No MEDICATIONS: Current Outpatient Medications Medication Sig Dispense Refill mesalamine (Canasa) 1000 MG suppository Insert 1,000 mg into the rectum Nightly. mesalamine (Canasa) 1000 MG suppository Insert 1 suppository (1,000 mg) into the rectum Nightly. 30 suppository 11 mesalamine ER (Apriso) 0.375 g 24 hr capsule Take 4 capsules (1.5 g) by mouth daily. Do not crush or chew. 360 capsule 3 VIT [id number] PO Take by mouth. Probiotic Product capsule Take by mouth. No current facility-administered medications for this visit. ALLERGIES: Allergies as of 08/09/2024 - Reviewed 08/09/2024 Allergen Reaction Noted Latex Hives, Itching, and Swelling 03/07/2018 REVIEW OF SYSTEMS: CONSTIUTIONAL: No fever, chills or malaise; No weight change or fatigue CV: No Chest Pain with Exertion, Palpitations, Syncope, Edema, Arrhythmia RESPIRATORY: No SOB, Pneumoniae,Cough, BREAST: No breast abnormalities or lumps GI: No Indigestion, Heartburn, Nausea, vomiting, Diarrhea, Constipation,Bloating or Bowel Changes; No Bloody Stools or melena : No Dysuria, Hematuria or Nocturia. No Urinary Incontinence or Vaginal Discharge,vaginal bleeding, or dysparuenia. NEURO: No CVA, Migraines, Epilepsy, Seizure Hx, or Limb Weakness DERM: No Rash, Itching, Hives, Mole Changes or Cancer PSYCH: No Depression, Homicidal thoughts,suicidal thoughts, or anxiety MUSCULOSKELETAL: No Arthralgia, or Arthritis HEME and LYMPH :No Lymphoma, Von Willebrand's, Hemophillia or Bleeding History PHYSICAL EXAM: Vitals: 08/09/24 1235 BP: 110/60 Weight: 57.2 kg (126 lb) Height: 1.6 m (5' 3) Body mass index is 22.32 kg/m . LACE MENDER EXAM: EXTERNAL GENITALIA: normal female structures VAGINA: normal ruggae, no lesions CERVIX: no lesions, normal appearance. ANUS/PERINEUM: no hemorrhoids, masses or warts noted. GENERAL EXAM BREAST: b/l symmetric without masses or tenderness CONSTITUTIONAL: Well developed, well nourished, well groomed. no acute distress NECK: no thyromegaly, supple. CARDIOVASCULAR: normal rate and rhythm, no edema LUNGS: Normal effort, normal lung sounds ABDOMEN:soft, non-tender, non-distended, no hepatospleenomegaly SKIN: intact, dry NEUROLOGICAL: no gross motor or sensory deficits noted. . MUSCULOSKELETAL: normal gait, no cyanosis. PSYCHIATRIC Normal mood and affect, A&O x3. ASSESSMENT/PLAN: Zainab was seen today for annual exam. Diagnoses and all orders for this visit: Well woman exam with routine gynecological exam - Pap Smear Cervical cancer screening - Pap Smear Normal annual Follow up in about 1 year (around 08/09/2025). documented in this encounter [facility] 04-07-2024 Note Name of Caller: Latoya elliott Contact Reason for Appointment: Pt is requesting to r/s her 04/14 procedure appt. Please advise Office Name: [facility] [place] Gastroenterology [facility] 12-02-2023 History of Present illness Narrative GASTROENTEROLOGY OUTPATIENT TELEHEALTH VISIT Patient: Zainab Gonzalez Date of : 1990 Age: 33 y.o. Sex: female PCP: MIKY ASKEW DO Subjective: Patient was identified and seen today via Telehealth by agreement and consent. I used the following Telehealth technology: Audio and video capabilities. Patient location: Patient Location: Home. This patient encounter is appropriate and reasonable under the circumstances: transportation issues and feeling sick/caring for children . The patient has been advised of the potential risks and limitations of this mode of treatment (including but not limited to the absence of in-person examination) and has agreed to be treated in a remote fashion in spite of them. Any and all of the patient's/patient's family's questions on this issue have been answered and I have made no promises or guarantees to the patient. The patient has also been advised to contact this office for worsening conditions or problems, and seek emergency medical treatment and/or call 911 if the patient deems either necessary. The patient stated that they are currently in the state [facility]. If the patient is a minor, permission has been obtained by the parent or guardian for the patient to receive medical care at this visit. Telehealth visit I have spent 30 minutes with the patient for TE and reviewing the chart and coordinating their care. S: GI f/u of IBD. Last GI clinic visit was virtual visit 10/2022 (see prior clinic note for details) Since last clinic visit, pt has been stable. IBD sx have controlled. Pt reports a intermittent flares since last visit that were controlled with Canasa suppositories. She is still on Apriso - does not need refills. 2 yr daughter, 4 yrsDaughter (Carla), 7 yrs Son Yuri GERD sx resolved. Pt attributes prior sx to Prior Colonoscopy: [address] Sheppard Flex Si11/16/2018 c/w proctitis Past Medical History: Diagnosis Date control Condoms/radha family planning- hx of OCP camrese Body mass index (BMI) of 24.0-24.9 in adult Dysmenorrhea having vomiting on Day 1 of period, started zofran Family history of breast cancer brca offered Gestational diabetes 04/29/2016 History of COVID-19 History of vaccination against human papillomavirus DECLINED GARDASIL Menorrhagia Missed SCHEDULED FOR THE SURGERY ON 03/07/2018 Nausea & vomiting uses zofran first day or 2 of period Ulcerative colitis (HCC) Past Surgical History: Procedure Laterality Date COLONOSCOPY DILATION AND CURETTAGE OF UTERUS DILATION AND CURETTAGE OF UTERUS 03/07/2018 FLEXIBLE SIGMOIDOSCOPY 11/16/2018 bx taken Social History Occupational History Not on file Tobacco Use Smoking status: Never Smokeless tobacco: Never Vaping Use Vaping Use: Never used Substance and Sexual Activity Alcohol use: No Alcohol/week: 0.0 standard drinks of alcohol Drug use: Not Currently Types: Marijuana Sexual activity: Yes Partners: Male Family History Adopted: Yes Problem Relation Name Age of Onset Osteoarthritis Mother Ovarian cancer Neg Hx Diabetes Paternal Grandmother Hyperlipidemia Father Ulcerative colitis Other 1/2 sibling Colon cancer Neg Hx Breast cancer Paternal Grandmother elderly Prior to Admission medications Medication Sig Start Date End Date Taking? Authorizing Provider mesalamine (Canasa) 1000 MG suppository Insert 1,000 mg into the rectum Nightly. Historical Provider, mesalamine (Canasa) 1000 MG suppository Insert 1 suppository (1,000 mg) into the rectum Nightly. 09/15/23 09/14/24 Alyssia Cast MD mesalamine ER (Apriso) 0.375 g 24 hr capsule Take 4 capsules (1.5 g) by mouth daily. Do not crush or chew. 09/13/23 09/12/24 Alyssia Cast MD VIT [id number] PO Take by mouth. Historical Provider, Probiotic Product capsule Take by mouth. Historical Provider, Allergies: Allergies Allergen Reactions Latex Hives, Itching and Swelling Localized to area of involvement Review of Systems: Constitutional: see HPI History obtained from the patient HENT ROS: denies ARMIJO, denies ear pain, denies sore throat, denies sinus pressure, + runny nose, post nasal drip Eyes: denies blurry vision Respiratory ROS: denies SOB, + cough Cardiovascular ROS: denies chest pain Gastrointestinal ROS: see HPI Genito-Urinary ROS: denies dysuria Musculoskeletal ROS: denies joint pain Neurological ROS: denies seizures, weakness, difficulty sleeping Dermatological ROS: denies rash Objective: Physical Exam: There were no vitals taken for this visit. No direct examination - Telehealth visit Gen: comfortable, appears nourished Skin: warm, dry Eyes: anicteric sclera Chest: normal effort Neuro: nonfocal Psych: normal mood and affect, thought content normal, alert and oriented Labs/Studies reviewed in Epic at today's current clinic visit Lab Results Component Value Date WBC 8.5 05/20/2021 HGB 11.4 (L) 05/20/2021 MCV 93.6 05/20/2021 No results found for: ALT, AST, GGT, ALKPHOS, BILITOT Recent Imaging: No GI results found. Flex Sig 11/16/2018 Pathology DIAGNOSIS: A. LEFT COLON BIOPSY - FRAGMENT OF COLONIC MUCOSA WITH NO SIGNIFICANT HISTOPATHOLOGIC CHANGES B. RECTOSIGMOID, BIOPSY - CHRONIC ACTIVE COLITIS COMMENT: There is marked active colitis with crypt abscesses and mild architectural distortion. Granulomas are not identified. Dysplasia is not identified. The differential diagnosis of this pattern of injury most prominently includes diverticular-associated colitis and inflammatory bowel disease, among others. ASSESSMENT/PLAN: Ulcerative proctitis with complication (HCC) Gastroesophageal reflux disease, esophagitis presence not specified - sx stable --Continue current medications. Apriso and suppositories prn if lower GI sx recur --Recommend scheduling colonoscopy for re-evaluation of inflammatory bowel disease. Per pt request, will ask GI staff to schedule for the procedure in the summer. --Miralax bowel preparation for colonoscopy. --Pt requests unsedated procedure. Asked GI staff to schedule for 60 minutes as multiple biopsies will need to be done during unsedated procedure. FOLLOW-UP: Advised patient to please follow-up with PCP, and follow-up after colonoscopy in GI clinic following the above evaluation and recommendations. Signed By: ALYSSIA CAST MD documented in this encounter [facility] [employer] 12-02-2023 Instructions Maribell Caputo MA - 12/02/2023 1:00 PM EST --Recommend scheduling colonoscopy for re-evaluation of your inflammatory bowel disease. Per your request, will ask GI staff to schedule you for the procedure in the summer. [address] [place] [address]. 04/14/24 at 10:30 am arrive at 9:[address] Cast. Case #[id number] --Miralax bowel preparation for colonoscopy. Also, pt does not want sedation- Per Dr. Cast: please schedule procedure for 60 minutes as I will need to do lots of biopsies and she will be unsedated henrry --Please follow-up with your PCP and after colonoscopy with me in GI clinic following the above evaluation and recommendations. documented in this encounter [facility] [employer] 12-02-2023 Note --Recommend scheduli ng colonoscopy for re-evaluation of your inflammatory bowel disease. Per your request, will ask GI staff to schedule you for the procedure in the summer. [facility] 04/14/24 at 10:30 am arrive at 9:[address] Cast. Case #[id number] --Miralax bowel preparation for colonoscopy. Also, pt does not want sedation- Per Dr. Cast: please schedule procedure for 60 minutes as I will need to do lots of biopsies and she will be unsedated henrry --Please follow-up with your PCP and after colonoscopy with me in GI clinic following the above evaluation and recommendations. [facility] 09-15-2023 Telephone encounter Note Pt notified through [employer]. [facility] 09-15-2023 Miscellaneous Notes Pt notified through [employer]. Addended by: ALYSSIA CAST on: 09/15/2023 10:11 AM Modules accepted: Orders Pt called back in to see if there were any updates on getting her refill for her mesalamine (Canasa) 1000 MG suppository. Pt states pharmacy ordered capsules instead of suppositories. Pt is requesting a call back to verify. Please advise Patient requesting suppositories be sent tonight if at all possible. Verified pharmacy. Addended by: KATHRIN CHAN on: 09/14/2023 10:13 AM Modules accepted: Orders Medication Attached with Pharmacy. Please advise and thank you GI staff, please contact pt Please ask pt which specific medication she has used that worked in the past that she would like refilled (ex. There are several options for suppositories) Please also ask pt what quantity of supply she would like Please pend order for me to sign with updated pharmacy Thank you Patient notified of refill but is requesting suppositories instead of capsules. ([facility] pharmacy) Please advise and thank you Medication refilled. Please notify pt. Please also schedule GI follow-up appt. Thank you Refill Request for: Mesalamine Pt last seen by Dr. Cast on 11/12/22 Last AVS instructs: --Continue current medications --Please follow-up with your PCP and 1 year with me in GI clinic following the above evaluation and recommendations. Upcoming appts: None Please advise, thank you!! documented in this encounter [facility] [employer] 09-15-2023 Note Addended by: ALYSSIA IBARRA on: 09/15/2023 10:11 AM Modules accepted: Orders [facility] 09-15-2023 Note Addended by: ALYSSIA IBARRA on: 09/15/2023 10:11 AM Modules accepted: Orders [facility] [employer] 09-15-2023 Telephone encounter Note Pt called back in to see if there were any updates on getting her refill for her mesalamine (Canasa) 1000 MG suppository. Pt states pharmacy ordered capsules instead of suppositories. Pt is requesting a call back to verify. Please advise [facility] [employer] 09-14-2023 Telephone encounter Note Patient requesting suppositories be sent tonight if at all possible. Verified pharmacy. [facility] [employer] 09-14-2023 Miscellaneous Notes Patient requesting suppositories be sent tonight if at all possible. Verified pharmacy. Addended by: KATHRIN CHAN on: 09/14/2023 10:13 AM Modules accepted: Orders Medication Attached with Pharmacy. Please advise and thank you GI staff, please contact pt Please ask pt which specific medication she has used that worked in the past that she would like refilled (ex. There are several options for suppositories) Please also ask pt what quantity of supply she would like Please pend order for me to sign with updated pharmacy Thank you Patient notified of refill but is requesting suppositories instead of capsules. ([facility] pharmacy) Please advise and thank you Medication refilled. Please notify pt. Please also schedule GI follow-up appt. Thank you Refill Request for: Rulaalamdilia Pt last seen by Dr. Cast on 11/12/22 Last AVS instructs: --Continue current medications --Please follow-up with your PCP and 1 year with me in GI clinic following the above evaluation and recommendations. Upcoming appts: None Please advise, thank you!! documented in this encounter [facility] [employer] 09-14-2023 Note Addended by: KATHRIN CHAN on: 09/14/2023 10:13 AM Modules accepted: Orders [facility] [employer] 09-14-2023 Note Addended by: KATHRIN CHAN on: 09/14/2023 10:13 AM Modules accepted: Orders [facility] [employer] 09-14-2023 Note Addended by: KATHRIN CHAN on: 09/14/2023 10:13 AM Modules accepted: Orders [facility] [employer] 09-14-2023 Note Addended by: KATHIRN CHAN on: 09/14/2023 10:13 AM Modules accepted: Orders [facility] 09-14-2023 Note Addended by: KATHRIN CHAN on: 09/14/2023 10:13 AM Modules accepted: Orders [facility] [employer] 09-14-2023 Telephone encounter Note Medication Attached with Pharmacy. Please advise and thank you [facility] [employer] 09-13-2023 Telephone encounter Note GI staff, please contact pt Please ask pt which specific medication she has used that worked in the past that she would like refilled (ex. There are several options for suppositories) Please also ask pt what quantity of supply she would like Please pend order for me to sign with updated pharmacy Thank you [facility] 09-13-2023 Miscellaneous Notes GI staff, please contact pt Please ask pt which specific medication she has used that worked in the past that she would like refilled (ex. There are several options for suppositories) Please also ask pt what quantity of supply she would like Please pend order for me to sign with updated pharmacy Thank you Patient notified of refill but is requesting suppositories instead of capsules. ([facility] pharmacy) Please advise and thank you Medication refilled. Please notify pt. Please also schedule GI follow-up appt. Thank you Refill Request for: Mesalamine Pt last seen by Dr. Cast on 11/12/22 Last S instructs: --Continue current medications --Please follow-up with your PCP and 1 year with me in GI clinic following the above evaluation and recommendations. Upcoming appts: None Please advise, thank you!! documented in this encounter [facility] 09-13-2023 Telephone encounter Note Patient notified of refill but is requesting suppositories instead of capsules. ([facility]) Please advise and thank you [facility] [employer] 09-06-2023 Telephone encounter Note Medication refilled. Please notify pt. Please also schedule GI follow-up appt. Thank you [facility] [employer] 09-06-2023 Telephone encounter Note Refill Request for: Mesalamine Pt last seen by Dr. Cast on 11/12/22 Last AVS instructs: --Continue current medications --Please follow-up with your PCP and 1 year with me in GI clinic following the above evaluation and recommendations. Upcoming appts: None Please advise, thank you!! [facility] [employer] 07-19-2023 Telephone encounter Note S: Patient spoke with [facility] nurse regarding chest pain B: Onset of symptoms/concern 07/19/23 A: Patient having chest pain after coughing and sneezing at same time. States they felt something pop. States hurts to take a deep breath but no respiratory distress. States they are at the tail end of bronchitis. Denies difficulty breathing, denies fever, denies shortness of breath at rest, denies dizziness or lightheadedness. R: Page sent to director of infection control provider, Dr. Castellon. Per Dr. Castellon utilize OTC pain medication per package directions. If not improved in a day or two call office. Patient understands care advice use a pillow hugged to chest as a brace when coughing or sneezing, no strenuous lifting or activity for several days. No further needs at this time. Patient instructed to call back with new or worsening symptoms. Reason for Disposition [1] Can't take a deep breath BUT [2] no respiratory distress Protocols used: Chest Oxytpi-UVNFM-IH [employer] [facility] [employer] 07-19-2023 Miscellaneous Notes S: Patient spoke with [facility] nurse regarding chest pain B: Onset of symptoms/concern 07/19/23 A: Patient having chest pain after coughing and sneezing at same time. States they felt something pop. States hurts to take a deep breath but no respiratory distress. States they are at the tail end of bronchitis. Denies difficulty breathing, denies fever, denies shortness of breath at rest, denies dizziness or lightheadedness. R: Page sent to director of infection control provider, Dr. Castellon. Per Dr. Castellon utilize OTC pain medication per package directions. If not improved in a day or two call office. Patient understands care advice use a pillow hugged to chest as a brace when coughing or sneezing, no strenuous lifting or activity for several days. No further needs at this time. Patient instructed to call back with new or worsening symptoms. Reason for Disposition [1] Can't take a deep breath BUT [2] no respiratory distress Protocols used: Chest [id number] documented in this encounter [facility] 05-10-2023 History of Present illness Narrative General Surgery History and Physical HPI: This is a 32 y/o F who presents to office with complaints of rectal pain, and bleeding. She reports hx of hemorrhoids since first child in 2014. She reports pain and bleeding intermittent but seems to be worse recently. She has hx of UC and states has similar symptoms when she has UC flare up. UC managed by GI at [facility]. She reports last colonoscopy 2-3 years ago. Pathology showing chronic active colitis at rectosigmoid area. She is on mesalamine for her UC. She states has tried multiple therapies for her hemorrhoids including steroid cream, and suppositories. She is not on daily fiber. She denies constipation or straining and states has BM daily. No prior abdominal surgeries. Thoroughly reviewed the patient's medical history, family history, social history and review of systems with the patient today in the office. Please see medical record for pertinent positives. Impression /Treatment: Patient with pain and occasional bleeding possibly associated with internal hemorrhoids. She does have history of ulcerative colitis which complicates diagnosis. Will start daily fiber and water to improve bowel habits and follow-up to monitor symptoms in 6 weeks. Patient counseled on risks, benefits, and alternatives of treatment plan at length while in the office today. Patient states an understanding and willingness to proceed with plan. Past Medical History: Diagnosis Date control Condoms/radha family planning- hx of OCP camrese Body mass index (BMI) of 24.0-24.9 in adult Dysmenorrhea having vomiting on Day 1 of period, started zofran Family history of breast cancer brca offered Gestational diabetes 04/29/2016 History of COVID-19 History of vaccination against human papillomavirus DECLINED GARDASIL Menorrhagia Missed SCHEDULED FOR THE SURGERY ON 03/07/2018 Nausea & vomiting uses zofran first day or 2 of period Ulcerative colitis (HCC) Past Surgical History: Procedure Laterality Date COLONOSCOPY DILATION AND CURETTAGE OF UTERUS DILATION AND CURETTAGE OF UTERUS 03/07/2018 FLEXIBLE SIGMOIDOSCOPY 11/16/2018 bx taken Current Outpatient Medications Medication Sig Dispense Refill VIT [id number] PO Take by mouth. Probiotic Product capsule Take by mouth. mesalamine ER (Apriso) 0.375 g 24 hr capsule Take 4 capsules (1.5 g) by mouth daily. Do not crush or chew. 360 capsule 3 No current facility-administered medications for this visit. Allergies Allergen Reactions Latex Hives, Itching and Swelling Localized to area of involvement Review of Systems: Review of Systems Constitutional: Negative for appetite change, chills, fatigue, fever and unexpected weight change. Respiratory: Negative for cough, shortness of breath and wheezing. Cardiovascular: Negative for chest pain and palpitations. Gastrointestinal: Positive for anal bleeding and rectal pain. Negative for abdominal pain, constipation, diarrhea, nausea and vomiting. Skin: Negative for rash and wound. Neurological: Negative for seizures and syncope. Hematological: Negative for adenopathy. Does not bruise/bleed easily. Physical Exam: BP 105/70 Pulse 89 Temp 36.7 C (98 F) (Temporal) Ht 5' 3 (1.6 m) Wt 126 lb (57.2 kg) LMP 03/25/2023 (Exact Date) BMI 22.32 kg/m Physical Exam Exam conducted with a ep technologist present. Constitutional: Appearance: Normal appearance. HENT: Head: Normocephalic. Eyes: Pupils: Pupils are equal, round, and reactive to light. Cardiovascular: Rate and Rhythm: Normal rate and regular rhythm. Pulses: Normal pulses. Pulmonary: Effort: Pulmonary effort is normal. No respiratory distress. Breath sounds: Normal breath sounds. No rales. Abdominal: General: Bowel sounds are normal. Palpations: Abdomen is soft. There is no mass. Tenderness: There is no abdominal tenderness. Genitourinary: Comments: Rectal exam External: Unremarkable SUKHWINDER: Normal tone no masses or lesions and no blood Anoscopy: Diffuse mildly inflamed hemorrhoid tissue in expected locations, otherwise unremarkable Musculoskeletal: General: No swelling or tenderness. Cervical back: Normal range of motion. No tenderness. Lymphadenopathy: Cervical: No cervical adenopathy. Skin: General: Skin is warm and dry. Neurological: Mental Status: She is alert and oriented to person, place, and time. Psychiatric: Behavior: Behavior normal. No orders of the defined types were placed in this encounter. Follow Up: No follow-ups on file. Gopi Trinidad MD RB 05/10/2023 documented in this encounter [facility] 04-12-2023 History of Present illness Narrative Zainab Gonzalez 04/12/2023 32 y.o. Primary Care Physician: MIKY AKSEW DO Chief Complaint Patient presents with Annual Exam HPI : Zainab Gonzalez is a 32 y.o. female here for annual exam ___ Gynecologic History: Patient's last menstrual period was 03/25/2023 (exact date). Pt without complaints. Regular periods every month. No heavy bleeding or cramping. No pelvic pain. No vaginal discharge. OB History Para Term AB Living 4 3 3 0 1 3 SAB IAB Ectopic Multiple Live Births 1 0 0 0 3 # Outcome Date GA Lbr Carlos/2nd Weight Sex Delivery Anes PTL Lv 4 Term 08/28/21 40w3d 9 lb (4.082 kg) F Vag-Spont MARY Name: Cynthia 3 Term 09/21/19 39w5d F Vag-Spont None N MARY Comments: Active labor was 4 hours Name: Carla Gonzalez 2 SAB 01/31/17 Comments: D&C 1 Term 07/25/16 39w2d 7 lb (3.175 kg) M Vag-Spont EPI N MARY Complications: History of gestational diabetes mellitus (GDM) Name: Yuri Gonzalez Apgar1: 9 Apgar5: 9 Past Medical History: Diagnosis Date control Condoms/radha family planning- hx of OCP camrese Body mass index (BMI) of 24.0-24.9 in adult Dysmenorrhea having vomiting on Day 1 of period, started zofran Family history of breast cancer brca offered Gestational diabetes 04/29/2016 History of COVID-19 History of vaccination against human papillomavirus DECLINED GARDASIL Menorrhagia Missed SCHEDULED FOR THE SURGERY ON 03/07/2018 Nausea & vomiting uses zofran first day or 2 of period Ulcerative colitis (HCC) Past Surgical History: Procedure Laterality Date DILATION AND CURETTAGE OF UTERUS DILATION AND CURETTAGE OF UTERUS 03/07/2018 FLEXIBLE SIGMOIDOSCOPY 11/16/2018 bx taken Family History Adopted: Yes Problem Relation Name Age of Onset Osteoarthritis Mother Ovarian cancer Neg Hx Diabetes Paternal Grandmother Hyperlipidemia Father Ulcerative colitis Other 1/2 sibling Colon cancer Neg Hx Breast cancer Paternal Grandmother elderly Social History Socioeconomic History Marital status: Spouse name: Not on file Number of children: Not on file Years of education: Not on file Highest education level: Not on file Occupational History Not on file Tobacco Use Smoking status: Never Smokeless tobacco: Never Vaping Use Vaping Use: Never used Substance and Sexual Activity Alcohol use: No Alcohol/week: 0.0 standard drinks of alcohol Drug use: Not Currently Types: Marijuana Sexual activity: Yes Partners: Male Other Topics Concern Not on file Social History Narrative Not on file Social Determinants of Health Financial Resource Strain: Not on file Food Insecurity: Not on file Transportation Needs: Not on file Physical Activity: Not on file Stress: Not on file Social Connections: Not on file Intimate Partner Violence: Not on file Housing Stability: Not on file MEDICATIONS: Current Outpatient Medications Medication Sig Dispense Refill mesalamine ER (Apriso) 0.375 g 24 hr capsule Take 4 capsules (1.5 g) by mouth daily. Do not crush or chew. 360 capsule 3 VIT [id number]-LT PO Take by mouth. Probiotic Product capsule Take by mouth. No current facility-administered medications for this visit. ALLERGIES: Allergies as of 04/12/2023 - Reviewed 11/11/2022 Allergen Reaction Noted Latex Hives, Itching, and Swelling 03/07/2018 REVIEW OF SYSTEMS: CONSTIUTIONAL: No fever, chills or malaise; No weight change or fatigue CV: No Chest Pain with Exertion, Palpitations, Syncope, Edema, Arrhythmia RESPIRATORY: No SOB, Pneumoniae,Cough, BREAST: No breast abnormalities or lumps GI: No Indigestion, Heartburn, Nausea, vomiting, Diarrhea, Constipation,Bloating or Bowel Changes; No Bloody Stools or melena POS HEMORRHOIDS : No Dysuria, Hematuria or Nocturia. No Urinary Incontinence or Vaginal Discharge,vaginal bleeding, or dysparuenia. NEURO: No CVA, Migraines, Epilepsy, Seizure Hx, or Limb Weakness DERM: No Rash, Itching, Hives, Mole Changes or Cancer PSYCH: No Depression, Homicidal thoughts,suicidal thoughts, or anxiety MUSCULOSKELETAL: No Arthralgia, or Arthritis HEME and LYMPH :No Lymphoma, Von Willebrand's, Hemophillia or Bleeding History PHYSICAL EXAM: Vitals: 04/12/23 0943 BP: 107/69 Pulse: 71 Weight: 127 lb (57.6 kg) Height: 5' 3 (1.6 m) Body mass index is 22.5 kg/m . LACE MENDER EXAM: EXTERNAL GENITALIA: normal female structures VAGINA: normal ruggae, no lesions CERVIX: no lesions, normal appearance. ANUS/PERINEUM: no hemorrhoids, masses or warts noted. GENERAL EXAM BREAST: b/l symmetric without masses or tenderness CONSTITUTIONAL: Well developed, well nourished, well groomed. no acute distress NECK: no thyromegaly, supple. CARDIOVASCULAR: normal rate and rhythm, no edema LUNGS: Normal effort, normal lung sounds ABDOMEN:soft, non-tender, non-distended, no hepatospleenomegaly SKIN: intact, dry NEUROLOGICAL: no gross motor or sensory deficits noted. . MUSCULOSKELETAL: normal gait, no cyanosis. PSYCHIATRIC Normal mood and affect, A&O x3. ASSESSMENT/PLAN: Zainab was seen today for annual exam. Diagnoses and all orders for this visit: Encounter for gynecological examination without abnormal finding (Primary) - Pap Smear Hemorrhoids, unspecified hemorrhoid type - [facility] General Surgery [place]; Future Normal annual Still breast feeding Send to for hemorrhoids Follow up in about 1 year (around 04/12/2024). documented in this encounter [facility] 11-12-2022 History of Present illness Narrative GASTROENTEROLOGY OUTPATIENT PROGRESS NOTE Patient: Zainab Gonzalez Date of : 1990 Age: 31 y.o. Sex: female PCP: MIKY ASKEW DO Subjective: Patient was seen today via Telehealth by agreement and consent in light of the current COVID-19 pandemic. I used the following Telehealth technology: Audio and video capabilities Patient location: Home. This patient encounter is appropriate and reasonable under the circumstances given the patient's particular presentation at this time. The patient has been advised of the potential risks and limitations of this mode of treatment (including but not limited to the absence of in-person examination) and has agreed to be treated in a remote fashion in spite of them. Any and all of the patient's/patient's family's questions on this issue have been answered and I have made no promises or guarantees to the patient. The patient has also been advised to contact this office for worsening conditions or problems, and seek emergency medical treatment and/or call 911 if the patient deems either necessary. The patient stated that they are currently in the [facility]. If the patient is a minor, permission has been obtained by the parent or guardian for the patient to receive medical care at this visit. I have spent 30 minutes with the patient for this encounter and reviewing the chart and coordinating their care. S: GI f/u of IBD. Last GI clinic visit was virtual visit 11/2021 (see prior clinic note for details) Since last clinic visit, pt has been stable. IBD sx have been well controlled. Pt reports a few small flares since last visit that were controlled with Canasa suppositories. She is still on Apriso - does not need refills. Daughter (Carla) Son Yuri GERD sx resolved. Pt attributes prior sx to Prior Colonoscopy: [address] Sheppard Flex Si11/16/2018 c/w proctitis Past Medical History: Diagnosis Date control Condoms/radha family planning- hx of OCP camrese Body mass index (BMI) of 24.0-24.9 in adult Dysmenorrhea having vomiting on Day 1 of period, started zofran Family history of breast cancer brca offered Gestational diabetes 04/29/2016 History of COVID-19 History of vaccination against human papillomavirus DECLINED GARDASIL Menorrhagia Missed SCHEDULED FOR THE SURGERY ON 03/07/2018 Nausea & vomiting uses zofran first day or 2 of period Ulcerative colitis (HCC) Past Surgical History: Procedure Laterality Date DILATION AND CURETTAGE OF UTERUS DILATION AND CURETTAGE OF UTERUS 03/07/2018 FLEXIBLE SIGMOIDOSCOPY 11/16/2018 bx taken Social History Occupational History Not on file Tobacco Use Smoking status: Never Smokeless tobacco: Never Substance and Sexual Activity Alcohol use: No Alcohol/week: 0.0 standard drinks Drug use: Not Currently Types: Marijuana Sexual activity: Not on file Family History Adopted: Yes Problem Relation Name Age of Onset Osteoarthritis Mother Ovarian cancer Neg Hx Diabetes Paternal Grandmother Hyperlipidemia Father Ulcerative colitis Other 1/2 sibling Colon cancer Neg Hx Breast cancer Paternal Grandmother elderly Prior to Admission medications Medication Sig Start Date End Date Taking? Authorizing Provider mesalamine ER (Apriso) 0.375 g 24 hr capsule Take 4 capsules (1.5 g) by mouth daily. Do not crush or chew. 09/15/22 12/14/22 Alyssia Cast MD Allergies: Not on File Review of Systems: Constitutional: see HPI History obtained from the patient HENT ROS: denies ARMIJO, denies ear pain, denies sore throat, denies sinus pressure, denies runny nose, post nasal drip Eyes: denies blurry vision Respiratory ROS: denies SOB, denies cough Cardiovascular ROS: denies chest pain Gastrointestinal ROS: see HPI Genito-Urinary ROS: denies dysuria Musculoskeletal ROS: +occ joint pain Neurological ROS: denies seizures, weakness, difficulty sleeping Dermatological ROS: denies rash Objective: Physical Exam: There were no vitals taken for this visit. Telehealth Gen: comfortable, appears nourished Skin: warm, dry Eyes: anicteric sclera Chest: normal effort Neuro: nonfocal Psych: normal mood and affect, thought content normal, alert and oriented Labs/Studies reviewed in Epic at today's current clinic visit Lab Results Component Value Date WBC 8.5 05/20/2021 HGB 11.4 (L) 05/20/2021 MCV 93.6 05/20/2021 No results found for: ALT, AST, GGT, ALKPHOS, BILITOT Recent Imaging: No GI results found. Flex Sig 11/16/2018 Pathology DIAGNOSIS: A. LEFT COLON BIOPSY - FRAGMENT OF COLONIC MUCOSA WITH NO SIGNIFICANT HISTOPATHOLOGIC CHANGES B. RECTOSIGMOID, BIOPSY - CHRONIC ACTIVE COLITIS COMMENT: There is marked active colitis with crypt abscesses and mild architectural distortion. Granulomas are not identified. Dysplasia is not identified. The differential diagnosis of this pattern of injury most prominently includes diverticular-associated colitis and inflammatory bowel disease, among others. ASSESSMENT/PLAN: Ulcerative proctitis with complication (HCC) Gastroesophageal reflux disease, esophagitis presence not specified - sx stable --Continue current medications. Apriso and suppositories prn if lower GI sx recur FOLLOW-UP: Advised patient to please follow-up with PCP, and follow-up 1 year in GI clinic following the above evaluation and recommendations. Signed By: ALYSSIA CAST MD documented in this encounter [facility] 11-12-2022 Instructions Alyssia Cast MD - 11/12/2022 2:30 PM EST --Continue current medications --Please follow-up with your PCP and 1 year with me in GI clinic following the above evaluation and recommendations. documented in this encounter [facility] Evaluation note Diagnosis History of gestational diabetes in prior , currently with other poor obstetric history documented in this encounter [facility] Work Phone: Evaluation note* Diagnosis care, antepartum documented in this encounter [facility] Work Phone: Evaluation note* Diagnosis Encounter for gynecological examination without abnormal finding- Primary Hemorrhoids, unspecified hemorrhoid type [facility] Diagnosis Hemorrhoids, unspecified hemorrhoid type- Primary documented in this encounter [facility] note* Diagnosis Ulcerative proctitis with complication (HCC)- Primary Ulcerative proctitis with complication (HCC) documented in this encounter [facility] note* Diagnosis Well woman exam with routine gynecological exam Routine gynecological examination Cervical cancer screening Screening for malignant neoplasm of the cervix Ulcerative proctitis with complication (HCC) documented in this encounter [facility] note* Diagnosis Ulcerative proctitis with complication (HCC) documented in this encounter [facility] note* Diagnosis Ulcerative proctitis with complication (HCC)- Primary documented in this encounter [facility] noteNo assessment information availableOjai Valley [facility] Work Phone: Hospital Discharge instructions* Attachments The following attachments cannot be sent through Care Everywhere. * Colonoscopy Discharge Instructions (Korean) * Moderate Sedation in Adults Discharge Instructions (Korean) [facility] Consultation (Routine) - Pending Review Specialty Diagnoses / Procedures Referred By Екатерина torres Referred To Contact General Surgery Diagnoses Hemorrhoids, unspecified hemorrhoid type Procedures OR OFFICE/OUTPATIENT [facility] 60-74 MINUTES Arabella Ryan MD [address] [place] [id number] [facility] [address] [place] [address] Referral ID Status Reason Start Date Expiration Date Visits Requested Visits Authorized [id number] Pending Review Specialty Services Required 04/12/2023 04/11/2024 1 1 [facility] for referral (narrative)No reason for referral information availableBlHighland Springs [facility] Work Phone: Reason for visit Narrative* Auth/Cert (Routine) Specialty Diagnoses / Procedures Referred By Екатерина torres Referred To Contact Diagnoses 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) [K51.219] Procedures OR COLONOSCOPY FLX DX W/COLLJ SPEC WHEN PFRMD COLONOSCOPY Alyssia Cast MD [address] [place] [address] Phone: tel: fax: [facility] [address] [place] [address] Phone: tel: Referral ID Status Reason Start Date Expiration Date Visits Re quested Visits Authorized [id number] 1 1 [facility] Assessments Diagnosis History of gestational diabetes mellitus (GDM) in prior , currently in first trimester Diagnosis Uterine size-date discrepancy in third trimester Uterine size date discrepancy, antepartum condition or complication Supervision of high risk , antepartum Rubella non-immune status, antepartum Other specified complication, antepartum History of gestational diabetes mellitus (GDM) in prior , currently in first trimester Chronic ulcerative rectosigmoiditis with complication (HCC) Ulcerative (chronic) proctosigmoiditis Term delivered Term Diagnosis with inconclusive viability, single or unspecified fetus Advance Directives Documents on File Type Date Recorded Patient Auriculotherapist Expl anation Advance Directives and Living Will Power of Dean Of Student Services Latest Code Status on File Code Status Date Activated Date Inactivated Comments Full Code 11/16/2018 9:16 AM 11/16/2018 12:11 PM Full Code 03/07/2018 11:14 AM 03/07/2018 5:28 PM Full Code 07/25/2016 3:13 AM 07/27/2016 3:38 PM Full Code 07/24/2016 5:26 PM 07/25/2016 3:13 AM Documents on File Type Date Recorded Patient Auriculotherapist Expl anation ACP-Advance Directive ACP-Power of Dean Of Student Services Latest Code Status on File Code Status Date Activated Date Inactivated Comments Full Code 09/21/2019 10:23 PM 09/23/2019 3:33 PM Full Code 09/21/2019 4:49 PM 09/21/2019 9:06 PM Full Code 11/16/2018 9:16 AM 11/16/2018 12:11 PM Latest Code Status on File Code Status Date Activated Date Inactivated Comments Full Code 09/21/2019 10:23 PM Date Activated Date Inactivated Comments 08/31/2024 9:28 AM 08/31/2024 12:40 PM Date Activated Date Inactivated Comments 08/31/2024 9:28 AM 08/31/2024 12:40 PM Summary Purpose Family History Relationship Condition Age at Onset Recorded Date/T aileen Not Specified Diabetes mellitus Unknown Hyperlipidemia Unknown Osteoarthritis Unknown Malignant neoplasm of breast Unknown Ulcerative colitis Unknown Discharge Instructions * Instructions* Warren Castillo MD - 09/23/2019 : Care Instructions Your Care Instructions After childbirth ( period), your body goes through many changes. Some of these changes happen over several weeks. In the hours after delivery, your body will begin to recover from childbirth while it prepares to breastfeed your . You may feel emotional during this time. Your hormones can shift your mood without warning for no clear reason. In the first couple of weeks after childbirth, many women have emotions that change from happy to sad. You may find it hard to sleep. You may cry a lot. This is called the baby blues. These overwhelming emotions often go away within a couple of days or weeks. But it's important to discuss your feelings with your doctor. It is easy to get too tired and overwhelmed during the first weeks after childbirth. Don't try to do too much. Get rest whenever you can, accept help from others, and eat well and drink plenty of fluids. In the first couple of weeks after giving , your doctor or shipping clerk may want to check in with you and make a plan for any follow-up care you may need. You will likely have a complete visit in the first 3 months after delivery. At that time, your doctor or shipping clerk will check on your recovery from childbirth. He or she will also see how you are doing with your emotions and talk aboutyour concerns or questions. Follow-up care is a reyes part of your treatment and safety. Be sure to make and go to all appointments, and call your doctor if you are having problems. It's also a good idea to know your test resultsand keep a list of the medicines you take. How can you care for yourself at home? Sleep or rest when your baby sleeps. Get help with engineering mechanic from family or friends, if you can. Do not try to do it all yourself. If you have hemorrhoids or swelling or pain around the opening of your vagina, try using cold and heat. You can put ice or a cold pack on the area for 10 to 20 minutes at a time. Put a thin cloth between the ice and your skin. Also try sitting in a few inches of warm water (sitz bath) 3 times a dayand after bowel movements. Take pain medicines exactly as directed. ? If the doctor gave you a prescription medicine for pain, take it as prescribed. ? If you are not taking a prescription pain medicine, ask your doctor if you can take an [id number]-smnyffi medicine. Eat more fiber to avoid constipation. Include foods such as whole-grain breads and cereals, raw vegetables, raw and dried fruits, and beans. Drink plenty of fluids, enough so that your urine is light yellow or clear like water. If you have kidney, heart, or liver disease and have to limit fluids, talk with your doctor before you increase the amount of fluids you drink. Do not rinse inside your vagina with fluids (douche). If you have stitches, keep the area clean by pouring or spraying warm water over the area outside your vagina and anus after you use the toilet. Keep a list of questions to ask your doctor or shipping clerk. Your questions might be about: ? Changes in your breasts, such as lumps or soreness. ? When to expect your menstrual period to start again. ? What form of control is best for you. ? Weight you have put on during the . ? Exercise options. ? What foods and drinks are best for you, especially if you are . ? Problems you might be having with . ? When you can have sex. Some women may want to talk about lubricants for the vagina. ? Any feelings of sadness or restlessness that you are having. When should you call for help? [id number] anytime you think you may need emergency care. For example, call if: You have thoughts of harming yourself, your baby, or another person. You passed out (lost consciousness). You have chest pain, are short of breath, or cough up blood. You have a seizure. Call your doctor now or seek immediate medical care if: Your vaginal bleeding seems to be getting heavier. You are dizzy or lightheaded, or you feel like you may faint. You have a fever. You have new or more belly pain. You have symptoms of a blood clot in your leg (called a deep vein thrombosis), such as: ? Pain in the calf, back of the knee, thigh, or groin. ? Redness and swelling in your leg or groin. You have signs of preeclampsia, such as: ? Sudden swelling of your face, hands, or feet. ? New vision problems (such as dimness, blurring, or seeing spots). ? A severe headache. Watch closely for changes in your health, and be sure to contact your doctor if: You have new or worse vaginal discharge. You feel sad or depressed. You are having problems with your breasts or . Where can you learn more? Go to [email or web address] and sign in to your [employer] account. Enter Z768 in the Search Health Information box to learn more about : Care Instructions. If you do not have an account, please click on the Sign Up Now link. Current as of: June 22, 2018 Content Version: [id number] [employer]. Care instructions adapted under license by [employer]. If youhave questions about a medical condition or this instruction, always ask your healthcare professional. [employer] disclaims any warranty or liability for your use of this information. documented in this encounter History of Present Illness * Nisha Jaffe RN - 09/23/2019 12:52 PM EST Dc instructions, med rec and orders for mom and baby reviewed with mom and dad. States understanding. No questions at this time. Belongings packed and transport called. * Joyce Lockhart IBCLC - 09/23/2019 9:13 AM EST Observed couplet when was latched onto the right breast. Pt c/o cramping of uterus while bf . Reviewed I&o parameters and feeding patterns. Discussed section ofTaking Care of Yourself and Baby booklet.Reviewed: output parameters, contact information, and bfmothers group. Encouraged patient to call for assistance prn. Patient verbalized understanding. * Warren Castillo MD - 09/23/2019 5:54 AM EST POST DAY # 2 Zainab Gonzalez is a 28 y.o. female This patient was seen & examined today. Her was complicated by: Patient Active Problem List Diagnosis Left sided colitis with rectal bleeding (HCC) Chronic ulcerative rectosigmoiditis with complication (HCC) First degree hemorrhoids History of gestational diabetes mellitus (GDM) in prior , currently in first trimester Chronic ulcerative rectosigmoiditis with complication (HCC) Rubella non-immune status, antepartum Supervision of high risk , antepartum care, antepartum Uterine size-date discrepancy in third trimester Term delivered She is doing well today without any complaints. Vital Signs: Vitals: 09/21/19 1917 09/21/19 2114 09/22/19 0842 09/22/192058 BP: 112/76 108/75 105/70 102/76 Pulse: 96 84 90 91 Resp: 16 16 Temp: 97.6 F (36.4 C) 97.3 F (36.3 C) 98.4 F (36.9 C) TempSrc: Temporal Temporal Temporal SpO2: 98% 97% 95% Weight: Height: Physical Exam: General: no apparent distress, alert and cooperative Abdomen: abdomen soft, non-distended, non-tender Fundus: non-tender, normal size, firm, below umbilicus Assessment and Plan: Zainab Gonzalez is a PPD # 2 s/p - Doing well, VSS - female infant 1. Ulcerative colitis - Chronic ulcerative rectosigmoiditis - Follows with GI - Mesalamine suppositories - Currently asymptomatic - Has f/u with GI already arranged 2. Contraception: Per private attending 3. DVT prophylaxis: Not indicated 4. Antihypertensive medication: None 5. Disposition: Likely discharge home today, per private attending's discretion I reviewed and agree with the care provided by the resident during or immediately following the visit including the patient's medical history, the resident's findings in the physical exam, patient's diagnosis and treatment plan. * Nancy Cochran RN - 09/22/2019 3:26 PM EST Did not observe latch, patient is confident that baby is nursing well. 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 Reviewed feeding cues, feeding patterns, skin to skin, recommendation on pacifier and bottle.Shown section of Taking Care of Yourself and Baby booklet.Reviewed: output parameters, contact information, and bf mothers group. Encouraged patient to call for assistance prn. Patient verbalized understanding. Encouraged to call for latch obs as needed. * Sue Nichols MD - 09/22/2019 6:37 AM EST POST DAY # 1 Zainab Gonzalez is a 28 y.o. female This patient was seen & examined today. Her was complicated by: Patient Active Problem List Diagnosis Left sided colitis with rectal bleeding (HCC) Chronic ulcerative rectosigmoiditis with complication (HCC) First degree hemorrhoids History of gestational diabetes mellitus (GDM) in prior , currently in first trimester Chronic ulcerative rectosigmoiditis with complication (HCC) Rubella non-immune status, antepartum Supervision of high risk , antepartum care, antepartum Uterine size-date discrepancy in third trimester Term delivered Today she is doing well without any chief complaint. Her lochia is light. She denies chest pain, shortness of breath and headache. She is ambulating well. She is tolerating solids. Vital Signs: Vitals: 09/21/19 1847 09/21/19 1902 09/21/19 1917 09/21/19 2114 BP: 107/75 108/73 112/76 108/75 Pulse: 106 96 96 84 Resp: 16 Temp: 97.6 F (36.4 C) TempSrc: Temporal SpO2: 98% Weight: Height: Physical Exam: General: no apparent distress, alert and cooperative Affect: appropriate Lungs: No increased work of breathing, good air exchange, clear to auscultation bilaterally, no crackles or wheezing Heart: regular rate and rhythm Abdomen: abdomen soft, non-distended, non-tender Fundus: non-tender, normal size, firm, below umbilicus Extremities: no calf tenderness, non edematous Lab: Lab Results Component Value Date HGB 12.0 09/21/2019 Lab Results Component Value Date HCT 34.1 (L) 09/21/2019 A POS Antibody Screen: Antibody Screen Date Value Ref Range Status 09/21/2019 NEG NA Final Comment: Test Performed by [facility], [address] [place] [id number] Lab Results Component Value Date RUBELLAIGG 7.0 03/15/2019 LABOR DELIVERY ??? SCD's ONLY (labor through ambulation) SCD's PLUS Prophylactic Anticoagulation until discharge SCD's PLUS Prophylactic Anticoagulation for 6 weeks SCD's PLUS Therapeutic Anticoagulation for 6 weeks Vaginal Delivery [] BMI ? 40 kg/m2 Delivery All patients Vaginal Delivery [] BMI ? 40 kg/m2 AND [] Antepartum hospitalization ? 72 hours within the past month Delivery 1 Major Risk Factor: [] BMI ? 35 kg/m2 [] Low Risk Thrombophilia [] PPH+RBCs, IR, or operation [] Infection+Antibiotics [] Antepartum hospitalization ? 72 hours within the past month [] PMH: Sickle Cell, SLE, Cardiac Dz, Active IBD, Active Cancer, Nephrotic Syndrome OR 2 Minor Risk Factors: [] Multiple gestation [] Age > 40 [] PPH ? 1,000cc [] (+)FMH of VTE [] Smoker [] Preeclampsia [] BMI ? 40 kg/m2 AND [] Low Risk Thrombophilia OR ANY OF THE FOLLOWING: [] High Risk Thrombophilia without prior VTE [] Low Risk Thrombophilia with (+)FMH of VTE [] Any single prior VTE ANY OF THE FOLLOWING: [] Already on LMWH/UFH [] Multiple prior VTE [] High Risk Thrombophilia with prior VTE Low Risk Thrombophilia: FVL (heterozygous), Prothrombin (heterozygous), Protein C, Protein S High Risk Thrombophilia: FVL (homozygous), Prothrombin (homozygous), FVL+Prothrombin (heterozygous), Antithrombin III, APLS Assessment/Plan: 1. Zainab Gonzalez is a PPD # 1 s/p - Doing well, VSS - female infant - Encourage ambulation 2. Breast feeding 3. Contraception: per private attending 4. VTE Prophylaxis: Not Indicated 5. Continue current care 6. Ulcerative colitis - Chronic ulcerative rectosigmoiditis follows with GI - Last flex sig 11/16/2018 no dysplasia - Mesalamine zuppositories - F/u with GI 2-3 months Provider's Name: MD Karley Mccarty DO 09/22/2019, 6:38 AM I reviewed and agree with the care provided by the resident/CNM/ROSA during the visit including the patient's medical history, the resident's findings in the physical exam, patient's diagnosis and treatment plan. * Karley Gonzales DO - 09/21/2019 4:48 PM EST Department of Obstetrics and Gynecology Labor and Delivery Triage Note CHIEF COMPLAINT: Contractions HISTORY OF PRESENT ILLNESS: The patient is a 28 y.o. 39w5d. OB History 3 Para 1 Term 1 0 AB 1 Living 1 SAB 1 TAB 0 Ectopic 0 Molar Multiple 0 Live Births 1 Obstetric Comments sab 8 wks Gestational diabetes second Patient presents with a chief complaint as above. Denies DFM/VB/LOF Estimated Due Date: Estimated Date of Delivery: 09/23/19 PAST MEDICAL HISTORY: Past Medical History: Diagnosis Date control Condoms/radha family planning- hx of OCP camrese Body mass index (BMI) of 24.0-24.9 in adult Dysmenorrhea having vomiting on Day 1 of period, started zofran Family history of breast cancer brca offered Gestational diabetes 04/29/2016 History of vaccination against human papillomavirus DECLINED GARDASIL Menorrhagia Missed SCHEDULED FOR THE SURGERY ON 03/07/2018 Nausea & vomiting uses zofran first day or 2 of period Ulcerative colitis (HCC) PAST SURGICAL HISTORY: Past Surgical History: Procedure Laterality Date DILATION AND CURETTAGE OF UTERUS 03/07/2018 SIGMOIDOSCOPY 11/16/2018 bx taken SOCIAL HISTORY: reports that she has never smoked. She has never used smokeless tobacco. She reports that she does not drink alcohol or use drugs. MEDICATIONS: Prior to Admission medications Medication Sig Start Date End Date Taking? Authorizing Provider ranitidine (ZANTAC) 150 MG tablet Take 1 tablet by mouth 2 times daily 08/28/19 Yes VINCE Mckeon CNP mesalamine (CANASA) [address] 1 suppository rectally nightly 08/21/19 11/19/19 Yes Alyssia Cast MD mesalamine (CANASA) [address] 1 suppository rectally nightly 07/21/19 Yes Alyssia Cast MD ondansetron (ZOFRAN-ODT) 4 MG disintegrating tablet TAKE 1 TABLET BY MOUTH 3 TIMES DAILY NEEDED FOR NAUSEA OR VOMITING 03/15/19 Yes VINCE Mckeon CNP raNITIdine HCl (ZANTAC PO) Take by mouth Yes Historical Provider, mesalamine (APRISO) 0.375 g extended release capsule Take 1.5 g by mouth daily Yes Historical Provider, [place]-3 Fatty Acids (FISH OIL PO) Take by mouth Yes Historical Provider, Acetaminophen (TYLENOL PO) Take by mouth Yes Historical Provider, Vit w/Ge-Hufmwpfrn-EO (PNV PO) Take by mouth Yes Historical Provider, CARE: Complicated by: 1. Rubella nonimmune 2. Hx of gestational diabetes in prior 3. Crohn's disease REVIEW OF SYSTEMS: Pertinent items are noted in HPI. APPEARANCE: Pain: yes PHYSICAL EXAM: Vital Signs: VS wnl-reviewed/Respirations normal effort There were no vitals filed for this visit. Abdomen: soft, NT, ND, no rebound/guarding Uterus: gravid/guarding LE Edema: trace heart rate: Category I Cervix: 7/90/-1 Contraction frequency: regular, every 2 minutes Membranes: Intact GENERAL LABS: No results found for this or any previous visit (from the past 24 hour(s)). TRIAGE COURSE: Admit for active labor IMPRESSION: Active Labor DISCUSSED WITH [facility] PROVIDER: Dr. Cee DISPOSITION: Admit to L&D Associated attestation - Devan Kebede III, MD - 09/21/2019 5:12 PM EST I reviewed and agree with the care provided by the resident/CNM/ROSA during the visit including the patient's medical history, the resident's findings in the physical exam, patient's diagnosis and treatment plan. documented in this encounter Chief Complaint and Reason for Visit Chief Complaint Admit Date 6 M FU April 26, 2025 9:17 am Additional Source Comments INFORMATION SOURCE (unrecogn ized section and content) DATE CREATED AUTHOR 10/09/2019 [facility] DATE CREATED AUTHOR AUTHOR'S ORGANIZ ATION 09/05/2020 [employer] DATE CREATED AUTHOR AUTHOR'S ORGANIZ ATION 09/06/2020 [facility] [place] DATE CREATED AUTHOR AUTHOR'S ORGANIZ ATION 05/24/2021 [facility] DATE CREATED AUTHOR AUTHOR'S ORGANIZ ATION 08/17/2021 [facility] DATE CREATED AUTHOR AUTHOR'S ORGANIZ ATION 11/17/2024 [facility] DATE CREATED AUTHOR AUTHOR'S ORGANIZ ATION 2024 [facility] Reason for Visit (unrecogniz ed section and content) Reason Comments Contractions Reason Comments Annual Exam Reason Comments 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 Ryan Specialty Diagnoses / Procedures Referred By Екатерина torres Referred To Contact General Surgery Diagnoses Hemorrhoids, unspecified hemorrhoid type Procedures OR OFFICE/OUTPATIENT [facility] 60-74 MINUTES Arabella Ryan MD [address] [place] [address] [facility] [address] [facility] [address] [place] [address] Referral ID Status Reason Start Date Expiration Date V isits Requested Visits Authorized [id number] Closed Specialty Services Required 04/12/2023 04/11/2024 1 1 Reason Onset Date Comments Chest Injury 07/19/2023 Reason Onset Date Comments Med Refill 09/06/2023 Reason Comments Follow-up Reason Comments Annual Exam Well womanLast pap-, normal Reason Onset Date Comments Med Refill 09/20/2024 mesalamine ER (A priso) 0.375 g 24 hr capsule Reason Onset Date Comments Appointment Request 09/20/2024 Care Teams (unrecognized sec tion and content) Electrician Outside Relationship Specialty Start Date End Date Miky Askew DO [address] [place] [phone] PCP - General 03/25/16 Electrician Outside Relationship Specialty Start Date End Date Miky Askew DO [address], [phone] PCP - General 03/25/16 Electrician Outside Relationship Specialty Start Date End Date Miky Askew DO [address] [place] [phone] PCP - General 03/25/16 Electrician Outside Relationship Specialty Start Date End Date Miky Askew DO [address] [place] [phone] PCP - General 03/25/16 Electrician Outside Relationship Specialty Start Date End Date Miky Askew DO [address] [place] [phone] PCP - General 03/25/16 Electrician Outside Relationship Specialty Start Date End Date Miky Askew DO [address] [place] [phone] PCP - General 03/25/16 Electrician Outside Relationship Specialty Start Date End Date Miky Askew DO [address] [place] [phone] PCP - General 03/25/16 Electrician Outside Relationship Specialty Start Date End Date Miky Askew DO [address] [place] [phone] PCP - General 03/25/16 Electrician Outside Relationship Specialty Start Date End Date Miky Askew DO [address] [place] [phone] PCP - General 03/25/16 Electrician Outside Relationship Specialty Start Date End Date Miky Askew DO [address] [place] [phone] PCP - General 03/25/16 Electrician Outside Relationship Specialty Start Date End Date Miky Askew DO [address] [place] [phone] PCP - General 03/25/16 Team Status: Inactive Member Role/Relationship Status Dates CONNOR QureshiC Attending Provider Active Start: April 26, 2025 End: April 26, 2025 Scheduled Active and Recently Administ ered Medications (unrecognized section and content) Medication Order 08/29/2024 08/30/2024 08/31/2024 sodium chloride 0.9% (NS) flush 10 mL 10 mL, IntraVENous, Every 12 hours scheduled (2 times per day), First dose on Samira 08/31/24 at 0945 0945 (Canceled Entry - Provider: Automatic Discharge Provider - Comment: Automatically canceled at discontinue of medication order) sodium chloride 0.9% (NS) flush 10 mL 10 mL, IntraVENous, Every 12 hours scheduled (2 times per day), First dose on Samira 08/31/24 at 0930, Preprocedure 0930 (Canceled Entry - Provider: Automatic Discharge Provider - Comment: Automatically canceled at discontinue of medication order) PRN Medication Order 08/29/2024 08/30/2024 08/31/2024 ondansetron (Zofran) injection 4 mg 4 mg, IntraVENous, Once PRN, nausea, vomiting, Starting on Samira 08/31/24 at 0928, For 1 dose, Preprocedure sodium chloride 0.9 % infusion 5-250 mL/hr, IntraVENous, PRN, if patient receiving piggyback infusions and maintenance fluids are not ordered OR KVO fluids to protect IV site / prevent frequent line interruptions/ long duration, Starting on Samira 08/31/24 at 0935, For piggyback infusion, administer at same rate as piggyback for a total of 25 mL. Enter 25 mL into dose field and piggyback rate into rate field of order. If piggyback is infusing at a rate less than 100 mL/hr, enter 25 mL into dose field and 100 mL/hr into rate field of order. For KVO fluids, enter rate of 20 mL/hr or less into rate field of order. sodium chloride 0.9 % infusion 5-250 mL/hr, IntraVENous, PRN, if patient receiving piggyback infusions and maintenance fluids are not ordered OR KVO fluids to protect IV site / prevent frequent line interruptions/ long duration, Starting on Samira 08/31/24 at 0928, Preprocedure, For piggyback infusion, administer at same rate as piggyback for a total of 25 mL. Enter 25 mL into dose field and piggyback rate into rate field of order. If piggyback is infusing at a rate less than 100 mL/hr, enter 25 mL into dose field and 100 mL/hr into rate field of order. For KVO fluids, enter rate of 20 mL/hr or less into rate field of order. sodium chloride 0.9% (NS) flush 10 mL 10 mL, IntraVENous, PRN, line care, Starting on Samira 08/31/24 at 0935, After every IV line use sodium chloride 0.9% (NS) flush 10 mL 10 mL, IntraVENous, PRN, line care, Starting on Samira 08/31/24 at 0928, Preprocedure, After every IV line use Goals (unrecognized section and content) Goals may be documented in a n alternate section FOR RECORDS PERTAINING TO PATIENTS WHO ARE OR HAVE BEEN ENROLLED IN A CHEMICAL DEPENDENCY/SUBSTANCEABUSE PROGRAM, SOME INFORMATION MAY BE OMITTED. This clinical summary was aggregated from multiple sources. Caution should be exercised in using it in the provision of clinical care. This summary normalizes information from multiple sources, and as a consequence, information in this document may materially change the coding, format and clinical context of patient data. In addition, data may be omitted in some cases. CLINICAL DECISIONS SHOULD BE BASED ON THE PRIMARY CLINICAL RECORDS. [facility] [employer] [facility]. provides no warranty or guarantee of the accuracy or completeness of information in this document.
== END | disposition home or self-care (01) ==
PROVIDERS: PCP Family Medicine; Referring Provider Nurse Practitioner Acute Care; Visit Provider Nurse Practitioner Acute Care
DX: K51.20 Ulcerative (chronic) proctitis without complications (principal)
CPT/HCPCS: 36415; 80053; 85025; 86140

== ENCOUNTER 2025-09-05 08:11 | Day surgery (SDC) | payer OTHER, SELFPAY ==
[2025-09-05] VITALS (9 sets, daily range): BP systolic 91–114; BP diastolic 65–89; PULSE 75–86; RESP 16; TEMP 36.1–37; O2SAT 94–100; BMI 24.5
--- NOTE | 2025-09-05 08:20 | HP.PCM_ITS ---
HPI - General General Date of Admission: 09/05/25 Date of Service: 09/05/25 Chief Complaint: Ulcerative proctitis HPI Narrative LINH GONZALEZ, is a 34 female presents for initial consultation with a PMH of Ulcerative Proctitis, initially diagnosed in 2015. Symptoms have been managed with Apriso daily and Canasa PRN. She denies any pain, bleeding or diarrhea. Colonoscopy was last performed August and showed very limited inflammation and a secondary pattern with mild activity (intraepithelial lymphocytosis and focal surface injury) is present. She denies ever having diarrhea, she is at baseline with one BM daily on Mesalamine (Apriso). She uses Canasa only when in a flare and denies any use in the past 2 months. She will complete labs and stool testing now and follow-up in six months. STOOL: 1x a day - formed BLEEDING: only during a flare - no bleeding in the past 3 months Mucus: none in past 3 months ABD PAIN: denies Rectal pain: denies Colon: 08/31/2024 ([facility]) Findings: The digital rectal exam was normal. Internal hemorrhoids were found during retroflexion. The hemorrhoids were small and Grade I (internal hemorrhoids that do not prolapse). 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 Note: Although there is some limited active inflammation, the areas of moderate chronicity suggests a predominantly quiescent phase. Still, a secondary pattern with mild activity (intraepithelial lymphocytosis and focal surface injury) is present. While this pattern is subtle, it raises the possibility of an associated lymphocytic colitis. Please correlate clinically. SIGMOIDOSCOPY 11/16/2018 ([facility]) A. LEFT COLON BIOPSY - FRAGMENT OF COLONIC MUCOSA WITH NO SIGNIFICANT HISTOPATHOLOGIC CHANGES B. RECTOSIGMOID, BIOPSY - CHRONIC ACTIVE COLITIS MEDS: Apriso 4 capsules once daily, Canasa PRN - denies any Canasa in the past 2 months CBC: CMP: CRP: VITAMIN B12: VITAMIN D: QUANTIFERON: HBVsAb: HBVsAg: HBV Core Total Ab: Fecal Calprotectin: COLON: MEDS: Mesalamine 1.5g QD, 4 daily, Canasa PRN (last used one week ago) BIOLOGICS: STEROIDS: VACCINES COVID: none recent Varicella Vaccine: exposed as a child Shingles Vaccine: denies Hepatitis B Vaccine: Pneumonia Vaccine: denies Influenza Vaccine: annual IBD SYMPTOMS: Bowel movements are: almost always formed, very rare diarrhea, 1x a day Blood noted in stools: rare occasion, BRB, can be quite a bit but lasts 1-2day Bowel movement urgency present: denies Stool incontinence: denies Nocturnal BM's: denies Abdominal pain: denies Rectal pain: denies QOL: - sick kids bring home illness which has caused some baby flares normally just mucus and maybe a little bit of blood, uses Canasa in these instances ROS: Fever: denies Night Sweats: denies Visual changes: denies Mouth sores: denies Joint pain: denies Skin rashes/Lesions: denies Weight changes: up 6lbs in the past 6 months, increased snacking and decrease in exercise Smoking status: denies NSAID use: very rare - she has been non-compliant with recommendation for labs and stool testing reporting she is too busy RECALL COLONOSCOPY Attestation: Documentation on this patient encounter was supported using ambient scribe technology/ voice AI technology. The patient consented to recording for the purpose of documenting the encounter. Provider reviewed content of the generated note prior to signature. ON LICENSE OF [facility] Medical History Marijuana use Low iron Anemia Ulcerative colitis Non-smoker Gestational diabetes H/O flexible sigmoidoscopy Left sided colitis with rectal bleeding Home Medications ?Medication ?Instructions ?Recorded ?Last Taken ?Type Lactobacillus acidophilus 10 10,000 mmu cells PO ONCE 10/12/24 Unknown History billion cell capsule (Probiotic) mesalamine 0.375 gram 1.5 g PO QAM 10/12/24 Unknow n History capsule,extended release 24 hr multivitamin 1 tab PO QDAY 10/24/24 Unkno wn History ondansetron HCl 4 mg tablet 4 mg PO Q8H PRN nausea and vomiting 10/24/24 Unknown History mesalamine 1,000 mg rectal 1 g PA QHS PRN colitis #30 ea 03/08/25 Unknown Rx suppository (Canasa) Allergy/AdvReac Type Severity Reaction Status Date / Time latex AdvReac Itching Verified 08/31/25 13:48 Hives Family History Other Breast cancer Diabetes Hyperlipidemia Osteoarthritis Ulcerative colitis Surgical History Hx of colonoscopy History of dilation and curettage Social History adopted: Yes Smoking Status: Never smoker Electronic Cigarette Use: not used alcohol intake: never substance use type: marijuana ROS Constitutional Constitutional: Denies fatigue, fever(s), poor appetite, weight gain or weight loss Gastrointestinal Gastrointestinal: Denies belching, bloating, change in bowel habits, change in stool character, chewing difficulty, coffee ground emesis, constipation, cramping, diarrhea, dyspepsia, dysphagia, early satiety, excessive flatus, fecal incontinence, heartburn, hematemesis, hematochezia, hemorrhoids, loose stools, melena, nausea, odynophagia, rectal bleeding, tenesmus, vomiting or weight changes Physical Exam Const alert, oriented x3, no apparent distress and healthy appearing General Appearance: cooperative GI normal to inspection, nondistended, normoactive bowel sounds, soft to palpation, non-tender and non-distended Percussion: normal to percussion Rectal Exam: deferred Assessment & Plan Assessment/Plan (1) Ulcerative proctitis: PLAN: Assessment and Plan Assessment and Plan (1) Ulcerative proctitis: Status: Acute Plan: The patient should continue using mesalamine as prescribed and avoid nonsteroidal anti-inflammatory drugs to prevent flares. Blood work is recommended to monitor the condition and assess kidney function due to mesalamine use. (2) Hemorrhoid: Status: Acute Plan: The patient is advised to continue monitoring symptoms and use Canasa suppositories as needed for symptom management. A stool test for fecal calprotectin is recommended to differentiate between hemorrhoids and colitis. ]
[2025-09-05 08:35] LABS: Internal QC Validated? YES +Cl - CLEAR BKGD; Pregnancy, Urine Negative Negative; Record Kit Lot#,Urine Preg 0000980607
[2025-09-05] MEDS: Lactated Ringers 1,000 ML 15 ML IV (08:58)
--- NOTE | 2025-09-05 08:58 | PCM.PRE.AN2 ---
ASA Classification* ASA Classification ASA Classification: 2 Assessment & Plan Anesthesia* Anesthesia Assessment Anesthesia Assessment: Discussed sedation and/or anesthesia options, risks, benefits, and alternatives with patient/parents/legal guardian/POA. Questions invited. The patient/parents/legal guardian/POA seems to understand and agrees to proceed with anesthesia plan. Reviewed the physical assessment, medical history, allergy history and patient home medications list prior to surgery/procedure/anesthetic and documented any changes. Performed airway and anesthesia risk assessments. Anesthesia Type Anesthesia Type: MAC History Source History Obtained from:: Patient and Chart Anesthesia Focused Assessment* Temperature: 98.6 F Pulse Rate: 86 Blood Pressure: 114/89 Respiratory Rate: 16 Pulse Ox: 100 Oxygen Delivery Method: Room Air Airway Assessment Mouth opens: >3 cm Mallampati Score: I Teeth Condition: Intact and Loose (Patient has a retained pediatric canine on the left upper jaw which is slightly loose.) Neck Range of motion (ROM): Full ROM Labs Anesthesia Preop lab: CBC WBC, (4.4-11.0) 6.3 K/mm3 04/26/25, 10:06 RBC, (4.2-5.4) 3.73 M/mm3 L 04/26/25, 10:06 Hgb, (12.0-15.0) 11.6 g/dL L 04/26/25, 10:06 Hct, (37-47) 34.2 % L 04/26/25, 10:06 Plt Count, (150-450) 209 K/mm3 04/26/25, 10:06 CHEMISTRY Potassium, (3.3-5.1) 4.2 mmol/L 04/26/25, 10:06 Sodium, (133-145) 139 mmol/L 04/26/25, 10:06 BUN, (4-19) 14 mg/dL 04/26/25, 10:06 Creatinine, (0.70-1.20) 0.65 mg/dL L 04/26/25, 10:06 Glucose, (70-99) 82 mg/dL 04/26/25, 10:06 COAG Urine Test Negative Negative Today, 08:20 Pre-Assessment Diagnosis/Proposed Procedure Planned Operative Procedure(s): cscope Anesthesia History 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 When Was Last Pacemaker Check QUESTION #4 FULL TEXT: You/Your Family Experience fever (hyperthermia) with Anesthesia Last Oral Intake Last Oral intake: Last Oral Intake NPO since 07:00 09/05/25 08:41 Meds taken in AM with sips of water? 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 Female Yes 08/31/25 13:49 HX of Motion Sickness Yes 08/31/25 13:49 HX of N/V After Surgery No 08/31/25 13:49 Non-Smoker Yes 08/31/25 13:49 Duration of Surgery greater No 08/31/25 13:49 than 60 minutes Number of Risk Factors 3 08/31/25 13:49 PONV Score Moderate Risk 08/31/25 13:49 Height & Weight Height & Weight: Anesthesia: Height & Weight Height 5 ft 3 in 09/05/25 08:41 Weight: 63 kg 09/05/25 08:41 Body Mass Index (BMI) 24.5 09/05/25 08:41 Respiratory Assessment Respiratory Assessment - boring machine operator: Respiratory Tract Infection Hx - boring machine operator Hx Respiratory Tract Infection No 08/31/25 13:49 STOP Sleep Apnea STOP Sleep Apnea - boring machine operator: STOP Sleep Apnea - boring machine operator Hx Hypertension No 08/31/25 13:49 Hx Sleep Apnea No 08/31/25 13:49 CPAP BIPAP Do you snore loudly (louder No 08/31/25 13:49 than talking or can be heard Do you often feel tired/ No 08/31/25 13:49 fatigued/ sleepy during daytime? Has anyone observed you stop No 08/31/25 13:49 breathing during sleep? STOP Results Negative 08/31/25 13:49 QUESTION #5 FULL TEXT : Do you snore loudly (louder than talking or can be heard through closed doors)? 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 Specify any problems Hx of Preganancy in last 3 N/A 08/31/25 13:49 Months Nurse Filling Out Transfusion NBUCHER 08/31/25 13:49 & Questions: Date: 08/31/25 08/31/25 13:49 Time: 13:49 08/31/25 13:49 Patient unable to answer at this time (ie. confused, unrespo /Reproduction History /Reproductive History - boring machine operator: /Reproductive Hx- boring machine operator Hx Now No 08/31/25 13:49 Gestational Age (in weeks): EDC: Hx Hx Para Hx Section SAB No 08/31/25 13:49 Does the father of the baby or his family experience fever w Father of the baby Malignant Hypertension history comment Active Medications Active Medications: Current Medications Generic Name Dose Route Start Last Admin Trade Name Freq PRN Reason Stop Dose Admin Lactated Ringer's 1,000 mls @ 15 mls/hr 09/05/25 08:30 09/05/25 08:58 IV 15 mls/hr .Q48H CRISTOBAL Administration PFSH Medical History Marijuana use Low iron Anemia Ulcerative colitis Non-smoker Gestational diabetes H/O flexible sigmoidoscopy Left sided colitis with rectal bleeding Home Medications ?Medication ?Instructions ?Recorded ?Last Taken ?Type Lactobacillus acidophilus 10 10,000 mmu cells PO ONCE 10/12/24 Unknown History billion cell capsule (Probiotic) mesalamine 0.375 gram 1.5 g PO QAM 10/12/24 Unknown History capsule,extended release 24 hr multivitamin 1 tab PO QDAY 10/24/24 Unknown History ondansetron HCl 4 mg tablet 4 mg PO Q8H PRN nausea and vomiting 10/24/24 Unknown History mesalamine 1,000 mg rectal 1 g UT QHS PRN colitis #30 ea 03/08/25 Unknown Rx suppository (Canasa) Allergy/AdvReac Type Severity Reaction Status Date / Time latex AdvReac Itching Verified 09/05/25 08:35 Hives Family History Other Breast cancer Diabetes Hyperlipidemia Osteoarthritis Ulcerative colitis Surgical History Hx of colonoscopy History of dilation and curettage Social History adopted: Yes Smoking Status: Never smoker Electronic Cigarette Use: not used alcohol intake: never substance use type: marijuana Review of Systems (Anesthesia) ROS Narrative System reviewed and no additional complaints, except as documented.
--- NOTE | 2025-09-05 09:15 | COLBX_PTH ---
PATIENT: LINH GONZALEZ LOC: EN U#:[id number] AGE/SX: 34/F ROOM: RE09/05/[address]: Dr. Robert De Jesus DO : 1990 BED: DIS: 09/05/2025 SPEC #: [id number] RECD: 09/05/25 11:10 STATUS: GILMA RERosendo #: [id number] DAFNE: 09/05/25 09:[address]: Robert De Jesus DEPT: SURGICAL PATHOLOGY RECD BY: Abraham Cortez ENTERED: 09/05/25 14:30 SP TYPE: COLON BX SERENITY DR: Dr. Miky Sy DO Tissues: A - Ileum, NOS B - COLON BIOPSY C - Transverse colon D - COLON BIOPSY E - Rectum, NOS Procedures: Surgery Specimen Level IV HEADER OPERATION: Colonoscopy with biopsy PRE-OP DIAGNOSIS: Ulcerative proctitis TISSUE SUBMITTED: A- Terminal ileum biopsy, B- Right colon biopsy, C- Transverse colon biopsy, D- Left side colon biopsy, E- Rectal colon biopsy MICROSCOPIC DIAGNOSIS A. Small intestine, terminal ileum, biopsy: - Small bowel mucosa with no pathologic change B. Colon, right, biopsy: - Colonic mucosa with no pathologic change C. Colon, transverse, biopsy: - Colonic mucosa with no pathologic change D. Colon, left, biopsy: - Colonic mucosa with no pathologic change E. Rectum, biopsy: - Mild active chronic proctitis - Negative for dysplasia MICROSCOPIC DESCRIPTION Slides are reviewed. GROSS DESCRIPTION A. Received in fixative is one container labeled with the patient's name and designated Terminal ileum biopsy. The specimen consists of three irregular fragments of braxton tissue that measure 0.3 to 0.5 cm. The specimen is totally submitted in one cassette. B. Received in fixative is one container labeled with the patient's name and designated Right colon biopsy. The specimen consists of three irregular fragments of braxton tissue that measure 0.2 to 0.6 cm. The specimen is totally submitted in one cassette. C. Received in fixative is one container labeled with the patient's name and designated Transverse colon biopsy. The specimen consists of three irregular fragments of braxton tissue that measure 0.4 to 0.5 cm. The specimen is totally submitted in one cassette. D. Received in fixative is one container labeled with the patient's name and designated Left side colon biopsy. The specimen consists of multiple irregular fragments of braxton tissue that in aggregate measure 1 x 0.7 x 0.1 cm. The specimen is totally submitted in one cassette. E. Received in fixative is one container labeled with the patient's name and designated Rectal colon biopsy. The specimen consists of one irregular fragment of braxton tissue that measures 0.8 cm. The specimen is totally submitted in one cassette. ND 09/05/2025 CPT:87001h6
--- NOTE | 2025-09-05 09:44 | OP.PROVAT_ITS ---
09/05/2025 Miky Sy Re : Colonoscopy procedure for Zainab Rosario Shirleyr Yossi This procedure was performed on Friday, September 05, 2025. My impressions and recommendations are as follows: Impressions : - Colitis. Inflammation was found from the rectum to the descending colon and in the transverse colon. This was moderate in severity. Biopsied. - Ileitis. Inflammation was found. This was mild in severity. Biopsied. Recommendations : - Discharge patient to home. - Resume previous diet. - Continue present medications. - Await pathology results. - Repeat colonoscopy in 1 year for surveillance based on pathology results. My findings are described in the full procedure note, which is enclosed. If I can be of further assistance, please feel free to contact me at . Sincerely, Robert Friend, 09/05/2025 9:43:59 AM This report has been signed electronically.
--- NOTE | 2025-09-05 09:44 | OP.COLON_ITS ---
Patient Name: Zainab Rosario Procedure Date: 09/05/2025 9:14 AM Date of : 1990 Age: 34 Procedure: Colonoscopy Indications: Left-sided chronic ulcerative colitis Providers: Robert De Jesus DO Medicines: Monitored Anesthesia Care Patient Profile: This is a 34 year old female. Refer to note in patient chart for documentation of history and physical. Last Colonoscopy: several years ago. Complications: No immediate complications. Procedure: Pre-Anesthesia Assessment: - Prior to the procedure, a History and Physical was performed, and patient medications and allergies were reviewed. The patient is competent. The risks and benefits of the procedure and the sedation options and risks were discussed with the patient. All questions were answered and informed consent was obtained. Patient identification and proposed procedure were verified by the physician in the pre-procedure area. Mental Status Examination: alert and oriented. Airway Examination: normal oropharyngeal airway and neck mobility. Respiratory Examination: clear to auscultation. CV Examination: normal. Prophylactic Antibiotics: The patient does not require prophylactic antibiotics. Prior Anticoagulants: The patient has taken no anticoagulant or antiplatelet agents. ASA Grade Assessment: II - A patient with mild systemic disease. After reviewing the risks and benefits, the patient was deemed in satisfactory condition to undergo the procedure. The anesthesia plan was to use monitored anesthesia care (MAC). Immediately prior to administration of medications, the patient was re-assessed for adequacy to receive sedatives. The heart rate, respiratory rate, oxygen saturations, blood pressure, adequacy of pulmonary ventilation, and response to care were monitored throughout the procedure. The physical status of the patient was re-assessed after the procedure. After I obtained informed consent, the scope was passed under direct vision. Throughout the procedure, the patient's blood pressure, pulse, and oxygen saturations were monitored continuously. The Colonoscope was introduced through the anus and advanced to the terminal ileum. The colonoscopy was performed without difficulty. The patient tolerated the procedure well. The quality of the bowel preparation was adequate. Scope In: 9:18:29 AM Scope Withdrawal Time 0 hours 10 minutes 9 seconds Scope Out: 9:36:01 AM Total Procedure Duration Time 0 hours 17 minutes 32 seconds Findings: The perianal and digital rectal examinations were normal. Inflammation characterized by altered vascularity, congestion (edema), erythema and pseudopolyps was found in a continuous and circumferential pattern from the rectum to the descending colon and in the transverse colon. The transverse colon, the ascending colon and the cecum were spared. The inflammation was moderate in severity. Biopsies were taken with a cold forceps for histology. Verification of patient identification for the specimen was done. Estimated blood loss was minimal. Localized inflammation characterized by aphthous ulcerations was found in the terminal ileum. The inflammation was mild in severity. Biopsies were taken with a cold forceps for histology. Verification of patient identification for the specimen was done. Estimated blood loss was minimal. Impression: - Colitis. Inflammation was found from the rectum to the descending colon and in the transverse colon. This was moderate in severity. Biopsied. - Ileitis. Inflammation was found. This was mild in severity. Biopsied. Recommendation: - Discharge patient to home. - Resume previous diet. - Continue present medications. - Await pathology results. - Repeat colonoscopy in 1 year for surveillance based on pathology results. Procedure Code(s): --- Professional --- 38462, Colonoscopy, flexible; with biopsy, single or multiple CPT copyright 2021 [employer]. All rights reserved. The codes documented in this report are preliminary and upon cnc service technician review may be revised to meet current compliance requirements. Robert De Jesus DO 09/05/2025 9:43:59 AM This report has been signed electronically. Number of Addenda: 0 Note Initiated On: 09/05/2025 9:14 AM
--- NOTE | 2025-09-05 09:48 | PCM.POST.ANE ---
Anesthesia: Postop Eval I Current Vital Signs Temperature: 97.5 F Pulse Rate: 78 Blood Pressure: 91/78 Respiratory Rate: 16 Pulse Ox: 99 Oxygen Delivery Method: Room Air Assessment Airway patent: Yes Spontaneous unlabored respirations: Yes Mental status: Awake nausea: No Vomiting: No Anesthesia Complication: No Fluid Hydration Crystalloid volume administer (ml): 500 Total IV fluid infused: 500 Progress Note Anesthesia document: Postop Eval 1 completed: Yes
--- NOTE | 2025-09-05 16:33 | PCM.POSTANE2 ---
Anesthesia Postop Eval I Sum Postop Eval Completion status Anesthesia document: Postop Eval 1 completed: Yes Anesthesia Postop Eval I Summary Anesthesia Postop Eval I Summary: Anesthesia Postop Eval I: Assessment Summary Airway patent Yes 09/05/25 09:49 [email or web address] Spontaneous unlabored Yes 09/05/25 09:49 [email or web address] respirations Mental status Awake 09/05/25 09:49 [email or web address] nausea No 09/05/25 09:49 [email or web address] Vomiting No 09/05/25 09:49 [email or web address] Anesthesia Postop Eval I: Fluid Summary Crystalloid volume administer 500 09/05/25 09:49 [email or web address] (ml) Colloids volume administered ( ml) Blood Product volume administered (ml) Total IV fluid infused 500 09/05/25 09:49 [email or web address] Anesthesia Postop Eval I: Summary Notes Anesthesia Complication No 09/05/25 09:49 [email or web address] Anesthesia Complication Comment: Post-operative progress note Anesthesia: Postop Eval II Evaluation Mental status: Awake and Calm Pain Level: 0 nausea: No Vomiting: No
== END 2025-09-05 10:35 | disposition home or self-care (01) ==
LOC: EN 08:12 → AC 08:13
PROVIDERS: Anesthesiology; PCP Family Medicine; Referring Provider Family Medicine; Visit Provider Internal Medicine Gastroenterology
PROC: 0DJD8ZZ Inspection of Lower Intestinal Tract, Via Natural or Artificial Opening Endoscopic (ICD-10-PCS; CPT 45378; principal; 2025-09-05 09:10)
DX: K51.20 Ulcerative (chronic) proctitis without complications (principal); K64.9 Unspecified hemorrhoids; K62.89 Other specified diseases of anus and rectum
CPT/HCPCS: 45380; 81025; 88305; J2405